=== PATIENT | female | born 1985 | race Caucasian/White ===

== ENCOUNTER 2019-05-16 12:00 | Outpatient (CLI) | payer OTHER, SELFPAY | END 2019-05-16 12:01 | disposition home or self-care (01) | LOC: SLEEP 05-18 09:25 | PROVIDERS: Family Provider Electrodiagnostic Medicine; PCP Electrodiagnostic Medicine; Visit Provider Internal Medicine | DX: G47.33 Obstructive sleep apnea (adult) (pediatric) (principal) | CPT/HCPCS: G0399 ==

== ENCOUNTER 2019-06-28 06:13 | Day surgery (SDC) | payer OTHER, SELFPAY ==
[2019-06-27 08:38] VITALS: BMI 40.5
--- NOTE | 2019-06-28 06:35 | ANES.PREANE2 ---
Pre-Anesthetic Assessment Pre-Anesthetic Assessment: Height/Weight: Height 1.6 m Weight 103.873 kg Preop Diagnosis: Screening for gastric sleeve Proposed Procedure: Operation Date: 06/28/19 07:40 Proposed Procedures p EGD 84846 K21.9(Not Applicable) - Rasheed Jiménez MD Familial anesthetic complications: None Was Beta Checo taken within 24 hours: N/A Last intake: Intake Last Liquid Date 06/27/19 Last Liquid Time 22:00 Last Solid Date 06/27/19 Last Solid Time 20:00 Social: Social History: No alcohol and No tobacco Exam: Pre-Anes Outpt Exam: alert, oriented x 3, clear to auscultation bilaterally and regular rate & rhythm Airway: Submandibular: WNL Cervical ROM: WNL MP: 2 Dentition: Full Pulmonary: Pulmonary: Sleep apnea (cpap) CV/HEM: CV/HEM: None reported : : None reported Hepatic: Hepatic: None reported GI: GI: None reported Metabolic: Metabolic: Morbid obesity Musc/skel: Musc/skel: None reported Neuropsych: Neuropsych: None reported Anesthetic Plan: ASA status: 2 Anesthesia: MAC Risk of > 500 ml blood loss (7ml/kg in children): No PFSH Anesthesia PFSH: Social History Smoking and tobacco status: never smoked Second hand smoke exposure: No Alcohol intake: never Adopted: No Caregiver/support person: Yes Lives independently: Yes Household members: spouse Housing: House Marital status: service: No Current occupational status: employed Current occupational exposures/hazards: No Pets and animals: No History of recent travel: Yes Leisure activites: exercise Sexually active: Yes Current gender identity: Female Hazel/Anglican: Worship Special hazel needs: No Agree to transfusion: No Financial difficulty paying for basics: Decline to Answer Data Anesthesia Cardiac Studies: No Data to Display
[2019-06-28 06:38] LABS: OR HCG Qualitative Urine Negative (Negative)
[2019-06-28 06:41] VITALS: BP 124/67; PULSE 86; RESP 18; TEMP 36.1; O2SAT 98
[2019-06-28] MEDS: sodium chloride 0.9% 1,000 ML 30 ML IV (06:52)
--- NOTE | 2019-06-28 06:54 | W.PM.OPSUD ---
Surgery/Procedure H&P Update DATE OF PROCEDURE: June 28, 2019 DATE H&P PERFORMED: 06/19/19 H&P UPDATE INFORMATION: I have reviewed H&P completed within last 30 days, I have examined patient prior to procedure and No changes to prior documentation PREOP DIAGNOSIS: Screening for gastric sleeve PRIMARY INDICATION FOR PROCEDURE: History of GERD associated with morbid obesity PLANNED PROCEDURE: Operation Date: 06/28/19 07:40 Proposed Procedures p EGD 02091 K21.9(Not Applicable) - Rasheed Jiménez MD
[2019-06-28 07:47] VITALS: BP 125/63; PULSE 88; RESP 16; TEMP 36.1; O2SAT 96
[2019-06-28 08:01] VITALS: BP 120/63; PULSE 80; RESP 16; TEMP 36.1; O2SAT 99
[2019-06-28 08:10] VITALS: BP 122/80; PULSE 76; RESP 18; O2SAT 96
== END 2019-06-28 08:20 | disposition home or self-care (01) ==
PROVIDERS: Family Provider Electrodiagnostic Medicine; PCP Electrodiagnostic Medicine; Visit Provider Surgery
PROC: 0DJ08ZZ Inspection of Upper Intestinal Tract, Via Natural or Artificial Opening Endoscopic (ICD-10-PCS; CPT 43235; principal; 2019-06-28 07:35)
DX: K21.9 Gastro-esophageal reflux disease without esophagitis (principal); K29.70 Gastritis, unspecified, without bleeding; E66.01 Morbid (severe) obesity due to excess calories; Z68.41 Body mass index [BMI] 40.0-44.9, adult; G47.30 Sleep apnea, unspecified
CPT/HCPCS: 43235; 12345; 84703; J2001; J2704; J7030

== ENCOUNTER → 2019-08-09 13:25 | Outpatient (BNVA) | payer OTHER, SELFPAY | PROVIDERS: Family Provider Electrodiagnostic Medicine; PCP Electrodiagnostic Medicine; Visit Provider Obstetrics & Gynecology | DX: Z11.3 Encounter for screening for infections with a predominantly sexual mode of transmission (principal) | CPT/HCPCS: 86592; 86803; 87340; 87491; 87591; 87661; 87806 ==

== ENCOUNTER → 2019-10-23 13:38 | Outpatient (BNVA) | payer OTHER, SELFPAY | PROVIDERS: Family Provider Electrodiagnostic Medicine; PCP Electrodiagnostic Medicine; Referring Provider Dermatology; Visit Provider Dermatology | DX: L70.0 Acne vulgaris (principal); L73.0 Acne keloid; D22.9 Melanocytic nevi, unspecified; S40.869A Insect bite (nonvenomous) of unspecified upper arm, initial encounter; W57.XXXA Bitten or stung by nonvenomous insect and other nonvenomous arthropods, initial encounter; X58.XXXA Exposure to other specified factors, initial encounter | CPT/HCPCS: 99203; 99204 ==

== ENCOUNTER → 2020-01-17 09:13 | Outpatient (BNVA) | payer OTHER, SELFPAY | PROVIDERS: Family Provider Electrodiagnostic Medicine; PCP Electrodiagnostic Medicine; Visit Provider Surgery | DX: Z20.828 Contact with and (suspected) exposure to other viral communicable diseases (principal) | CPT/HCPCS: 87635 ==

== ENCOUNTER 2020-01-26 13:12 | Outpatient (CLI) | payer OTHER, SELFPAY ==
[2020-01-26 14:14] LABS: Basophils % 0.4 %; Eosinophils # 0.1 10^3/uL (0.0-0.8); Eosinophils % 0.9 %; Hematocrit 44.7 % (37.0-47.0); Hemoglobin 14.9 g/dL (11.5-15.3); Lymphocytes # 1.8 10^3/uL (0.8-4.8); Lymphocytes % 23.3 %; Mean Corpuscular HGB Conc 33.3 g/dL (30.0-36.0); Mean Corpuscular Hemoglobin 27.6 pg (28.0-34.0); Mean Corpuscular Volume 82.9 fL (81-99); Mean Platelet Volume 9.1 fL (7.4-10.4); Monocytes # 0.5 10^3/uL (0.2-0.9); Monocytes % 6.7 %; Neutrophils % 68.6 %; Nucleated Red Blood Cells % 0 %; Platelet Count 310 10^3/cmm (130-400); Red Blood Count 5.39 10^6/uL (4.1-5.3); Red Cell Distribution Width 12.4 % (12.1-15.1); White Blood Count 7.7 10^3/uL (4.0-10.0)
[2020-01-26 14:55] LABS: Calcium 9.9 mg/dL (8.5-10.5); Parathyroid Hormone 31.9 pg/mL (15-65)
[2020-01-26 14:57] LABS: Alanine Aminotransferase 43 U/L (0-33); Albumin Level 4.6 g/dL (3.5-5.2); Alkaline Phosphatase 76 IU/L (35-105); Anion Gap 15.8 (5-19); Aspartate Amino Transferase 21 U/L (0-32); Blood Urea Nitrogen 14 mg/dL (6-20); Carbon Dioxide 25 mmol/L (22-29); Chloride 98 mmol/L (98-107); Cholesterol 163 mg/dL (0-200); Ferritin 122 ng/mL (15-150); Glomerular Filtration Rate 96.4 mL/min (90-130); Glucose 80 mg/dL (65-115); HDL Cholesterol 44 mg/dL (60-100); Iron 41 ug/dL (37-145); LDL Cholesterol Calculated 90 mg/dL (50-129); LDL HDL Ratio 2.05 RATIO (0.00-3.22); Magnesium 2.1 mg/dL (1.7-2.3); Osmolality Calculated 279 mOsm/kg (285-295); Percent Saturation 11.1 % (20-50); Phosphorus 3.8 mg/dL (2.5-4.5); Potassium 3.8 mmol/L (3.5-5.1); Sodium 135 mmol/L (136-145); Thyroid Stimulating Hormone 1.31 uIU/mL (0.27-4.20); Total Bilirubin 0.7 mg/dL (0.15-1.2); Total Iron Binding Capacity 367 mcg/dl; Total Protein 7.6 g/dL (6.6-8.7); Triglycerides 147 mg/dL (0-150); Unsaturated Iron Binding 326 ug/dL (112-347); Vitamin B12 491 pg/mL (232-1245)
[2020-01-26 15:04] LABS: Folate Level 14.5 ng/mL (4.8-37.3)
[2020-01-26 15:38] LABS: Estmated Average Glucose 85; Hemoglobin A1C 4.6 % (4.0-6.0)
== END 2020-01-26 13:13 | disposition home or self-care (01) ==
PROVIDERS: PCP Nurse Practitioner Family; Visit Provider Surgery
DX: E88.81 Metabolic syndrome and other insulin resistance (principal)
CPT/HCPCS: 36415; 80053; 80061; 82310; 82607; 82728; 82746; 83036; 83540; 83550; 83735; 83970; 84100; 84443; 85025; 87635

== ENCOUNTER → 2020-02-17 11:10 | Outpatient (BNVA) | payer OTHER, SELFPAY | PROVIDERS: PCP Nurse Practitioner Family; Visit Provider Surgery | DX: Z20.828 Contact with and (suspected) exposure to other viral communicable diseases (principal); Z01.812 Encounter for preprocedural laboratory examination | CPT/HCPCS: 87635 ==

== ENCOUNTER 2020-02-20 16:12 | Inpatient (IN) | payer OTHER, SELFPAY ==
[2020-02-19 09:07] VITALS: BMI 34.0
[2020-02-20] VITALS (28 sets, daily range): BP systolic 113–160; BP diastolic 65–105; PULSE 76–102; RESP 14–20; TEMP 36.2–37.1; O2SAT 92–100
--- NOTE | 2020-02-20 06:54 | W.PM.OPSUD ---
Surgery/Procedure H&P Update DATE OF PROCEDURE: February 20, 2020 DATE H&P PERFORMED: 01/11/20 H&P UPDATE INFORMATION: I have reviewed H&P completed within last 30 days, I have examined patient prior to procedure and No changes to prior documentation (Patient was educated more about the reinforcement materials and different types including but not limited to seamguard, Endopath) PREOP DIAGNOSIS: Obesity PRIMARY INDICATION FOR PROCEDURE: The same PLANNED PROCEDURE: Operation Date: 02/20/20 08:15 Proposed Procedures p Laparoscopic Gastric Sleeve 98363 E66.01(Not Applicable) - Rasheed Jiménez MD s EGD 70278 E66.01(Not Applicable) - Rasheed Jiménez MD
[2020-02-20] MEDS: heparin 5,000 unit/mL INJ 1 mL 5000 UNIT SUBCUT ×2 (06:56→22:26)
[2020-02-20] MEDS: scopolamine 1.5 Patch 1 PATCH TRANSDERMA ×2 (06:58→16:26)
[2020-02-20] MEDS: ondansetron 2 mg/ML SDV 2 mL 4 MG IVP ×2 (06:59→18:51)
--- NOTE | 2020-02-20 07:04 | ANES.PREANE2 ---
Pre-Anesthetic Assessment Pre-Anesthetic Assessment: Height/Weight: Height 1.6 m Weight 87.09 kg Temp Pulse Resp BP Pulse Ox 98.4 F 90 18 121/87 100 02/20/20 06:43 02/20/20 06:43 02/20/20 06:43 02/20/20 06:43 02/20/20 06:43 Preop Diagnosis: Obesity Proposed Procedure: Operation Date: 02/20/20 08:15 Proposed Procedures p Laparoscopic Gastric Sleeve 96390 E66.01(Not Applicable) - Rasheed Jiménez MD s EGD 78890 E66.01(Not Applicable) - Rasheed Jiménez MD Was Beta Checo taken within 24 hours: N/A Last intake: Intake Last Liquid Date 02/19/20 Last Liquid Time 20:00 Last Solid Date 02/16/20 Last Solid Time 22:00 Social: Social History: No alcohol and No tobacco Exam: Pre-Anes Outpt Exam: alert, oriented x 3, clear to auscultation bilaterally and regular rate & rhythm Airway: Submandibular: WNL Cervical ROM: WNL MP: 2 Dentition: Full Pulmonary: Pulmonary: None reported CV/HEM: CV/HEM: None reported : : None reported Hepatic: Hepatic: None reported GI: GI: GERD Metabolic: Metabolic: None reported Musc/skel: Musc/skel: None reported Neuropsych: Neuropsych: None reported Anesthetic Plan: ASA status: 3 Anesthesia: General Other: h/o PONV--TIVA Risk of > 500 ml blood loss (7ml/kg in children): No PFSH Anesthesia PFSH: Medical History Anxiety Diagnosed in about 2015 and she used to take alprazolam as needed for this. She states that she currently has a therapist whom she talks to and this helps. She follows with her primary care provider Dr. Farr No pertinent past medical history Denies diabetes, asthma, hypertension, seizures, DVT/PE PMD-Dr. Farr Surgical History History of esophagogastroduodenoscopy (EGD) 06/2019 History of tonsillectomy 06/2019 at the age of 33 [address] Brito as this was thought to contribute to sleep apnea History of tubal ligation post tubal ligation by Dr. Quiroz at [facility] [place]. 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 wisdom tooth extraction Family History Father Diabetes Family/Other Diabetes maternal aunt Grandmother Diabetes maternal Stroke paternal Grandfather Stroke paternal and maternal Denies family history of Cervical cancer Colon cancer Ovarian cancer DVT (deep venous thrombosis) Heart disease Hyperlipidemia Breast cancer Anesthesia complication Bleeding disorder Pulmonary embolism Hypertension Uterine cancer Thyroid condition Social History Smoking and tobacco status: never smoked Alcohol intake: never Adopted: No Caregiver/support person: Yes Lives independently: Yes Household members: spouse Housing: House service: No Current occupational status: employed Pets and animals: No History of recent travel: No Sexually active: No Special christiano needs: No Additional social history: - Tobacco Use: Denies current or past use Drug Use: Used marijuana a couple of times as a teenager; denies any other drug use Alcohol Use: Denies 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
[2020-02-20] MEDS: sodium chloride 0.9% 1,000 ML 999 ML IV (07:16)
[2020-02-20] MEDS: sodium chloride 0.9% 1,000 ML 30 ML IV ×2 (08:20→12:16)
--- NOTE | 2020-02-20 11:34 | P.OP_ITS ---
Operative Report Date of procedure: February 20, 2020 Pre-op Diagnosis: Obesity Post-op diagnosis: same Procedure Done: Laparoscopic vertical sleeve gastrectomy and intraoperative EGD Specimens removed/disposition: Subtotal gastrectomy status post gastric sleeve Surgeon: Rasheed Jiménez Electric Meter Tester: Surgical Isha Bustos and Hattie Circulating nurses Rosa and Martha Anesthesia: General (hydrotel operator Smart and ended) Estimated blood loss (mL): 25 IV fluids (mL): 1,400 Urine output (mL): 400 Complications: No immediate complication Condition: stable Disposition: floor Brief History: This is a pleasant 34 years old female patient with history of obesity and associated medical comorbidities. Undergone supervised medical weight loss and patient showed appropriate candidacy for laparoscopic vertical sleeve gastrectomy. Full H&P per chart Informed consent per chart Procedure: Patient was identified in holding area , appropriate pharmacologic DVT prophylaxis was given and preoperative IV fluid hydration, patient was then taken to the operating room where the patient was placed in supine position, intubated by anesthesia prophylactic antibiotics were given per protocol,Time- out was done verifying the patient's name/date of /planned procedure and destination after the procedure, all were in agreement.SCDs confirmed to be functioning, and beta grace protocol was confirmed. A Castaneda catheter was inserted by the circulating nurse revealing clear urine. A foot board was applied to secure the patient while the patient is placed in reversed Trendelenburg, all pressure points were padded, and the patient was appropriately secured to the table, anesthesia was asked to rotate the table back and forth to verify that the patient is appropriately secured, and that was the case. The abdomen was prepped and draped under the usual sterile technique. A 1 cm transverse incision was made with a 15 blade scalpel approximately 15 cm below the xiphoid process and 3 cm left of the midline.A 12 mm optical trocar port was placed under direct vision into the peritoneal cavity without intial evidence of injury to peritoneal structures upon entry. The peritoneal cavity was insufflated with carbon dioxide gas up to 15 mmHg pressure.A 45? angle laparoscopy was placed through the port into the peritoneal cavity there was no significant blood, fluid, or evidence of intra-abdominal injury under direct visualization,Longer trocars were then used;a 12 mm trocar port was placed in the right epigastric region and a fourth 5 mm trocar port was placed in the mid epigastric region more caudad than and medial to the previous port. A 5 mm trocar port was placed in the left lateral flank and additional 5 mm trocar was inserted midway between the left lateral flank trocar and the initial 12 mm trocar. I lifted the omentum up to make sure there were no injuries encountered from the initial trocar insertion, there was some oozing from the omentum that was secured by harmonic scalpel yet otherwise the underlying transverse colon and small bowel viscera were normal. A subxiphoid stab incision was made and dissection into the peritoneum with 5 mm obturator. A grasping laparoscopic clamp was inserted through here and clamped to the right akila of the diaphragm to elevate The liver for the entirety of the case. All trocars inserted were long arc trocars due to the thick layer of subcutaneous tissue that the patient has Patient was then placed in the reversed Trendelenburg Following this, the greater curvature of the stomach was freed from the omentum using the harmonic scalpel. This division included the short gastric vessels proximally. This dissection was carried from approximately 4 cm-6 cm proximal to the pylorus and extending all the way up to the angle of Hiss. During this process the posterior aspect of the stomach was mobilized from the underlying peritoneum and the posterior aspect of the stomach was well exposed. With the greater curvature of the stomach exposed from within 4-6 cm of the pylorus and extending to the angle of Hiss, which also included the posterior stomach, a 40 [place] standard template passed under direct vision down the esophagus, stomach, and into the first part of the duodenum by the anesthesia provider and under direct guidance and visualization by me,via the laparoscopy. Using the template 40 [place] aligned along the lesser curvature of the stomach and all the way to the first part of the Duodenum,the 40 [place] Bougie was used as a template the laparoscopic vertical gastric sleeve was performed starting from a point about 5 cm from the pylorus along the greater curvature.Using the OnAir3G Laparoscopic SHAHRZAD linear cutting stapler with OnAir3G Endopath enforcement, a series of aliya were used to transect the stomach in a vertical fashion along the left side of the template. Through the entire division of the stomach using the staplers,the template was always checked to be in good place and well aligned to the lesser curvature while dividing the stomach. This was carried all the way to the angle of Hiss.Green loads were used for the distal two thirds of the stomach and Gold loads were used for the more proximal part of the stomach. The staple line along the remaining tubularized stomach was tested for leaks and bleeding under direct vision as the 40 [place] template was exchanged (and there was no evidence of blood on the tip of the template) by a standard diagnostic EGD via the mouth by my me afte I scrubbed out, insufflation was achieved and the staple line submerged under saline ,meanwhile a clamp was applied distally onto the end of the tubularized stomach to allow insufflation test for leak. There was no evidence of leak .There was adequate hemostasis along the staple line.EGD was taken out at this point after deflation of the tubularized stomach. The transected partial stomach, which included the greater curvature, was removed from the peritoneum through the first 12 mm trocar site, and was sent for permanent pathology Prior to closure of the fascia. A final look laparoscopy identified no injuries, there was mild oozing at the fat pad at the GE junction and 5 m clips were applied as well as the distal part of the conduit. An interrupted #1 PDS suture on a granny needle suture passer was used to close the right epigastric and the other 12 mm trocar left of the midline fascial defects under direct visualization.The other trocars were removed under direct vision and no evidence of bleeding was identified. The pneumoperitoneum was decompressed.All skin incisions were irrigated with saline, then closed with aliya, followed by application of sterile dressings.The patient was extubated and taken to the recovery room with normal vital signs. All counts of instruments,sponges and needles were completed at the end of the procedure I was present for the whole entire procedure
[2020-02-20] MEDS: fentaNYL 50 mcg/mL INJ 2mL IVP (12:05)
[2020-02-20] MEDS: HYDROmorphone 1 mg/mL INJ 1 mL 0.5 MG IVP (12:33)
[2020-02-20] MEDS: hetastarch 30 GM/500 ML PREMIX IV (12:45)
--- NOTE | 2020-02-20 13:13 | ANE.PACU2 ---
Inpatient post-anesthesia follow up: Airway intact: Yes Vital signs: Temperature 97.1 F Pulse Rate 81 Respiratory Rate 16 Blood Pressure 145/98 Pulse Oximetry 98 Oxygen Delivery Me thod Room Air Oxygen Flow Rate 6 Fraction of Inspir ed Oxygen Hydration adequate: Yes Nausea and vomiting: Yes Pain level: 2 Additional Comments: Sedated, some nausea (Zofran, decadron, benadryl, phenergan, scope, TIVA...)
[2020-02-20] MEDS: lactated ringers 1,000 ML 150 ML IV ×2 (16:23→22:40)
[2020-02-20] MEDS: HYDROmorphone 1 mg/mL INJ 1 mL (16:25)
[2020-02-20] MEDS: promethazine 25 mg/mL SDV 1 mL (16:25)
[2020-02-20] MEDS: fentaNYL 50 mcg/mL INJ 2mL 100 MCG (16:25)
[2020-02-20] MEDS: metoclopramide 5 mg/mL SDV 2 mL IVP ×2 (16:28→22:40)
[2020-02-20] MEDS: morphine 4 mg/mL SDV 1 mL IVP ×3 (16:35→22:30)
[2020-02-20 21:21] LABS: Glucose Point of Care 107 mg/dL (70-110)
[2020-02-20] MEDS: promethazine 25 mg/mL SDV 1 mL 12.5 MG IM (22:35)
[2020-02-21] VITALS (11 sets, daily range): BP systolic 112–125; BP diastolic 64–80; PULSE 80–100; RESP 14–18; TEMP 36.7–37.3; O2SAT 98–100
--- NOTE | 2020-02-21 | FL_ITS ---
WS: [id number] UPPER GI TECHNICAL: Single contrast upper GI Gastrografin FLUOROSCOPY TIME: 1.0 minutes CLINICAL INFORMATION: GASTRIC SLEEVE COMPARISON: None. FINDINGS: Postoperative changes gastric sleeve procedure. Normal stomach and proximal duodenum. Normal stomach emptying. C-loop of the duodenum is normal. No evidence of gastric leak. IMPRESSION: Normal appearance postoperative gastric sleeve.
[2020-02-21] MEDS: ondansetron 2 mg/ML SDV 2 mL 4 MG IVP ×3 (02:28→16:31)
[2020-02-21] MEDS: morphine 4 mg/mL SDV 1 mL IVP ×4 (02:30→13:15)
[2020-02-21 02:37] LABS: Hematocrit 38.1 % (37.0-47.0); Hemoglobin 12.3 g/dL (11.5-15.3)
[2020-02-21 03:01] LABS: Blood Urea Nitrogen 5 mg/dL (6-20); Calcium 8.2 mg/dL (8.5-10.5); Carbon Dioxide 22 mmol/L (22-29); Chloride 104 mmol/L (98-107); Glomerular Filtration Rate 115.1 mL/min (90-130); Glucose 113 mg/dL (65-115); Osmolality Calculated 280 mOsm/kg (285-295); Sodium 136 mmol/L (136-145)
--- NOTE | 2020-02-21 04:43 | PC.NURSE ---
pATIENT AMBULATED 4 TIMES DURING THE NIGHT
[2020-02-21] MEDS: lactated ringers 1,000 ML 150 ML IV ×3 (04:58→16:36)
[2020-02-21] MEDS: metoclopramide 5 mg/mL SDV 2 mL IVP ×2 (04:59→13:15)
--- NOTE | 2020-02-21 05:30 | PM.PN ---
Subjective Subjective: Interval history: Patient overall feeling better and less nauseated. 1800 mL urine output. No vomiting and passing some gas. No acute events overnight Vitals/I&O/Wt Last Vital Signs Temp 98.0 F 02/21/20 04:19 Pulse 94 02/21/20 04:44 Resp 14 02/21/20 05:01 BP 124/64 02/21/20 04:19 Pulse Ox 99 02/21/20 04:19 02/20/20 02/20/20 02/21/20 14:59 22:59 06:59 Intake Total 3560 / 3560 1042.5 / 4602.5 945 / 5547.5 Output Total 1525 / 1525 900 / 2425 1900 / 4325 Balance 2034 / 2035 142.5 / 2177.5 -955 / 1222.5 Weight last 48 hrs Weight 192 lb Physical Exam Narrative: EXAM NARRATIVE: Patient is conscious alert oriented X3 BMI 34 Head and neck examination PERRLA no masses no cervical lymphadenopathy no jaundice Cardiac examination audible S1-S2 no murmurs no gallops no arrhythmias Chest is clear bilateral,abscence of Rhonchi or wheezes,no surgical emphysema Abdomen nontender except mildly at the incision sites, nondistended soft no organomegaly guarding or rigidity/no signs of peritonitis Extremities no cyanosis no clubbing no edema Urinary Catheter Management^: Castaneda: Cath Placed During This Visit: yes, but has since been removed by the nurse Reason for Continuing Indwelling Catheter: Perioperative Use in Selected Surgeries Urinary Catheter Date of Insertion: 02/20/20 Urinary Catheter Time of Insertion: 09:15 Date Urinary Catheter Removed: 02/21/20 Time Urinary Catheter Discontinued: 00:03 Data : 02/21/20 02:22 02/21/20 02:22 A&P Assessment and plan (1) Status post laparoscopic sleeve gastrectomy: 0530 am Status post laparoscopic sleeve gastrectomy 02/20/2020 We will continue n.p.o. and IV fluids Awaiting upper GI study once this is cleared we will start the patient on diet Encourage ambulation Incentive spirometer every hour I's and O's DC Castaneda catheter Assurance and education All questions have been answered and all concerns have been addressed to patient's satisfaction. On evening rounds Through the day the upper GI study was done and was appropriate status post laparoscopic sleeve gastrectomy Patient has been tolerating p.o. intake and will plan to discharge home today Status: Acute Attestations Medical Necessity Statement*: Inpatient hospitalization for surgical care Time Spent in Patient Care: (>than 50% of time spent in counselling and/or direct pt care on unit). Coding Level of Care Code Acute Retail Sales Associate Bilingual for Chg Fwd Diagnoses Status post laparoscopic sleeve gastrectomy Z98.84
--- NOTE | 2020-02-21 05:51 | PC.NURSE ---
Patient stated she is passing gas.
[2020-02-21] MEDS: heparin 5,000 unit/mL INJ 1 mL 5000 UNIT SUBCUT ×2 (06:03→16:08)
[2020-02-21 06:14] LABS: Glucose Point of Care 88 mg/dL (70-110)
[2020-02-21] MEDS: promethazine 25 mg/mL SDV 1 mL 12.5 MG IM (07:41)
--- NOTE | 2020-02-21 09:08 | PC.CHAP ---
Pastoral Care Encounter/Spiritual Assessment Type of Contact [] Declined poly area supervisor visit [] Patient/Family/Request visit [] Outpatient visit [] Follow-up visit [] Physician referral [] Code/Alert [X] Routine visit [] Staff referral [] Actively dying [] Patient sleeping [] Family support [] [] Out of room [] Palliative care [] [] Receiving care in room [] Pre-surgical visit [] Trauma [] Long length of stay [] ICU visit [] Other: Relational/Emotional Strength [] Patient feels connected with others/family/visitors/staff [] Distress [] Loneliness/isolation [] Abandonment Spirituality of Patient [] Person of Hazel [] Attends Synagogue of their Hazel [] Believes in Prayer [] Reads Bible or Nondenominational materials [] There are Spiritual issues to be addressed Worksite Wellness Practitioner Interventions [] Prayer [] Active listening [] Non-anxious presence [] Spiritual/emotional support [] Crisis/trauma care [] Spiritual counseling [] Bereavement support [] Provided bereavement packet [] Provided Bible/devotional materials [] Provided toy/stuffed animal, coloring book to patient or family member [] Provided Communion [] Anointing/[place] [] Salvation [] Completed spiritual assessment [] Other: Impact on Illness or Injury [] Angry [] Fearful [] Anxious [] Often cries [] Exhaustion [] Unable to work [] Unable to attend mormonism [] Unable to walk/stand [] Unable to read [] Unable to drive [] Unable to eat/drink [] Unable to sleep [] Unable to be with family [] Patient intubated [] Other: Summary Time spent with patient
[2020-02-21] MEDS: diatrizoate meglumine 120 mL Sol PO (09:45)
[2020-02-21 11:59] LABS: Glucose Point of Care 68 mg/dL (70-110)
[2020-02-21] MEDS: alum-mag-hydroxide-sime 30 mL UDC 15 ML PO (13:18)
[2020-02-21 16:31] LABS: Glucose Point of Care 71 mg/dL (70-110)
--- NOTE | 2020-02-21 16:56 | P.DS_ITS ---
Discharge Providers Date of Admission: 02/20/20 16:12 Date of Discharge: February 21, 2020 Attending Provider at Admission: Rasheed Jiménez MD Attending Provider at Discharge: Rasheed Jiménez MD Primary Care Provider: Veena Sorenson APN Diagnoses at Discharge Discharge Diagnosis (1) Status post laparoscopic sleeve gastrectomy: Status: Resolved Permanent problem details: Condition resolved and patient is appropriately discharged home Reason for Visit Reason for Visit: laparoscopic sleeve gastrectomy and egd Hospital Course Hospital Course Patient overall is doing well status post laparoscopic sleeve gastrectomy, upper GI study was done and was appropriate and patient was started on p.o. intake and she has been tolerating diet. Pain is under control and she is passing gas. Good urine output. And nausea is under appropriate control. Vital signs maintained to be stable. We will plan to discharge patient home today follow-up at the bariatric surgery office in 1 week Physical Exam Narrative: EXAM NARRATIVE: Patient is conscious alert oriented X3 BMI 34 Head and neck examination PERRLA no masses no cervical lymphadenopathy no jaundice Abdomen nontender except mildly at the incision sites, nondistended soft no organomegaly guarding or rigidity/no signs of peritonitis, dressing in place without complication Dry dressing in place Extremities no cyanosis no clubbing no edema Urinary Catheter Management^: Castaneda: Cath Placed During This Visit: yes, but has since been removed by the nurse Reason for Continuing Indwelling Catheter: Perioperative Use in Selected Surgeries Urinary Catheter Date of Insertion: 02/20/20 Urinary Catheter Time of Insertion: 09:15 Date Urinary Catheter Removed: 02/21/20 Time Urinary Catheter Discontinued: 00:03 Discharge Data Data Completed and Pending: Completed Studies During Hospitalization Category Date Time Status [place] 40496 Routine Exams 02/21/20 Completed Pending at discharge Category Date Time Status ES surgery / GI i mages Routine Exams 02/20/20 08:19 Ordered Pathology: Surgic al [PTH] Routine Pth 02/20/20 11:55 Received Labs from last 24 hours 02/21/20 02/21/20 02/21/20 16:22 11:30 06:02 Hgb Hct Sodium Potassium Chloride Carbon Dioxide Anion Gap BUN Creatinine GFR Calculation Glucose POC Glucose 71 68 L 88 Calculated Osmolal ity Calcium 02/21/20 02/21/20 02/20/20 02:22 02:22 18:50 Hgb 12.3 Hct 38.1 Sodium 136 Potassium 4.0 Chloride 104 Carbon Dioxide 22 Anion Gap 14.0 BUN 5 L Creatinine 0.6 GFR Calculation 115.1 Glucose 113 POC Glucose 107 Calculated Osmolal ity 280 L Calcium 8.2 L Vitals: Last Vital Signs Temp 98.7 F 02/21/20 15:58 Pulse 80 02/21/20 15:58 Resp 18 02/21/20 15:58 BP 125/77 02/21/20 15:58 Pulse Ox 100 02/21/20 15:58 Discharge Plan Discharge Patient Disposition: Home Condition: Stable Prescriptions: [place] 5-325 mg tablet 1 tab PO Q6H PRN (Reason: pain) Qty: 28 RF: 0 scopolamine base 1 mg over 3 days patch 3 day 1 patch transdermal Q3D PRN (Reason: nausea and vomiting) Qty: 4 RF: 1 Zofran 4 mg tablet 4 mg PO Q6H PRN (Reason: nausea and vomiting) Qty: 30 RF: 2 promethazine 12.5 mg tablet 12.5 mg PO Q6H PRN (Reason: nausea and vomiting) Qty: 30 RF: 1 Continued tretinoin 0.1 % cream 1 applic TOPICAL DAILY Qty: 45 RF: 3 esomeprazole magnesium 20 mg capsule,delayed release(DR/EC) 20 mg PO DAILY Qty: 30 RF: 2 Discharge Orders: Discharge Order (Routine); Ordered 02/21/20 Ordered By: Rasheed Jiménez Referrals: Rasheed Jiménez MD [Physician] - 4-7 days (Please call the [facility] tomorrow morning to make a follow up appointment to be seen in one week.) Discharge Diet: As Directed Discharge Activity: Limit activity as instructed Patient Instructions: Scopolamine (Absorbed through the skin), Hydrocodone/Acetaminophen (By mouth), Promethazine (By mouth), Ondansetron (By mouth), Laparoscopic Sleeve Gastrectomy (DC) Activity Restrictions/Additional Instructions: 1. Patient can shower after 48 hours from surgery 2. Remove Band-Aids tomorrow and shower 3. Up and walking as tolerated 4. Do lift more than 5 pounds first 2 weeks after surgery and not more than 25 pounds 6 to 8 weeks after surgery. 5. Do not operate heavy machinery or drive while using pain medications. 6.Contact the office or return to the ER for worsening nausea vomiting fevers or chills, or noticing any redness around incision sites or discharge. 7. Avoid constipation Discharge Attestations Time Spent in Discharge Care*: greater than 30 min Specific Discharge Activities: educating patient and educating and/or supporting family/caregiver Status at Discharge: Cognitive status at discharge: cognitively intact , Behavioral status at discharge: cooperative , Functional status at discharge: independent ambulation Overall status at discharge: patient is progressing back to baseline Quality Metrics Clinical Quality Measures During this hospital stay, did patient experience: None Coding Level of Care Code Acute Pinion And Wheel Truer for Chg Fwd Diagnoses Status post laparoscopic sleeve gastrectomy Z98.84
== END 2020-02-21 17:55 | disposition home or self-care (01) | DRG 621 ==
LOC: MEDSURG 02-21 06:12
PROVIDERS: Admitting Provider Surgery; PCP Nurse Practitioner Family; Visit Provider Surgery
PROC: 0DB64Z3 Excision of Stomach, Percutaneous Endoscopic Approach, Vertical (ICD-10-PCS; CPT 43775; principal; 2020-02-20 08:00)
PROC: 0DJ08ZZ Inspection of Upper Intestinal Tract, Via Natural or Artificial Opening Endoscopic (ICD-10-PCS; CPT 43235; 2020-02-20 08:00)
DX: E66.9 Obesity, unspecified (principal); Z68.34 Body mass index [BMI] 34.0-34.9, adult; F41.9 Anxiety disorder, unspecified; N83.201 Unspecified ovarian cyst, right side
CPT/HCPCS: 12345; 36415; 36416; 43235; 74240; 80048; 82962; 85014; 85018; 88305; 96365; 96372; 96374; C9290; J0131; J1100; J1170; J1200; J1644; J2270; J2405; J2550; J2704; J2765; J3010; J3490; J7030; Q9963

== ENCOUNTER 2020-05-16 10:45 | Inpatient (IN) | payer OTHER, SELFPAY ==
[2020-05-16] VITALS (59 sets, daily range): BP systolic 83–138; BP diastolic 49–89; PULSE 78–126; RESP 13–24; TEMP 36.9; O2SAT 91–100; BMI 24.7
--- NOTE | 2020-05-16 10:49 | ED_ITS ---
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 Gap (5-19) BUN (6-20) mg/dL Creatinine (0.5-0.9) mg/dL GFR Calculation (90-130) mL/min Glucose (65-115) mg/dL Calculated Osmolal ity (285-295) mOsm/k g Lactic Acid (0.5-2.2) mmol/L Calcium (8.5-10.5) mg/dL Magnesium (1.7-2.3) mg/dL Total Bilirubin (0.15-1.2) mg/dL AST (0-32) U/L ALT (0-33) U/L Alkaline Phosphata se (35-105) IU/L Creatine Kinase 54 (26-192) U/L Troponin T Gen 5 n g/L (0-10) ng/L Total Protein (6.6-8.7) g/dL Albumin (3.5-5.2) g/dL Globulin (1.3-4.6) g/dL HCG, Qual (Negative) Urine Color Yellow (Yellow) Urine Appearance Hazy A (CLEAR) Urine pH 5 (5-7) Ur Specific Gravit y 1.025 (1.005-1.030) Urine Protein Neg (Negative) Urine Glucose (UA) Norm (Normal) Urine Ketones 3+ H (Negative) Urine Blood Neg (Negative) Urine Nitrate Negative (Negative) Urine Bilirubin 1+ H (Negative) Urine Urobilinogen 1 H (Negative) mg/dL Ur Leukocyte Ofelia ase Negative (Negative) Urine RBC 0-4 H (0-2) /hpf Urine WBC None (0-5) /hpf Ur Squamous Epith Cells 0-4 H (0-5) /hpf Amorphous Sediment Not Reportable Urine Bacteria 2+ H (NONE) /hpf Salicylates (3-10) mg/dL Urine Opiates Scre en Negative (Negative) ng/mL Acetaminophen (10-30) ug/mL Ur Barbiturates Sc reen Negative (Negative) ng/mL Ur Phencyclidine S crn Negative (Negative) ng/mL Ur Amphetamines Sc reen Positive H (Negative) ng/mL U Benzodiazepines Scrn Negative (Negative) ng/mL Urine Cocaine Scre en Negative (Negative) ng/mL U Marijuana (THC) Screen Positive H (Negative) ng/mL Ethyl Alcohol (0-10) mg/dL Discharge Plan Discharge Patient Disposition: Admitted As Inpatient Admit Provider: Rc Deleon Clinical Impression: Suicidal ideation, Methamphetamine abuse, Acute hypokalemia Condition: Stable Coding Level of Care Code ED Wheel And Pinion Inspector for Felixg Fwd Exam Comprehensive
--- NOTE | 2020-05-16 10:59 | ECG_ITS ---
[facility] Test Date: 2020-05-16 Pat Name: Naida Chowdhury Department: Room: Gender: Female Ladle Operator: : 1985 Requested By: Carol Ann Barrientos Order Number: [id number] Lynda MD: Armani Li M.D. Measurements Intervals [place] Rate: 114 P: 76 [place]: 139 QRS: 90 QRSD: 87 T: 60 QT: 353 QTc: 488 Interpretive Statements SINUS TACHYCARDIA LOW QRS VOLTAGE IN PRECORDIAL LEADS [QRS DEFLECTION < 1.0 mV IN CHEST LEADS] ST DEVIATION AND MODERATE T-WAVE ABNORMALITY, CONSIDER ANTEROLATERAL ISCHEMIA [-0.1+ mV T WAVE IN V3-V6] ST DEVIATION AND MODERATE T-WAVE ABNORMALITY, CONSIDER INFERIOR ISCHEMIA [-0.1+ mV T WAVE IN II/aVF] No previous ECG available for comparison Electronically Signed On 05-16-2020 20:43:39 CDT by Armani Li M.D. [id number]
--- NOTE | 2020-05-16 10:59 | XR_ITS ---
WS: [id number] Exam: XR chest 1V portable [id number] Date/Time of Exam: 05/16/2020 10:59 AM Reason For Exam: AMS Findings: The lungs are clear and fully expanded. Costophrenic angles are sharp. No infiltrates. Bronchovascula r relief appears normal. Cardiac silhouette is unremarkable. Bony elements are intact. XR/XR chest 1V portable [id number] IMPRESSION: Unremarkable chest radiograph.
--- NOTE | 2020-05-16 10:59 | CT_ITS ---
WS: [id number] CT HEAD NONCONTRAST HISTORY: AMS TECHNIQUE: Contiguous axial imaging performed through the brain in 2.5 mm imaging. Bone and soft tiss ue windows. Sagittal and coronal reformats reviewed. All CT scans at [facility] use at ast one of these dose optimization techniques: automated exposure control; mA and/or kV adjustment pe r patient size (includes targeted exams where dose is matched to clinical indication); or iterative r econstruction. DLP: 879.95 mGy.cm COMPARISON: None available. No acute intracranial hemorrhage, midline shift or mass effect. No atrophy or prior infarcts or herniation. Ventricles: Normal size with no hydrocephalus. Cerebellar tonsils and foramen magnum and are not included in this examination. No obvious herniation . Paranasal sinuses: As visualized are clear. Mastoid air cells: Well pneumatized. Calvarium and scalp: Skull is intact with no soft tissue edema or swelling. CT/CT head wo con* [id number] IMPRESSION: Negative head CT.
[2020-05-16 11:27] LABS: Basophils % 0.4 %; Eosinophils % 0.2 %; Hematocrit 42.1 % (37.0-47.0); Hemoglobin 14.2 g/dL (11.5-15.3); Lymphocytes # 0.9 10^3/uL (0.8-4.8); Lymphocytes % 11.1 %; Mean Corpuscular HGB Conc 33.7 g/dL (30.0-36.0); Mean Corpuscular Hemoglobin 28.7 pg (28.0-34.0); Mean Corpuscular Volume 85.1 fL (81-99); Mean Platelet Volume 10.3 fL (7.4-10.4); Monocytes # 0.7 10^3/uL (0.2-0.9); Monocytes % 8.5 %; Neutrophils # 6.74 10^3/uL (1.8-7.7); Neutrophils % 79.6 %; Nucleated Red Blood Cells % 0 %; Platelet Count 284 10^3/cmm (130-400); Red Blood Count 4.95 10^6/uL (4.1-5.3); Red Cell Distribution Width 13.2 % (12.1-15.1); White Blood Count 8.5 10^3/uL (4.0-10.0)
[2020-05-16 11:52] LABS: HCG, Serum Qual Negative (Negative)
[2020-05-16 12:00] LABS: Alanine Aminotransferase 32 U/L (0-33); Albumin Level 4.5 g/dL (3.5-5.2); Alkaline Phosphatase 67 IU/L (35-105); Anion Gap 22.4 (5-19); Aspartate Amino Transferase 16 U/L (0-32); Blood Urea Nitrogen 11 mg/dL (6-20); Calcium 9.5 mg/dL (8.5-10.5); Carbon Dioxide 22 mmol/L (22-29); Chloride 97 mmol/L (98-107); Globulin 3.1 g/dL (1.3-4.6); Glomerular Filtration Rate 115.1 mL/min (90-130); Glucose 107 mg/dL (65-115); Osmolality Calculated 288 mOsm/kg (285-295); Sodium 139 mmol/L (136-145); Total Bilirubin 0.4 mg/dL (0.15-1.2); Total Protein 7.6 g/dL (6.6-8.7)
[2020-05-16 12:01] LABS: Lactic Sepsis W/Reflex 1.7 mmol/L (0.5-2.2)
[2020-05-16 12:15] LABS: Acetaminophen < 5.0 ug/mL (10-30); Alcohol Level < 10 mg/dL (0-10); Potassium 2.4 mmol/L (3.5-5.1); Salicylate < 0.3 mg/dL (3-10)
[2020-05-16] MEDS: sodium chloride 0.9% 1,000 ML 999 ML IV (12:52)
[2020-05-16] MEDS: potassium chloride ER 20 mEq Tablet 40 MEQ PO (12:53)
[2020-05-16] MEDS: potassium chloride premix 100 ML 25 MEQ IV (12:53)
[2020-05-16 13:11] LABS: Troponin T (5th) Once 6 ng/L (0-10)
[2020-05-16 13:24] LABS: Glucose Urine UA Norm (Normal); Protein Urine Neg (Negative); Specific Gravity, Urine 1.025 (1.005-1.030); Urine Appearance Hazy (CLEAR); Urine Color Yellow (Yellow); pH Urine 5 (5-7)
[2020-05-16 13:25] LABS: Add Urine Microscopic? YES; Bilirubin Urine 1+ (Negative); Blood Urine Neg (Negative); Ketones Urine 3+ (Negative); Leukocyte Esterase Urine Negative (Negative); Nitrate Urine Negative (Negative); Urobilinogen Urine 1 mg/dL (Negative)
[2020-05-16 13:27] LABS: Amphetamines Screen Urine Positive (Negative); Barbiturates Screen Urine Negative (Negative); Benzodiazepines Screen Urine Negative (Negative); Cocaine Screen Urine Negative (Negative); Opiate Screen Urine Negative (Negative); PCP Screen Urine Negative (Negative); THC Screen Urine Positive (Negative)
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
--- NOTE | 2020-05-16 13:43 | PC.NURSE ---
Patient reports she had left her house this morning after getting her children on the bus the morning to meet with Maximiliano Cordova to do his drug running in her vehicle. Then begins crying stating, I dont know if these visions in my head are real are not. i just need serious help.
[2020-05-16 13:48] LABS: Add Urine Culture? No; Bacteria Urine 2+ /hpf; RBC Urine 0-4 /hpf (0-2); Squamous Epithelial Cell Urine 0-4 /hpf (0-5)
[2020-05-16 13:51] LABS: Creatine Phosphokinase 54 U/L (26-192)
--- NOTE | 2020-05-16 15:54 | PC.NURSE ---
[place] kit performed and collected by Dusty Beauchamp BUILDING MAINTENANCE MECHANIC [place] and Neelam Figueroa RN at 1540 and sent with [facility] Officer Jamil Staton at 1550
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
--- NOTE | 2020-05-16 19:14 | ECG_ITS ---
[facility] Test Date: 2020-05-16 Pat Name: Naida Chowdhury Department: Room: [facility] Gender: Female Grounds/Maintenance Specialist: : 1985 Requested By: Rc Deleon Order Number: [id number] Lynda MD: Pretty Bliss M.D. Measurements Intervals [place] Rate: 74 P: 41 MA: 151 QRS: 46 QRSD: 89 T: 24 QT: 401 QTc: 445 Interpretive Statements SINUS RHYTHM LOW QRS VOLTAGE IN PRECORDIAL LEADS [QRS DEFLECTION < 1.0 mV IN CHEST LEADS] INTERPRETATION BASED ON A DEFAULT AGE OF 40 YEARS Compared to ECG 05/16/2020 11:44:37 Sinus tachycardia no longer present T-wave abnormality no longer present Possible ischemia no longer present Electronically Signed On 05-17-2020 18:22:02 CDT by Pretty Bliss M.D. [id number]
--- NOTE | 2020-05-16 19:26 | PC.NURSE ---
[address] Deleon patient's phone privileges. Patient is not to use the phone at this time. Informed patient of doctor's decision. Patient states she will not cooperate with anything until she is allowed to use the phone.
[2020-05-16] MEDS: enoxaparin 40 mg/0.4 mL Syringe SUBCUT (20:21)
[2020-05-16] MEDS: sodium chlor 0.9% + KCl 20 mEq 20 MEQ/1,000 ML BAG 100 MEQ IV (20:21)
[2020-05-16 20:32] LABS: Troponin(5th) Baseline 6 ng/L (0-10)
[2020-05-16 20:34] LABS: Blood Urea Nitrogen 7 mg/dL (6-20); Calcium 8.4 mg/dL (8.5-10.5); Carbon Dioxide 23 mmol/L (22-29); Chloride 104 mmol/L (98-107); Glomerular Filtration Rate 142.1 mL/min (90-130); Glucose 77 mg/dL (65-115); Magnesium 1.9 mg/dL (1.7-2.3); Osmolality Calculated 287 mOsm/kg (285-295); Sodium 140 mmol/L (136-145)
[2020-05-16 20:40] LABS: NT Pro B Type Natriuretic Pept 121 pg/mL (0-125); Thyroid Stimulating Hormone 0.37 uIU/mL (0.27-4.20)
[2020-05-16 20:51] LABS: HIV 1 & 2 Antibody Non-Reactive (Non-Reactiv); HIV 1 & 2 Antigen Non-Reactive (Non-Reactiv)
[2020-05-16 22:07] LABS: Hepatitis A Antibody IgM Non-Reactive (Nonreactive); Hepatitis B Core IgM Non-Reactive (Nonreactive); Hepatitis B Surface Antigen Non-Reactive (Nonreactive); Hepatitis C Virus Antibody Non-Reactive (Nonreactive)
[2020-05-16 22:23] LABS: Troponin 5 2HR Delta 0 ABS# (0-10)
--- NOTE | 2020-05-16 23:14 | ECG_ITS ---
[facility] Test Date: 2020-05-16 Pat Name: Naida Chowdhury Department: Room: [facility]02 Gender: Female Chicken Vaccinator: : 1985 Requested By: Rc Deleon Order Number: [id number] Lynda MD: Pretty Bliss M.D. Measurements Intervals [place] Rate: 74 P: 34 IN: 143 QRS: 49 QRSD: 89 T: 33 QT: 399 QTc: 445 Interpretive Statements SINUS RHYTHM LOW QRS VOLTAGE IN PRECORDIAL LEADS [QRS DEFLECTION < 1.0 mV IN CHEST LEADS] Compared to ECG 05/16/2020 21:17:27 No significant changes Electronically Signed On 05-17-2020 18:21:17 CDT by Pretty Bliss M.D. [id number]
[2020-05-16] MEDS: ALPRAZolam 0.5 mg Tablet PO (23:20)
[2020-05-17] VITALS (59 sets, daily range): BP systolic 101–116; BP diastolic 44–82; PULSE 59–95; RESP 17–20; TEMP 36.6–37.2; O2SAT 94–100
[2020-05-17 02:16] LABS: Basophils % 0.5 %; Eosinophils # 0.1 10^3/uL (0.0-0.8); Eosinophils % 0.8 %; Hemoglobin 11.9 g/dL (11.5-15.3); Lymphocytes # 1.7 10^3/uL (0.8-4.8); Lymphocytes % 28.4 %; Mean Corpuscular HGB Conc 33.1 g/dL (30.0-36.0); Mean Corpuscular Hemoglobin 28.7 pg (28.0-34.0); Mean Corpuscular Volume 86.7 fL (81-99); Mean Platelet Volume 10.3 fL (7.4-10.4); Monocytes # 0.6 10^3/uL (0.2-0.9); Monocytes % 10.4 %; Neutrophils # 3.57 10^3/uL (1.8-7.7); Neutrophils % 59.6 %; Nucleated Red Blood Cells % 0 %; Platelet Count 215 10^3/cmm (130-400); Red Blood Count 4.15 10^6/uL (4.1-5.3); Red Cell Distribution Width 13.4 % (12.1-15.1)
[2020-05-17 02:33] LABS: Alanine Aminotransferase 21 U/L (0-33); Albumin Level 3.4 g/dL (3.5-5.2); Alkaline Phosphatase 48 IU/L (35-105); Anion Gap 15.4 (5-19); Aspartate Amino Transferase 15 U/L (0-32); Blood Urea Nitrogen 7 mg/dL (6-20); Calcium 8.1 mg/dL (8.5-10.5); Carbon Dioxide 23 mmol/L (22-29); Chloride 105 mmol/L (98-107); Globulin 2.3 g/dL (1.3-4.6); Glomerular Filtration Rate 142.1 mL/min (90-130); Glucose 88 mg/dL (65-115); Magnesium 1.9 mg/dL (1.7-2.3); Osmolality Calculated 287 mOsm/kg (285-295); Phosphorus 3.1 mg/dL (2.5-4.5); Potassium 3.4 mmol/L (3.5-5.1); Sodium 140 mmol/L (136-145); Total Bilirubin 0.4 mg/dL (0.15-1.2); Total Protein 5.7 g/dL (6.6-8.7)
[2020-05-17 02:51] LABS: Troponin 5 6HR Delta 0 ng/L (0-12)
--- NOTE | 2020-05-17 05:10 | PC.NURSE ---
ASSUMING CARE 1900 Patient is resting in bed with 1:1 sitter at bedside. Patient is tearful and is requesting to call her . Per dye house supervisor, patient has right to phone calls. Patient spoke with and was tearful during conversation. Patient appears minimally agitated that she is in the hospital. Patient is alert and oriented x 4 and states that she is feeling as if she wants to use again and needs help.
--- NOTE | 2020-05-17 05:49 | PC.NURSE ---
1:1 SITTER Patient accusing 1:1 sitter of bad attitude and requests that she not come back into her room. supervisor commissary production called and RN sat with patient until 1:1 sitters switched out. Kelly to come sit with patient.
--- NOTE | 2020-05-17 05:50 | PC.NURSE ---
XANAX Patient states that she occasionally takes xanax at home when she feels anxious. Dr. Ball notified of this and gave order for one time 0.5 mg order for xanax. Patient has been asleep and resting since xanax given last night.
--- NOTE | 2020-05-17 05:52 | PC.NURSE ---
SHIFT SUMMARY Patient has been resting well since xanax given. See previous 1:1 sitter note. Patient has tolerated Kelly throughout the night well. Patient expects to see her or mom today during visiting hours. Normal saline with 20 mEq of potassium running throughout the night at 100 mL/hour. 1 void in BSC throughout the night.
[2020-05-17] MEDS: multivitamin therapeutic Tablet 1 TAB PO (08:45)
[2020-05-17] MEDS: potassium chloride ER 20 mEq Tablet 40 MEQ PO (08:45)
[2020-05-17] MEDS: folic acid 1 mg Tablet PO (08:45)
[2020-05-17] MEDS: cyanocobalamin 1,000 mcg Tablet 500 MCG PO (08:45)
[2020-05-17] MEDS: thiamine 100 mg Tablet 50 MG PO (08:46)
[2020-05-17] MEDS: ALPRAZolam 0.25 mg Tablet PO (10:11)
--- NOTE | 2020-05-17 13:15 | PC.NURSE ---
report given and iv site removed whole intact and transfered to npu
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
[2020-05-17] MEDS: hyDROXYzine 25 mg Capsule 50 MG PO (17:45)
--- NOTE | 2020-05-17 17:45 | PC.NURSE ---
PRN VISTARIL Patient requested medication for anxiety. Just got off the phone. Given 50 mg Vistaril PO.
--- NOTE | 2020-05-17 19:49 | PM.NPTHER ---
NPU Therapy Progress Note Therapy Progress Note Date: 05/17/20 Time In: 18:45 Time Out: 19:00 Symptoms Reported: depression Mood: sleepy, depressed, flat affect Progress Note: CATALOG SPECIALIST approached Naida resting on her bed with the lights on. Naida is agreeable to talk. She vents about drug use she says first started after meeting an old friend who was released from [facility]. She says this was not the person who introduced her to meth but she started meth around this same time. She then references being prescribed prescription medication and mostly having some left over after the prescription was out and thought that because of this, she would not struggle with addiction to meth. She describes depression/anxiety issues before drug use but when pressed, did not want to elaborate. She eludes to trauma in her childhood. Naida describes seeing a counselor at [facility] in [place] but that this counselor didn't do nothing for me and just listened while i talked . Naida does admit that she would benefit from inpatient rehab treatment at has paperwork on a facility she is considering. Intervention: CATALOG SPECIALIST listened and attempted to establish rapport. Naida is quick to complain about NPU staff being rude and not speaking with the doctor yet. CATALOG SPECIALIST redirected conversation to her treatment and choices. Naida does not exhibit much insight or seem to understand the gravity of her drug addiction, although she is open to treatment. Reported Goals Before Discharge: speak with the doctor, set up with outpatient rehab tx
[2020-05-17] MEDS: trazodone 50 mg Tablet PO (20:26)
--- NOTE | 2020-05-17 20:26 | PC.NURSE ---
PRN TRAZODONE PATIENT REQUESTING MEDICATION FOR SLEEP; TRAZODONE GIVEN AT THIS TIME. WILL MONITOR FOR EFFECTIVENESS.
--- NOTE | 2020-05-17 21:25 | PC.NURSE ---
PRN FOLLOW UP PATIENT LYING IN BED WITH EYES CLOSED. NO REQUESTS AT THIS TIME.
[2020-05-18 06:00] VITALS: BP 92/50; PULSE 67; RESP 16; TEMP 36.7; O2SAT 100
[2020-05-18] MEDS: cyanocobalamin 1,000 mcg Tablet 500 MCG PO (08:18)
[2020-05-18] MEDS: thiamine 100 mg Tablet 50 MG PO (08:19)
[2020-05-18] MEDS: multivitamin therapeutic Tablet 1 TAB PO (08:19)
[2020-05-18] MEDS: ALPRAZolam 0.25 mg Tablet PO (08:19)
[2020-05-18] MEDS: folic acid 1 mg Tablet PO (08:19)
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
[2020-05-18 10:41] LABS: Basophils % 0.4 %; Eosinophils # 0.1 10^3/uL (0.0-0.8); Eosinophils % 0.8 %; Hematocrit 43.3 % (37.0-47.0); Lymphocytes # 1.7 10^3/uL (0.8-4.8); Lymphocytes % 20.8 %; Mean Corpuscular HGB Conc 32.3 g/dL (30.0-36.0); Mean Corpuscular Hemoglobin 28.5 pg (28.0-34.0); Mean Platelet Volume 10.3 fL (7.4-10.4); Monocytes # 0.6 10^3/uL (0.2-0.9); Monocytes % 6.8 %; Neutrophils # 5.95 10^3/uL (1.8-7.7); Nucleated Red Blood Cells % 0 %; Platelet Count 302 10^3/cmm (130-400); Red Blood Count 4.92 10^6/uL (4.1-5.3); Red Cell Distribution Width 13.5 % (12.1-15.1); White Blood Count 8.4 10^3/uL (4.0-10.0)
[2020-05-18 10:57] LABS: Alanine Aminotransferase 26 U/L (0-33); Albumin Level 4.1 g/dL (3.5-5.2); Alkaline Phosphatase 59 IU/L (35-105); Anion Gap 12.7 (5-19); Aspartate Amino Transferase 16 U/L (0-32); Blood Urea Nitrogen 9 mg/dL (6-20); Calcium 9.1 mg/dL (8.5-10.5); Carbon Dioxide 29 mmol/L (22-29); Chloride 104 mmol/L (98-107); Creatinine Clr Calc Pharmacy 102.5736; Globulin 2.9 g/dL (1.3-4.6); Glomerular Filtration Rate 96.4 mL/min (90-130); Glucose 101 mg/dL (65-115); Magnesium 1.9 mg/dL (1.7-2.3); Osmolality Calculated 293 mOsm/kg (285-295); Potassium 3.7 mmol/L (3.5-5.1); Sodium 142 mmol/L (136-145); Total Bilirubin 0.4 mg/dL (0.15-1.2)
[2020-05-18] MEDS: acetaminophen 325 mg Tablet 650 MG PO (12:14)
[2020-05-18 14:00] VITALS: BP 109/68; PULSE 74; RESP 18; TEMP 36.8; O2SAT 96
[2020-05-18] MEDS: hyDROXYzine 25 mg Capsule 50 MG PO (20:04)
[2020-05-18 20:12] VITALS: BP 96/60; PULSE 83; RESP 17; TEMP 37.1; O2SAT 92
--- NOTE | 2020-05-18 20:27 | PC.NURSE ---
pt came to nurses desk requesting med for anxiety. Vistaril 50mg given.
[2020-05-18] MEDS: trazodone 50 mg Tablet PO (20:56)
--- NOTE | 2020-05-18 20:56 | PC.NURSE ---
Pt came to nurses desk requesting that pill to help you sleep . Trazodone 50mg given.
--- NOTE | 2020-05-18 23:07 | PC.NURSE ---
Pt resting quietly with both eyes closed at this time.
[2020-05-19 06:00] VITALS: BP 85/52; PULSE 66; RESP 17; TEMP 37.1; O2SAT 96
[2020-05-19] MEDS: thiamine 100 mg Tablet 50 MG PO (08:08)
[2020-05-19] MEDS: folic acid 1 mg Tablet PO (08:09)
[2020-05-19] MEDS: multivitamin therapeutic Tablet 1 TAB PO (08:09)
[2020-05-19] MEDS: cyanocobalamin 1,000 mcg Tablet 500 MCG PO (08:09)
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
[2020-05-19 08:54] VITALS: BP 85/52; PULSE 66; RESP 17; TEMP 37.1; O2SAT 96
[2020-05-19 09:22] LABS: Basophils # 0.1 10^3/uL (0.0-0.1); Basophils % 0.7 %; Eosinophils # 0.1 10^3/uL (0.0-0.8); Eosinophils % 1.1 %; Hematocrit 43.3 % (37.0-47.0); Hemoglobin 13.9 g/dL (11.5-15.3); Lymphocytes # 2.2 10^3/uL (0.8-4.8); Lymphocytes % 30.8 %; Mean Corpuscular HGB Conc 32.1 g/dL (30.0-36.0); Mean Corpuscular Volume 87.3 fL (81-99); Mean Platelet Volume 10.7 fL (7.4-10.4); Monocytes # 0.5 10^3/uL (0.2-0.9); Monocytes % 6.2 %; Neutrophils # 4.41 10^3/uL (1.8-7.7); Neutrophils % 60.9 %; Nucleated Red Blood Cells % 0 %; Platelet Count 283 10^3/cmm (130-400); Red Blood Count 4.96 10^6/uL (4.1-5.3); Red Cell Distribution Width 13.4 % (12.1-15.1); White Blood Count 7.2 10^3/uL (4.0-10.0)
[2020-05-19 09:33] LABS: Alanine Aminotransferase 25 U/L (0-33); Albumin Level 4.1 g/dL (3.5-5.2); Alkaline Phosphatase 57 IU/L (35-105); Anion Gap 14.5 (5-19); Aspartate Amino Transferase 22 U/L (0-32); Blood Urea Nitrogen 12 mg/dL (6-20); Calcium 9.5 mg/dL (8.5-10.5); Carbon Dioxide 30 mmol/L (22-29); Chloride 102 mmol/L (98-107); Creatinine Clr Calc Pharmacy 102.5736; Globulin 2.8 g/dL (1.3-4.6); Glomerular Filtration Rate 96.4 mL/min (90-130); Glucose 106 mg/dL (65-115); Osmolality Calculated 296 mOsm/kg (285-295); Phosphorus 3.3 mg/dL (2.5-4.5); Potassium 3.5 mmol/L (3.5-5.1); Sodium 143 mmol/L (136-145); Total Bilirubin 0.3 mg/dL (0.15-1.2); Total Protein 6.9 g/dL (6.6-8.7)
[2020-05-22 06:13] LABS: Amphetamine negative; Barbiturates negative; Benzodiazepines negative; Cocaine Metabolites negative; Delta 9 THC negative; Delta 9 THC Carboxy Acid 31 ng/mL; Marijuana(Tetrahydrocannabino) POSITIVE; Opiates negative; PCP (Phencyclidine) negative
== END 2020-05-19 10:15 | disposition home or self-care (01) | DRG 897 ==
LOC: ER 14:34 → ICU 16:27 → NP 05-17 13:13
PROVIDERS: Admitting Provider Family Medicine; Emergency Provider Physician Assistant; PCP Nurse Practitioner Family; Visit Provider Family Medicine
DX: F15.229 Other stimulant dependence with intoxication, unspecified (principal); R45.851 Suicidal ideations; F12.10 Cannabis abuse, uncomplicated; E87.6 Hypokalemia; R94.31 Abnormal electrocardiogram [ECG] [EKG]; R00.0 Tachycardia, unspecified; F41.9 Anxiety disorder, unspecified; F32.9 Major depressive disorder, single episode, unspecified; K21.9 Gastro-esophageal reflux disease without esophagitis; Z62.810 Personal history of physical and sexual abuse in childhood; Z72.89 Other problems related to lifestyle; Z91.5 Personal history of self-harm; Z90.3 Acquired absence of stomach [part of]; Z81.3 Family history of other psychoactive substance abuse and dependence
CPT/HCPCS: 36415; 70450; 71045; 80048; 80053; 80074; 80306; 80307; 80346; 81001; 82550; 83605; 83735; 83880; 84100; 84443; 84484; 84703; 85025; 87491; 87591; 87661; 87806; 93005; 96365; 96366; 96372; 99285; J1650; J3480; J7030

== ENCOUNTER 2020-09-01 12:26 | Emergency (ER) | payer OTHER, SELFPAY ==
[2020-09-01 12:53] VITALS: BP 137/66; PULSE 120; RESP 18; TEMP 37.2; O2SAT 99
[2020-09-01 12:57] VITALS: BMI 23.9
--- NOTE | 2020-09-01 15:00 | PC.NURSE ---
patient has refused care the entire admission. her is at bedside now and is somewhat confrontational himself. he requests to take her home AMA. form signed and patient released with her .
--- NOTE | 2020-09-01 15:22 | ED_ITS ---
HPI - Psych General: Chief Complaint: Psychiatric Symptoms Stated Complaint: AMS Time Seen by Provider: 09/01/20 12:38 Source: patient and police Mode of arrival: ambulatory Limitations: altered mental status History of Present Illness: MD complaint: altered mental status Duration: intermittent History of same: Yes Relieving factors: none Exacerbating factors: none Details of plan: Patient will not answer my questions she states the world is bad and secrets are deep. Pt will not answer any ROS questions. I did ask patient if she has had thoughts of hurting herself or other and she states no. Review of Systems General: Reports: ROS unobtainable due to mental status ENMT: Denies: uvular edema PFSH ED PFSH: Medical History Anxiety Diagnosed in about 2015 and she used to take alprazolam as needed for this. She states that she currently has a therapist whom she talks to and this helps. She follows with her primary care provider Dr. Farr No pertinent past medical history Denies diabetes, asthma, hypertension, seizures, DVT/PE PMD-Dr. Farr Surgical History History of esophagogastroduodenoscopy (EGD) 06/2019 History of tonsillectomy 06/[address] age of [address] Brito as this was thought to contribute to sleep apnea History of tubal ligation post tubal ligation by Dr. Quiroz at [facility] [place]. 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 wisdom tooth extraction Family History Father Diabetes Family/Other Diabetes maternal aunt Grandmother Diabetes maternal Stroke paternal Grandfather Stroke paternal and maternal Denies family history of Cervical cancer Colon cancer Ovarian cancer DVT (deep venous thrombosis) Heart disease Hyperlipidemia Breast cancer Anesthesia complication Bleeding disorder Pulmonary embolism Hypertension Uterine cancer Thyroid condition Social History Smoking and tobacco status: never smoked Alcohol intake: never Adopted: No Caregiver/support person: Yes Lives independently: Yes Household members: spouse Housing: House service: No Current occupational status: employed Pets and animals: No History of recent travel: No Sexually active: No Special christiano needs: No Additional social history: - Tobacco Use: Denies current or past use Drug Use: Used marijuana a couple of times as a teenager; denies any other drug use Alcohol Use: Denies 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 Female Reproductive History: Date of last menstrual period: 05/09/20 Physical Exam Const: COMMON NORMALS: no acute distress, patient oriented x3, healthy appearing, alert and well nourished GENERAL APPEARANCE: cooperative, comfo rtable, well kempt and well developed; not ill appearing ORIENTATION/CONSCIOUSNESS: Yes awake, Yes oriented to person, Yes oriented to place and Yes oriented to time HENMT: COMMON NORMALS: normocephalic, atraumatic, hearing grossly normal bilaterally, external ears normal, EAC's normal, TM's normal bilaterally, Normal external nose present, Normal nasal mucous membranes and turbinates present and moist oral mucous membranes HEAD & SCALP: normal to inspection, normocephalic and atraumatic FACE & SINUS: normal facial exam, sinuses nontender and face symmetric NOSE: Normal external nose present, Normal nares present, Normal nasal mucous membranes and turbinates present and No nasal discharge present EXTERNAL EAR: Yes external ears normal and Yes mastoids normal EXTERNAL AUDITORY CANAL: EAC's normal TYMPANIC MEMBRANE: TM's normal bilaterally MOUTH: Normal oral and palatal mucosa present, lip normal, tongue normal and Normal salivary glands and ducts present THROAT: posterior oropharynx normal, tonsils normal and uvula midline; no uvular edema Eye: COMMON NORMALS: Equal, round and reactive pupils present, EOMs intact bilaterally, conjunctivae normal and no scleral icterus GENERAL EYE: appearance normal, both eyes and all related structures EYELID: eyelids normal CONJUNCTIVA: Yes conjunctivae normal SCLERA: sclerae normal CORNEA: Yes corneas normal PUPIL: Yes Equal, round and reactive pupils present Neck/C-Spine: COMMON NORMALS: full ROM, no lymphadenopathy, supple, no meningeal signs, no JVD and Thyroid normal GENERAL: Yes normal visual inspection and Yes trachea midline THYROID: Thyroid normal CERVICAL SPINE: Yes cervical ROM normal Lymph: LYMPHATIC: no lymphadenopathy noted and no lymphedema noted Chest: COMMONS NORMALS: normal inspection of the chest and normal palpation of entire chest wall Resp: COMMON NORMALS: normal respiratory effort, No retractions, No use of accessory muscles and clear to auscultation bilaterally EFFORT & INSPECTION: Yes able to speak in complete sentences and Yes symmetric chest movement AUSCULTATION: clear to auscultation bilaterally Cardio: COMMON NORMALS: no JVD, regular rate and regular rhythm RATE: regular rate RHYTHM: regular rhythm GI: COMMON NORMALS: Normal to inspection, nondistended, normoactive bowel sounds present, Soft to palpation, non-tender, No hepatosplenomegaly present, no masses and no bruits INSPECTION: Yes normal to inspection AUSCULTATION: Yes normoactive bowel sounds PALPATION: Yes Soft to palpation and Yes No hepatosplenomegaly present PERCUSSION: normal to percussion RECTAL EXAM: deferred : COMMON NORMALS: Yes no CVA tenderness, Yes normal external appearance, Yes normal appearance of the vagina, Yes normal appearance of the cervix, Yes normal bimanual exam, Yes No adnexal tenderness and Yes no masses BLADDER/KIDNEY EXAM: Yes no CVA tenderness BIMANUAL EXAM - VAGINA & UTERUS: Yes normal bimanual exam Back/Pelvis: COMMON NORMALS: no CVA tenderness, thoracic and lumbar spine nor mal to inspection, no thoracic nor lumbar tenderness and thoraco-lumbar ROM normal THORACIC SPINE/UPPER BACK: Yes normal to inspection LUMBAR SPINE/LOWER BACK: Yes normal to inspection Extremity: COMMON NORMALS: normal to inspection, full ROM and capillary refill normal GENERAL: Yes normal exam except as noted Neuro: COMMON NORMALS: patient oriented x3, CN's II-XII intact bilaterally, moves all extremities, no focal motor deficits, no sensory deficits noted, deep tendon reflexes 2+ bilaterally and gait normal SENSORIUM/ORIENTATION: Yes alert, Yes oriented to person, Yes oriented to place and Yes oriented to time MENINGEAL SIGNS: Yes no meningeal signs CRANIAL NERVES: Yes CN normal except as noted SPEECH: speech normal GAIT: Yes Normal gait present SENSORY EXAM: Yes extremities MOTOR EXAM: 5/5 motor strength present throughout Psych: COMMON NORMALS: cooperative, speech normal, denies hallucinations, denies homicidal ideation and denies suicidal ideation; negative for mental status grossly normal, negative for Normal thought process present, negative for normal affect and negative for activity/motor behavior normal APPEARANCE: Yes grossly normal and Yes well kempt ATTITUDE: Yes calm ACTIVITY/MOTOR BEHAVIOR: Yes appropriate eye contact SPEECH: Yes normal speech THOUGHT PROCESS: abnormal and Flight of ideas present [facility] GHT CONTENT: Yes Normal thought content present ATTENTION/CONCENTRATION: Yes attention grossly intact MEMORY/COGNITION: Yes memory grossly intact INSIGHT: Good insight present (Psych) JUDGEMENT: Good judgement present (Psych) Skin: COMMON NORMALS: no rashes or lesions noted, no wounds, turgor normal, no jaundice, no petechiae and no mottling GENERAL SKIN EXAM: no rashes or lesions noted and turgor normal Course Vital Signs: Vital signs: Vital Signs Temperature 98.9 F 09/01/20 12:53 Pulse Rate 120 H 09/01/20 12:53 Respiratory Rate 18 09/01/20 12:53 Blood Pressure 137/66 09/01/20 12:53 Pulse Oximetry 99 09/01/20 12:53 MDM - Psych MDM Narrative: Medical decision making narrative: Patients showed up per patients request. Pt states she wants to go home and should have never been brought in here. She states she just wanted to talk to police. Pt was again asked if she felt safe going home and she states yes, she does not want to be here. Pt refuses blood work or to give us Urine. Pt states we can not hold her against her will as she has done nothing wrong. Patient left against medical advice. Once patient's arrived she seemed to have an appropriate thought process. At this time I do not feel patient is a threat to herself or others. I do not feel I can keep patient against her will. Pt walked out Discharge Plan Discharge Patient Disposition: Left Against Medical Advice Prescriptions: No Action alprazolam 0.5 mg tablet 0.25 - 0.5 mg PO DAILY PRN (Reason: Anxiety) RF: 0 Vitamin B-12 1,000 mcg Tablet 500 mcg PO DAILY 30 Days Qty: 15 RF: 1 hydroxyzine pamoate 25 mg Capsule 50 mg PO Q6H PRN (Reason: Anxiety) 30 Days Qty: 120 RF: 1 Vitamin B-1 (mononitrate) 100 mg Tablet 50 mg PO DAILY 30 Days Qty: 30 RF: 1 Referrals: Sorenson,FRANCIS Curiel [Primary Care Provider] - Coding Level of Care Code ED Procurement Consultant for Royce De La Vega
== END 2020-09-01 15:03 | disposition left against medical advice (07) ==
PROVIDERS: Emergency Provider Registered Nurse; PCP Nurse Practitioner Family
DX: R41.82 Altered mental status, unspecified (principal); Z53.21 Procedure and treatment not carried out due to patient leaving prior to being seen by health care provider
CPT/HCPCS: 96372; 99283; J2060

== ENCOUNTER 2020-12-30 04:57 | Emergency (ER) | payer OTHER, SELFPAY ==
[2020-12-30 05:04] VITALS: BP 117/48; PULSE 94; RESP 16; TEMP 36.9; O2SAT 100; BMI 21.7
--- NOTE | 2020-12-30 05:20 | W.ED.FEMALGU ---
HPI - Female Genitourinary General: Chief complaint: Urogenital-Female Stated complaint: burining in private area an blisters Time Seen by Provider: 12/30/20 05:11 History of Present Illness: HPI Narrative: 35-year-old female complaining of 3 days of burning with blistering to her vagina. She is experiencing some pelvic pain. She is also having vaginal bleeding and passing clots. She has not had a period in 2 months, says she checked a test that was negative. No other complaints at discharge. MD elicited complaint: vaginal bleeding, pelvic pain and genital rash Pertinent past history: other Onset (ago): day(s) (3) Location of symptoms: external genitalia, suprapubic and vaginal Female Urogenital Radiation: Non-Radiating Quality of pain: burning Consistency: constant Vaginal discharge: none Vaginal bleeding: moderate Urinary symptoms: Dysuria Exacerbating factors: urination and movement Relieving factors: none Associated symptoms: Reports vaginal bleeding; Deny abdominal pain, fevers/chills, nausea or vaginal discharge Treatment prior to arrival: none Sexual activity: Yes Patient : No Possible : at home test negative Date of Last Menstrual Period: 05/09/20 Review of Systems Const: Denies: fever(s) or chills Resp: Denies: non-productive cough GI: Denies: abdominal pain, nausea or vomiting : Reports: dysuria and vaginal bleeding; Denies: vaginal discharge [facility] ED PFSH: Medical History (Updated 12/30/20 @ 06:06 by Anthony Wray DO) Anxiety Diagnosed in about 2015 and she used to take alprazolam as needed for this. She states that she currently has a therapist whom she talks to and this helps. She follows with her primary care provider Dr. Farr No pertinent past medical history Denies diabetes, asthma, hypertension, seizures, DVT/PE PMD-Dr. Farr Surgical History History of esophagogastroduodenoscopy (EGD) 06/2019 History of tonsillectomy 06/2019 at the age of [address] Brito as this was thought to contribute to sleep apnea History of tubal ligation post tubal ligation by Dr. Quiroz at [facility] [place]. 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 wisdom tooth extraction Family History Father Diabetes Family/Other Diabetes maternal aunt Grandmother Diabetes maternal Stroke paternal Grandfather Stroke paternal and maternal Denies family history of Cervical cancer Colon cancer Ovarian cancer DVT (deep venous thrombosis) Heart disease Hyperlipidemia Breast cancer Anesthesia complication Bleeding disorder Pulmonary embolism Hypertension Uterine cancer Thyroid condition Social History Smoking and tobacco status: never smoked Alcohol intake: never Adopted: No Caregiver/support person: Yes Lives independently: Yes Household members: spouse Housing: House service: No Current occupational status: employed Pets and animals: No History of recent travel: No Sexually active: No Special christiano needs: No Additional social history: - Tobacco Use: Denies current or past use Drug Use: Used marijuana a couple of times as a teenager; denies any other drug use Alcohol Use: Denies 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 Female Reproductive History: Date of last menstrual period: 05/09/20 Physical Exam Const: COMMON NORMALS: no acute distress, patient oriented x3 and alert Resp: COMMON NORMALS: normal respiratory effort : EXTERNAL FEMALE EXAM: Yes externally tender and Yes lesion (vesicular lesion) SPECULUM EXAM - VAGINA: Yes vaginal bleeding SPECULUM EXAM - CERVIX: Yes Cervical os closed, Yes Cervical bleeding (scant), No mucoid cervix, No watery cervix and No Abnormal cervical discharge present OB/EXTERNAL & SPECULUM: vaginal bleeding Neuro: COMMON NORMALS: patient oriented x3 SENSORIUM/ORIENTATION: Yes alert Course Vital Signs: Vital signs: Vital Signs Temperature 98.4 F 12/30/20 05:04 Pulse Rate 94 12/30/20 05:04 Respiratory Rate 16 12/30/20 05:04 Blood Pressure 117/48 12/30/20 05:04 Pulse Oximetry 100 12/30/20 05:04 MDM - Female MDM Narrative: Medical decision making narrative: Small vesicular type lesions to the left labia mainly. These are swabbed for herpes culture. Wet prep, GC chlamydia swab, vaginal culture also obtained. She will be covered for GC and chlamydia as well as genital herpes. Will await wet prep to see if coverage for trichomonas is needed. Discharge Plan Discharge Patient Disposition: Home Clinical Impression: Vaginitis Qualifiers: Chronicity: acute Qualified Code(s): N76.0 - Acute vaginitis Condition: Stable Prescriptions: New valacyclovir 1 gram tablet 1,000 mg PO BID 10 Days Qty: 20 RF: 0 No Action alprazolam 0.5 mg tablet 0.25 - 0.5 mg PO DAILY PRN (Reason: Anxiety) RF: 0 Vitamin B-12 1,000 mcg Tablet 500 mcg PO DAILY 30 Days Qty: 15 RF: 1 hydroxyzine pamoate 25 mg Capsule 50 mg PO Q6H PRN (Reason: Anxiety) 30 Days Qty: 120 RF: 1 Vitamin B-1 (mononitrate) 100 mg Tablet 50 mg PO DAILY 30 Days Qty: 30 RF: 1 Discharge Orders: Discharge ED (Routine); Ordered 12/30/20 Ordered By: Anthony Wray Referrals: Veena Sorenson APN [Referring] - 4-7 days Discharge Diet: Usual diet Discharge Activity: Resume usual activity Activity Restrictions/Additional Instructions: You will be contacted if any of your other lab tests turn positive. If they do, partners may need treatment. This can be done at the health department, urgent care, PCP office etc. Coding Level of Care Code ED Floral Specialist for Royce Fwd Exam Expanded Problem Focused
[2020-12-30] MEDS: valACYclovir 1,000 mg Tablet 1000 MG PO (06:09)
[2020-12-30] MEDS: azithromycin 250 mg Tablet 1000 MG PO (06:09)
[2020-12-30 06:15] LABS: HCG Qualitative Urine. Negative (Negative)
[2020-12-30 06:20] VITALS: RESP 18
[2020-12-30 06:23] LABS: Blood Urine 3+ (Negative); Glucose Urine UA Norm (Normal); Ketones Urine 1+ (Negative); Protein Urine 1+ (Negative); Urine Color Yellow (Yellow); pH Urine 8 (5-7)
[2020-12-30 06:24] LABS: Add Urine Microscopic? YES; Bilirubin Urine Neg (Negative); Leukocyte Esterase Urine Negative (Negative); Nitrate Urine Negative (Negative); Sulfosalicylic Acid Urine Positive (Negative); Urobilinogen Urine 1 mg/dL (Negative)
[2020-12-30 06:26] LABS: Add Urine Culture? No; Amorphous Sediment Urine 3+ /hpf; Bacteria Urine 1+ /hpf; Mucus Urine 3+ /hpf; Squamous Epithelial Cell Urine 15-25 /hpf (0-5); WBC Urine 55-80 /hpf (0-5)
== END 2020-12-30 06:21 | disposition home or self-care (01) ==
PROVIDERS: Emergency Provider Emergency Medicine
DX: N76.0 Acute vaginitis (principal)
CPT/HCPCS: 81001; 81025; 87070; 87077; 87186; 87205; 87210; 87252; 87491; 87591; 96372; 99283; J0696; Q0144

== ENCOUNTER 2021-02-17 11:40 | Inpatient (IN) | payer OTHER, SELFPAY ==
[2021-02-17] VITALS (18 sets, daily range): BP systolic 85–130; BP diastolic 57–78; PULSE 94–114; RESP 7–18; TEMP 36.9; O2SAT 88–100; BMI 21.2
--- NOTE | 2021-02-17 11:47 | XR_ITS ---
WS: [id number] Portable AP semiupright chest, 02/17/2021 Clinical Data: ams Comparison: Portable chest, 05/16/2020. Findings: Right upper lobe and right lower lobe pulmonary opacities are present. Left lung is clear. No nodules, masses or effusions are seen. The heart size is normal. Monitor leads are on the chest wa ll. There are clips in the left upper quadrant.. XR/XR chest 1V portable [id number] Impression: 1. Patchy right lung opacities which may represent acute pneumonia. 2. Left lung is clear.
--- NOTE | 2021-02-17 11:47 | CT_ITS ---
WS: [id number] CT HEAD TECHNIQUE: Noncontrast CT of the head obtained from the skullbase to the vertex. CLINICAL INFORMATION: ams COMPARISON: May 16, 2020 DLP: 1011.[address] scans at [facility] use at least one of these dose optimization techniques: automated e xposure control; mA and/or kV adjustment per patient size (includes targeted exams where dose is matc hed to clinical indication); or iterative reconstruction. FINDINGS: No evidence of intracranial hemorrhage or mass effect. Ventricular system and basal cisterns are valdovinos nt. No extra-axial fluid collections. No evidence of mass or mass effect. Normal devi-white differen tiation. Paranasal sinuses and mastoid air cells are well aerated. .Normal visualized soft tissues. CT/CT head wo con* [id number] IMPRESSION: 1. No evidence of intracranial hemorrhage or mass effect. 2. No acute intracranial findings.
--- NOTE | 2021-02-17 11:48 | ECG_ITS ---
[facility] Test Date: 2021-02-17 Pat Name: Naida Chowdhury Department: Room: Gender: Female Jig Builder: : 1985 Requested By: Eb Saez Order Number: [id number] Lynda MD: Pretty Bliss M.D. Measurements Intervals Whittaker Rate: 97 P: 48 NV: 121 QRS: 69 QRSD: 80 T: 45 QT: 361 QTc: 459 Interpretive Statements SINUS RHYTHM MINIMAL ST DEPRESSION [0.025+ mV ST DEPRESSION] Compared to ECG 05/16/2020 23:15:44 ST (T wave) deviation now present Electronically Signed On 02-17-2021 15:23:21 IMPORT/EXPORT FREIGHT FORWARDER by Pretty Bliss M.D. [id number]
[2021-02-17] MEDS: naloxone 0.4 mg/ml SDV IVP (11:59)
[2021-02-17] MEDS: sodium chloride 0.9% 1,000 ML 999 ML IV ×2 (12:00→13:12)
--- NOTE | 2021-02-17 12:36 | W.ED.GENADLT ---
HPI - General Adult General: Chief complaint: Overdose Stated complaint: OVERDOSE Time Seen by Provider: 02/17/21 11:43 History of Present Illness: HPI narrative: CC: AMS HPI: [35]yo patient w/ unknown PMH BIBA for altered mental status. EMS, patient's mother called EMS after finding her daughter to be confused this AM. Patient mother is concerned the patient may have taken Xanax yesterday while at home for [place] a 4pm yesterday. Patient went fishing after taking two tablets of unknown pills and then went to bed early. This morning at 11am, patient was found to be somnolent in bed, blue around the lips and EMS was called. In the ED, the patient is responsive to sternal rub, moving all extremities sluggishly. Pinpoint pupil. Fingerstick per rescue of 120. Per rescue, patient also has a hx of polysbustance use. Onset: 1 day ago Duration: ongoing, unclear duration Location: car Severity: severe Review of Systems Narrative: REVIEW OF SYSTEMS unable to obtain due to current cognitive status PFS ED PFSH: Medical History (Updated 02/18/21 @ 12:17 by Dennis Rosario MD) Anxiety Diagnosed in about 2015 and she used to take alprazolam as needed for this. She states that she currently has a therapist whom she talks to and this helps. She follows with her primary care provider Dr. Farr Depression GERD (gastroesophageal reflux disease) Methamphetamine abuse No pertinent past medical history Denies diabetes, asthma, hypertension, seizures, DVT/PE PMD-Dr. Farr Surgical History (Updated 02/17/21 @ 16:55 by Dennis Rosario MD) History of esophagogastroduodenoscopy (EGD) 06/2019 History of tonsillectomy 06/2019 at the age of [address] Brito as this was thought to contribute to sleep apnea History of tubal ligation [place] [facility] 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 S/P wisdom tooth extraction Family History Father Diabetes Family/Other Diabetes maternal aunt Grandmother Diabetes maternal Stroke paternal Grandfather Stroke paternal and maternal Denies family history of Cervical cancer Colon cancer Ovarian cancer DVT (deep venous thrombosis) Heart disease Hyperlipidemia Breast cancer Anesthesia complication Bleeding disorder Pulmonary embolism Hypertension Uterine cancer Thyroid condition Social History Smoking and tobacco status: never smoked Alcohol intake: never Adopted: No Caregiver/support person: Yes Lives independently: Yes Household members: spouse Housing: House service: No Current occupational status: employed Pets and animals: No History of recent travel: No Sexually active: No Special christiano needs: No Additional social history: - Tobacco Use: Denies current or past use Drug Use: Used marijuana a couple of times as a teenager; denies any other drug use Alcohol Use: Denies 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 Female Reproductive History: Date of last menstrual period: 05/09/20 Physical Exam Narrative: EXAM NARRATIVE: Head: Atraumatic Eyes: PERRL, conjunctiva without injection, +pinpoint pupils ENT: Mucous membrane moist NECK: Supple without lymphadenopathy LUNGS: LCTAB CV: RRR ABDOMEN: Soft, nontender EXTREMITY: Normal ROM SKIN: Indurated plaques on the R lateral leg and groin, no signs of crepitus/petchaea/bulla, no visible excoriations of the plaques NEURO: Somnolent but arousable, moving all extremities, GCS of 12 PSYCH: Somnolent unable to fully assess at this time Course Vital Signs: Vital signs: Vital Signs Temperature 97.9 F 02/22/21 21:08 Pulse Rate 96 02/22/21 21:08 Respiratory Rate 16 02/22/21 21:08 Blood Pressure 134/80 02/22/21 21:08 Pulse Oximetry 100 02/22/21 21:08 MDM - General Adult MDM Narrative: Medical decision making narrative: [35]yo patient w/ hx of polyusbatance use BIBA for AMS, unclear last seen normal, presumed 1 day ago. Airway maintained. No signs of trauma including bruises, hematoma, lacerations, or basilar skull fracture. NO increased work of breathing or tachypnea on presentation, no suspicion for toxic alcohol vs ASA overdose vs DKA. DDx broad including intracranial injuries, metabolic phenomenon, substance intoxication/withdrawal, and sepsis. Toxidrome Findings: Negative. No rigidity or clonus of LE ankle/knee reflexes, no diaphoresis, pupils mid-ranged equal and reactive to light, no signs of track rea/body patches, normal bowel sounds, and bladder non-palpable/ non-distended. EKG: EKG: Normal Sinus Rhythm. No overt ischemic findings and no prolongation of QTc or QRS intervals. Mildly peaked T waves, no QRS widening or FL prolongation) Workup: CBC, CMP, acetaminophen level, salicylate level, VBG, CK, UA, ECG, UA/UDS, CT brain, XR Chest Intervention: narcan 0.4mg, 2L of NS Found to have a potassium of 7.3, creatinine of 2.2, CPK of over 29K. S/p 2L of NS and 2L of LR. Dr. Nicholson from telenephrology is following Repeat K of 5.5 currently. Aspiration PNA seen on XR chest. S/p ceftriaxone and azithromycin. On CT abd/pelvis, patient was found to have a retained contraceptive device. Will attempt to remove the object. I attempted to remove it under the supervision of Charles ZURITA but was unsuccessful. Case was discussed with Dr. Todd who agrees helping removal of foreign object. It was also discussed with Dr. Gresham given family is concerned that this may be intentional overdose patient has an underlying history of depression and bipolar disorder. Dr. Arenas will reassess patient once patient is more awake. Per request of family, patient is currently under 96-hour hold. Disposition: ICU Lab Data: Labs: Lab Results 02/17/21 02/17/21 02/17/21 12:54 12:54 12:54 WBC 19.1 10^3/uL H 10 ^3/uL (4.0-10.0) RBC 4.93 10^6/uL 10^6 /uL (4.1-5.3) Hgb 14.1 g/dL g/dL (11.5-15.3) Hct 44.8 % % (37.0-47.0) MCV 90.9 fl fl (81-99) MCH 28.6 pg pg (28.0-34.0) MCHC 31.5 g/dL g/dL (30.0-36.0) RDW 14.2 % % (12.1-15.1) Plt Count 330 10^3/cmm 10^3 /cmm (130-400) MPV 9.2 fL fL (7.4-10.4) Neut % (Auto) 89.2 % % Lymph % (Auto) 3.4 % % [place] % (Auto) 6.9 % % Eos % (Auto) 0.0 % % Baso % (Auto) 0.1 % % Neut # (Auto) 16.99 10^3/uL H 1 0^3/uL (1.8-7.7) Lymph # (Auto) 0.7 10^3/uL L 10^ 3/uL (0.8-4.8) [place] # (Auto) 1.3 10^3/uL H 10^ 3/uL (0.2-0.9) Eos # (Auto) 0.0 10^3/uL 10^3/ uL (0.0-0.8) Baso # (Auto) 0.0 10^3/uL 10^3/ uL (0.0-0.1) Nucleated RBC % (a uto) 0 % % Nucleated RBCs # 0.0 /100WBC /100W BC D-Dimer Specimen Type Sample Site ABG pH ABG pCO2 ABG pO2 ABG HCO3 ABG O2 Saturation ABG Base Excess Fermin Test A-a O2 Gradient Hematocrit Hgb O2 Saturation Carboxyhemoglobin Methemoglobin Total Hemoglobin Ionized Calcium O2 Delivery Device O2 Liters/Min FiO2 Advisory Application Developer ID Sodium 139 mmol/L mmol/L (136-145) Potassium 7.3 mmol/L H* mmo l/L (3.5-5.1) Chloride 102 mmol/L mmol/L (98-107) Carbon Dioxide 19 mmol/L L mmol/ L (22-29) Anion Gap 25.3 H (5-19) BUN 30 mg/dL H mg/dL (6-20) Creatinine 2.3 mg/dL H mg/dL (0.5-0.9) GFR Calculation 24.3 mL/min L mL/ min (90-130) Glucose 88 mg/dL mg/dL (65-115) Serum Osmolality Calculated Osmolal ity 294 mOsm/kg mOsm/ kg (285-295) Lactic Acid Calcium 7.2 mg/dL L mg/dL (8.5-10.5) Iron TIBC % Saturation Unsat Iron Binding Total Bilirubin 0.4 mg/dL mg/dL (0.15-1.2) AST 439 U/L H U/L (0-32) ALT 260 U/L H U/L (0-33) Alkaline Phosphata se 63 IU/L IU/L (35-105) Creatine Kinase 91366 U/L H* U/L (26-192) Troponin T Baselin e 163 ng/L H* ng/L (0-10) Troponin T 120 Min [place] Troponin T Total Protein 6.4 g/dL L g/dL (6.6-8.7) Albumin 3.7 g/dL g/dL (3.5-5.2) Globulin 2.7 g/dL g/dL (1.3-4.6) Lipase 99 U/L H U/L (13-60) Procalcitonin TSH HCG, Qual Urine Color Urine Appearance Urine pH Ur Specific Gravit y Urine Protein Urine Glucose (UA) Urine Ketones Urine Blood Urine Nitrate Urine Bilirubin Urine Urobilinogen Ur Leukocyte Ofelia ase Urine RBC Urine WBC Ur Squamous Epith Cells Amorphous Sediment Urine Bacteria Ur Random Sodium Ur Random Potassiu m Ur Random Chloride Urine Creatinine Salicylates < 0.3 mg/dL L mg/ dL (3-10) Urine Opiates Scre en Acetaminophen < 5.0 ug/mL L ug/ mL (10-30) Ur Barbiturates Sc reen Ur Phencyclidine S crn Ur Amphetamines Sc reen U Benzodiazepines Scrn Urine Cocaine Scre en U Marijuana (THC) Screen Ethyl Alcohol < 10 mg/dL mg/dL (0-10) Bact Vaginosis (PC R) 02/17/21 02/17/21 02/17/21 12:54 13:14 13:14 WBC RBC Hgb Hct MCV MCH MCHC RDW Plt Count MPV Neut % (Auto) Lymph % (Auto) [place] % (Auto) Eos % (Auto) Baso % (Auto) Neut # (Auto) Lymph # (Auto) [place] # (Auto) Eos # (Auto) Baso # (Auto) Nucleated RBC % (a uto) Nucleated RBCs # D-Dimer Specimen Type Sample Site ABG pH ABG pCO2 ABG pO2 ABG HCO3 ABG O2 Saturation ABG Base Excess Ferm[place] Test A-a O2 Gradient Hematocrit Hgb O2 Saturation Carboxyhemoglobin Methemoglobin Total Hemoglobin Ionized Calcium O2 Delivery Device O2 Liters/Min FiO2 Advisory Application Developer ID Sodium Potassium Chloride Carbon Dioxide Anion Gap BUN Creatinine GFR Calculation Glucose Serum Osmolality 302 mOsm/kg mOsm/ kg (278-305) Calculated Osmolal ity Lactic Acid 3.5 mmol/L H mmol /L (0.5-2.2) Calcium Iron TIBC % Saturation Unsat Iron Binding Total Bilirubin AST ALT Alkaline Phosphata se Creatine Kinase Troponin T Baselin e Troponin T 120 Min [place] Troponin T Total Protein Albumin Globulin Lipase Procalcitonin TSH HCG, Qual Negative (Negative) Urine Color Urine Appearance Urine pH Ur Specific Gravit y Urine Protein Urine Glucose (UA) Urine Ketones Urine Blood Urine Nitrate Urine Bilirubin Urine Urobilinogen Ur Leukocyte Ofelia ase Urine RBC Urine WBC Ur Squamous Epith Cells Amorphous Sediment Urine Bacteria Ur Random Sodium Ur Random Potassiu m Ur Random Chloride Urine Creatinine Salicylates Urine Opiates Scre en Acetaminophen Ur Barbiturates Sc reen Ur Phencyclidine S crn Ur Amphetamines Sc reen U Benzodiazepines Scrn Urine Cocaine Scre en U Marijuana (THC) Screen Ethyl Alcohol Bact Vaginosis (PC R) 02/17/21 02/17/21 02/17/21 13:49 13:49 13:49 WBC RBC Hgb Hct MCV MCH MCHC RDW Plt Count MPV Neut % (Auto) Lymph % (Auto) [place] % (Auto) Eos % (Auto) Baso % (Auto) Neut # (Auto) Lymph # (Auto) [place] # (Auto) Eos # (Auto) Baso # (Auto) Nucleated RBC % (a uto) Nucleated RBCs # D-Dimer Specimen Type Sample Site ABG pH ABG pCO2 ABG pO2 ABG HCO3 ABG O2 Saturation ABG Base Excess Ferm[place] Test A-a O2 Gradient Hematocrit Hgb O2 Saturation Carboxyhemoglobin Methemoglobin Total Hemoglobin Ionized Calcium O2 Delivery Device O2 Liters/Min FiO2 Advisory Application Developer ID Sodium Potassium Chloride Carbon Dioxide Anion Gap BUN Creatinine GFR Calculation Glucose Serum Osmolality Calculated Osmolal ity Lactic Acid Calcium Iron TIBC % Saturation Unsat Iron Binding Total Bilirubin AST ALT Alkaline Phosphata se Creatine Kinase Troponin T Baselin e Troponin T 120 Min [place] Troponin T Total Protein Albumin Globulin Lipase Procalcitonin TSH HCG, Qual Urine Color Brown (Yellow) Urine Appearance Cloudy (CLEAR) Urine pH 5 (5-7) Ur Specific Gravit y 1.030 (1.005-1.030) Urine Protein 1+ H (Negative) Urine Glucose (UA) 2+ H (Normal) Urine Ketones 1+ H (Negative) Urine Blood 3+ H (Negative) Urine Nitrate Negative (Negative) Urine Bilirubin 1+ H (Negative) Urine Urobilinogen 1 mg/dL H mg/dL (Negative) Ur Leukocyte Ofelia ase 2+ H (Negative) Urine RBC 0-4 /hpf H /hpf (0-2) Urine WBC 25-40 /hpf H /hpf (0-5) Ur Squamous Epith Cells 5-10 /hpf H /hpf (0-5) Amorphous Sediment Not Reportable Urine Bacteria 2+ /hpf H /hpf (NONE) Ur Random Sodium 35 mmol/L mmol/L Cancelled Ur Random Potassiu m 67 mmol/L mmol/L Ur Random Chloride 29 mmol/L mmol/L Urine Creatinine 163 mg/dL mg/dL (28-217) Salicylates Urine Opiates Scre en Negative ng/mL ng /mL (Negative) Acetaminophen Ur Barbiturates Sc reen Negative ng/mL ng /mL (Negative) Ur Phencyclidine S crn Negative ng/mL ng /mL (Negative) Ur Amphetamines Sc reen Positive ng/mL H ng/mL (Negative) U Benzodiazepines Scrn Positive ng/mL H ng/mL (Negative) Urine Cocaine Scre en Negative ng/mL ng /mL (Negative) U Marijuana (THC) Screen Positive ng/mL H ng/mL (Negative) Ethyl Alcohol Bact Vaginosis (PC R) 02/17/21 02/17/21 02/17/21 14:38 14:38 14:38 WBC RBC Hgb Hct MCV MCH MCHC RDW Plt Count MPV Neut % (Auto) Lymph % (Auto) [place] % (Auto) Eos % (Auto) Baso % (Auto) Neut # (Auto) Lymph # (Auto) [place] # (Auto) Eos # (Auto) Baso # (Auto) Nucleated RBC % (a uto) Nucleated RBCs # D-Dimer Specimen Type Sample Site ABG pH ABG pCO2 ABG pO2 ABG HCO3 ABG O2 Saturation ABG Base Excess Fermin Test A-a O2 Gradient Hematocrit Hgb O2 Saturation Carboxyhemoglobin Methemoglobin Total Hemoglobin Ionized Calcium O2 Delivery Device O2 Liters/Min FiO2 Advisory Application Developer ID Sodium 139 mmol/L mmol/L (136-145) Potassium 5.5 mmol/L H mmol /L (3.5-5.1) Chloride 105 mmol/L mmol/L (98-107) Carbon Dioxide 17 mmol/L L mmol/ L (22-29) Anion Gap 22.5 H (5-19) BUN 30 mg/dL H mg/dL (6-20) Creatinine 2.2 mg/dL H mg/dL (0.5-0.9) GFR Calculation 25.6 mL/min L mL/ min (90-130) Glucose 254 mg/dL H mg/dL (65-115) Serum Osmolality Calculated Osmolal ity 303 mOsm/kg H mOs m/kg (285-295) Lactic Acid Calcium 6.3 mg/dL L mg/dL (8.5-10.5) Iron 11 ug/dL L ug/dL (37-145) TIBC 251 mcg/dl mcg/dl % Saturation 4.3 % L % (20-50) Unsat Iron Binding 240 ug/dL ug/dL (112-347) Total Bilirubin AST ALT Alkaline Phosphata se Creatine Kinase Troponin T Baselin e Troponin T 120 Min [place] 173.4 ng/L H ng/L (0-10) Delta Troponin T 10.4 ABS# H* ABS# (0-10) Total Protein Albumin Globulin Lipase Procalcitonin 1.33 ng/mL H ng/m L (0-0.5) TSH HCG, Qual Urine Color Urine Appearance Urine pH Ur Specific Gravit y Urine Protein Urine Glucose (UA) Urine Ketones Urine Blood Urine Nitrate Urine Bilirubin Urine Urobilinogen Ur Leukocyte Ofelia ase Urine RBC Urine WBC Ur Squamous Epith Cells Amorphous Sediment Urine Bacteria Ur Random Sodium Ur Random Potassiu m Ur Random Chloride Urine Creatinine Salicylates Urine Opiates Scre en Acetaminophen Ur Barbiturates Sc reen Ur Phencyclidine S crn Ur Amphetamines Sc reen U Benzodiazepines Scrn Urine Cocaine Scre en U Marijuana (THC) Screen Ethyl Alcohol Bact Vaginosis (PC R) 02/17/21 02/17/21 02/17/21 14:38 14:57 16:36 WBC RBC Hgb Hct MCV MCH MCHC RDW Plt Count MPV Neut % (Auto) Lymph % (Auto) [place] % (Auto) Eos % (Auto) Baso % (Auto) Neut # (Auto) Lymph # (Auto) [place] # (Auto) Eos # (Auto) Baso # (Auto) Nucleated RBC % (a uto) Nucleated RBCs # D-Dimer 2.04 ug/mIFEU H u g/mIFEU (0-0.59) Specimen Type Arterial Sample Site Radial, left ABG pH 7.23 L (7.35-7.45) ABG pCO2 41.7 mmHg mmHg (35-45) ABG pO2 98.7 mmHg mmHg (80.0-100.0) ABG HCO3 17.5 mmol/L L mmo l/L (22-26) ABG O2 Saturation 96.4 ABG Base Excess -9.7 mmol/L L mmo l/L (-2.0-2.0) Fermin Test Pos A-a O2 Gradient 9.8 mmHg mmHg (5-10) Hematocrit 42.3 % % (37-47) Hgb O2 Saturation 94.9 % L % (95-100) Carboxyhemoglobin 0.4 %THgb %THgb (0.4-20.1) Methemoglobin 1.2 % % (0.4-1.5) Total Hemoglobin 13.8 g/dL g/dL (12-16) Ionized Calcium 1.1 mmol/L mmol/L (1.1-1.4) O2 Delivery Device Nc O2 Liters/Min 3.0 % % FiO2 32.0 % % Advisory Application Developer ID Ed Sodium 139.0 mmol/L mmol /L (131-143) Potassium 5.1 mmol/L H mmol /L (3.5-5.0) Chloride Carbon Dioxide Anion Gap BUN Creatinine GFR Calculation Glucose 212.0 mg/dL H mg/ dL (70-115) Serum Osmolality Calculated Osmolal ity Lactic Acid Calcium Iron TIBC % Saturation Unsat Iron Binding Total Bilirubin AST ALT Alkaline Phosphata se Creatine Kinase Troponin T Baselin e Troponin T 120 Min [place] Troponin T Total Protein Albumin Globulin Lipase Procalcitonin TSH 0.61 uIU/mL uIU/m L (0.27-4.20) HCG, Qual Urine Color Urine Appearance Urine pH Ur Specific Gravit y Urine Protein Urine Glucose (UA) Urine Ketones Urine Blood Urine Nitrate Urine Bilirubin Urine Urobilinogen Ur Leukocyte Ofelia ase Urine RBC Urine WBC Ur Squamous Epith Cells Amorphous Sediment Urine Bacteria Ur Random Sodium Ur Random Potassiu m Ur Random Chloride Urine Creatinine Salicylates Urine Opiates Scre en Acetaminophen Ur Barbiturates Sc reen Ur Phencyclidine S crn Ur Amphetamines Sc reen U Benzodiazepines Scrn Urine Cocaine Scre en U Marijuana (THC) Screen Ethyl Alcohol Bact Vaginosis (PC R) 02/17/21 16:36 WBC RBC Hgb Hct MCV MCH MCHC RDW Plt Count MPV Neut % (Auto) Lymph % (Auto) [place] % (Auto) Eos % (Auto) Baso % (Auto) Neut # (Auto) Lymph # (Auto) [place] # (Auto) Eos # (Auto) Baso # (Auto) Nucleated RBC % (a uto) Nucleated RBCs # D-Dimer Specimen Type Sample Site ABG pH ABG pCO2 ABG pO2 ABG HCO3 ABG O2 Saturation ABG Base Excess Fermin Test A-a O2 Gradient Hematocrit Hgb O2 Saturation Carboxyhemoglobin Methemoglobin Total Hemoglobin Ionized Calcium O2 Delivery Device O2 Liters/Min FiO2 Advisory Application Developer ID Sodium Potassium Chloride Carbon Dioxide Anion Gap BUN Creatinine GFR Calculation Glucose Serum Osmolality Calculated Osmolal ity Lactic Acid Calcium Iron TIBC % Saturation Unsat Iron Binding Total Bilirubin AST ALT Alkaline Phosphata se Creatine Kinase Troponin T Baselin e Troponin T 120 Min [place] Troponin T Total Protein Albumin Globulin Lipase Procalcitonin TSH HCG, Qual Urine Color Urine Appearance Urine pH Ur Specific Gravit y Urine Protein Urine Glucose (UA) Urine Ketones Urine Blood Urine Nitrate Urine Bilirubin Urine Urobilinogen Ur Leukocyte Ofelia ase Urine RBC Urine WBC Ur Squamous Epith Cells Amorphous Sediment Urine Bacteria Ur Random Sodium Ur Random Potassiu m Ur Random Chloride Urine Creatinine Salicylates Urine Opiates Scre en Acetaminophen Ur Barbiturates Sc reen Ur Phencyclidine S crn Ur Amphetamines Sc reen U Benzodiazepines Scrn Urine Cocaine Scre en U Marijuana (THC) Screen Ethyl Alcohol Bact Vaginosis (PC R) Positive A (NEGATIVE) Imaging Data^: Other Imaging: Radiologist's impression: [address] [address] Scan ReportSigned Patient: Lisa Chowdhury #: [id number]: 1985Acct#:[id number]/Sex: 35 / FADM Date: 02/17/21Loc: ERRoom/Bed:Attending Dr: Ordering Provider/Ordering MD: Eb Saez MD Date of Service: 02/17/21 Procedure(s): CT head wo con* [id number] Accession Number(s): [id number] Report Number: [id number] WS: [id number] CT HEAD TECHNIQUE: Noncontrast CT of the head obtained from the skullbase to the vertex. CLINICAL INFORMATION: ams COMPARISON: May 16, 2020 DLP: 1011.[address] scans at [facility] use at least one of these dose optimization techniques: automated exposure control; mA and/or kV adjustment per patient size (includes targeted exams where dose is matched to clinical indication); or iterative reconstruction. FINDINGS: No evidence of intracranial hemorrhage or mass effect. Ventricular system and basal cisterns are patent. No extra-axial fluid collections. No evidence of mass or mass effect. Normal devi-white differentiation. Paranasal sinuses and mastoid air cells are well aerated. .Normal visualized soft tissues. CT/CT head wo con* [id number] IMPRESSION: 1. No evidence of intracranial hemorrhage or mass effect. 2. No acute intracranial findings. Dictated By:Zana Ware MDSigned By:Zana Ware MDSigned Date/Time:02/17/21 1233DD/ 1229 [address] [place], [place] [address]SObn ReportSigned Patient: Lisa Chowdhury #: [id number]: 1985Acct#:[id number]/Sex: 35 / FADM Date: 02/17/21Loc: ERRoom/Bed:Attending Dr: Ordering Provider/Ordering MD: Eb Saez MD Date of Service: 02/17/21 Procedure(s): XR chest 1V portable [id number] Accession Number(s): [id number] Report Number: [id number] WS: [id number] Portable AP semiupright chest, 02/17/2021 Clinical Data: ams Comparison: Portable chest, 05/16/2020. Findings: Right upper lobe and right lower lobe pulmonary opacities are present. Left lung is clear. No nodules, masses or effusions are seen. The heart size is normal. Monitor leads are on the chest wall. There are clips in the left upper quadrant.. XR/XR chest 1V portable [id number] Impression: 1. Patchy right lung opacities which may represent acute pneumonia. 2. Left lung is clear. Dictated By:Veronica Rosales MDSigned By:Veronica Rosales MDSigned Date/Time:02/17/21 1241DD/ [address] [facility] [place], [place] [address]VL Scan ReportSigned Patient: Lisa Chowdhury #: [id number]: 1985Acct#:[id number]/Sex: 35 / FADM Date: 02/17/21Loc: ICURoom/Bed: [id number] Dr: Julio Maldonado MD Ordering Provider/Ordering MD: Eb Saez MD Date of Service: 02/17/21 Procedure(s): CT abdomen pelvis wo con [id number] Accession Number(s): [id number] Report Number: [id number] WS: [email or web address] CT ABDOMEN PELVIS TECHNIQUE: Noncontrast CT of the abdomen and pelvis with coronal and sagittal reformatted images. CLINICAL INFORMATION: Possible meth overdose. Rash on legs. Limited history due to patient condition. COMPARISON: None. DLP: 990.[address] [facility] use at least one of these dose optimization techniques: automated exposure control; mA and/or kV adjustment per patient size (includes targeted exams where dose is matched to clinical indication); or iterative reconstruction. FINDINGS: Patchy micronodular airspace infiltrates within the right middle lobe and right lower lobe. Recommend correlation for aspiration pneumonia. Left lung base is well aerated. Noncontrast liver is normal. Postoperative changes at the GE junction. Noncontrast spleen is normal. Adrenal glands are normal. Normal noncontrast pancreas. Normal noncontrast gallbladder. Urine distended bladder. Normal caliber abdominal aorta. Adrenal glands are normal. No hydronephrosis in either kidney. Small amount of free fluid in the pelvis. Fluid within the endometrial canal. Presumed contraceptive device within the vagina extending to the lower cervix. Recommend clinical correlation. Urine distended bladder. CT/CT abdomen pelvis wo con [id number] IMPRESSION: 1. Nodular patchy infiltrates in the right middle lobe and right lower lobe most likely aspiration pneumonia. 2. Prior postoperative changes GE junction. 3. No hydronephrosis in either kidney. 4. Small amount of free fluid in the cul-de-sac. 5. Presumed vaginal contraceptive device within the vagina extending to the lower cervix. Recommend clinical correlation. 6. Urine distended bladder. Notified Eb Saez MD at 02/17/2021 3:43 PM. Dictated By:Zana Ware MDSigned By:Zana Ware MDSigned Date/Time:02/17/21 1544DD/ 1529 Discharge Plan Discharge Patient Disposition: Home Clinical Impression: Pneumonia, Acute hyperkalemia Altered mental status Qualifiers: Altered mental status type: somnolence Qualified Code(s): R40.0 - Somnolence Rhabdomyolysis Qualifiers: Rhabdomyolysis type: traumatic Encounter type: initial encounter Qualified Code(s): T79.6XXA - Traumatic ischemia of muscle, initial encounter Condition: Stable Discharge Diet: Advance as tolerated Discharge Activity: Resume usual activity Coding Level of Care Code ED Hair Machine Operator for Royce De La Vega
[2021-02-17 13:02] LABS: Basophils % 0.1 %; Hematocrit 44.8 % (37.0-47.0); Hemoglobin 14.1 g/dL (11.5-15.3); Lymphocytes # 0.7 10^3/uL (0.8-4.8); Lymphocytes % 3.4 %; Mean Corpuscular HGB Conc 31.5 g/dL (30.0-36.0); Mean Corpuscular Hemoglobin 28.6 pg (28.0-34.0); Mean Corpuscular Volume 90.9 fl (81-99); Mean Platelet Volume 9.2 fL (7.4-10.4); Monocytes # 1.3 10^3/uL (0.2-0.9); Monocytes % 6.9 %; Neutrophils # 16.99 10^3/uL (1.8-7.7); Neutrophils % 89.2 %; Nucleated Red Blood Cells % 0 %; Platelet Count 330 10^3/cmm (130-400); Red Blood Count 4.93 10^6/uL (4.1-5.3); Red Cell Distribution Width 14.2 % (12.1-15.1); White Blood Count 19.1 10^3/uL (4.0-10.0)
[2021-02-17 13:21] LABS: Alanine Aminotransferase 260 U/L (0-33); Albumin Level 3.7 g/dL (3.5-5.2); Alkaline Phosphatase 63 IU/L (35-105); Anion Gap 25.3 (5-19); Aspartate Amino Transferase 439 U/L (0-32); Blood Urea Nitrogen 30 mg/dL (6-20); Calcium 7.2 mg/dL (8.5-10.5); Carbon Dioxide 19 mmol/L (22-29); Chloride 102 mmol/L (98-107); Globulin 2.7 g/dL (1.3-4.6); Glomerular Filtration Rate 24.3 mL/min (90-130); Glucose 88 mg/dL (65-115); Lipase 99 U/L (13-60); Osmolality Calculated 294 mOsm/kg (285-295); Sodium 139 mmol/L (136-145); Total Bilirubin 0.4 mg/dL (0.15-1.2); Total Protein 6.4 g/dL (6.6-8.7)
[2021-02-17 13:40] LABS: Acetaminophen < 5.0 ug/mL (10-30); Alcohol Level < 10 mg/dL (0-10); Potassium 7.3 mmol/L (3.5-5.1); Salicylate < 0.3 mg/dL (3-10); Troponin(5th) Baseline 163 ng/L (0-10)
--- NOTE | 2021-02-17 13:48 | ECG_ITS ---
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 Measurements Intervals [place] Rate: 103 P: 45 HI: 124 QRS: 59 QRSD: 85 T: 39 QT: 366 QTc: 479 Interpretive Statements SINUS TACHYCARDIA MODERATE ST DEPRESSION [0.05+ mV ST DEPRESSION] Compared to ECG 02/17/2021 12:50:09 Sinus rhythm no longer present ST (T wave) deviation still present Electronically Signed On 02-17-2021 16:50:46 CLIENT PROGRAM MANAGER by Pretty Bliss M.D. [email or web address]
[2021-02-17 14:03] LABS: HCG, Serum Qual Negative (Negative)
--- NOTE | 2021-02-17 14:21 | CT_ITS ---
WS: [id number] CT ABDOMEN PELVIS TECHNIQUE: Noncontrast CT of the abdomen and pelvis with coronal and sagittal reformatted images. CLINICAL INFORMATION: Possible meth overdose. Rash on legs. Limited history due to patient condition . COMPARISON: None. DLP: 990.[address] scans at [facility] use at least one of these dose optimization techniques: automated e xposure control; mA and/or kV adjustment per patient size (includes targeted exams where dose is matc hed to clinical indication); or iterative reconstruction. FINDINGS: Patchy micronodular airspace infiltrates within the right middle lobe and right lower lobe. Recommend correlation for aspiration pneumonia. Left lung base is well aerated. Noncontrast liver is normal. P ostoperative changes at the GE junction. Noncontrast spleen is normal. Adrenal glands are normal. Nor mal noncontrast pancreas. Normal noncontrast gallbladder. Urine distended bladder. Normal caliber abd ominal aorta. Adrenal glands are normal. No hydronephrosis in either kidney. Small amount of free fluid in the pelvis. Fluid within the endometrial canal. Presumed contraceptive device within the vagina extending to the lower cervix. Recommend clinical correlation. Urine distend ed bladder. CT/CT abdomen pelvis wo con [id number] IMPRESSION: 1. Nodular patchy infiltrates in the right middle lobe and right lower lobe mo st likely aspiration pneumonia. 2. Prior postoperative changes GE junction. 3. No hydronephrosis in either kidney. 4. Small amount of free fluid in the cul-de-sac. 5. Presumed vaginal contraceptive device within the vagina extending to the lo wer cervix. Recommend clinical correlation. 6. Urine distended bladder. Notified Eb Saez MD at 02/17/2021 3:43 PM.
[2021-02-17] MEDS: dextrose 50% syringe 50 mL IVP ×3 (14:25→20:49)
[2021-02-17] MEDS: FUROsemide 10 mg/mL SDV 4mL 40 MG IVP (14:26)
[2021-02-17] MEDS: cefTRIAXone 1,000 MG in sodium chloride 0.9% (plus) 50 ML 100 MG IV (14:29)
--- NOTE | 2021-02-17 14:36 | PM.CONSULT ---
Providers/Reason For Consult Consulting Physician/Specialty*: Nephrology Reason for Consult*: Eval for renal failure and rhabdo History of Present Illness History of Present Illness Thank for consultation, today had the pleasure of reviewing this 35-year-old female for evaluation of acute kidney injury and critical hyperkalemia. Unfortunately she is known to take drugs, has had an addiction to methamphetamine now for some time. Yesterday afternoon she took a pill which was apparently Xanax, however, is unclear if she took other agents. She went to her truck at 5:30 in the evening, she laid there until 10:30 this morning when it was discovered that she was barely arousable and so she was brought into the hospital for evaluation. On arrival, initial lab work demonstrated a potassium of 7.3, creatinine of 2.3, bicarb of 19, anion gap 25.3. No known history of acute or chronic kidney disease, had not has had an elevated serum creatinine in the past. So far she has received boluses of IV hydration, temporizing medical therapy. Repeat potassium is currently pending. No issues with hypervolemia. Hemodynamics remained stable, blood pressure 110/75 with a pulse of 103. CPK levels obviously elevated at 29,000. Review of Systems General: Reports: ROS unobtainable due to medical condition and ROS unobtainable due to mental status Meds/Allergies Home Medications and Allergies Home Medications Medication Instructions Recorded Confirmed Last Taken Type Unable to Assess 02/17/21 02/17/21 Unknown History Allergies Allergy/AdvReac Type Severity Reaction Status Date / Time No Known Allergies Allergy Verified 02/17/21 11:41 PFSH Acute PFSH: Medical History (Updated 02/17/21 @ 14:02 by Eb Saez MD) Anxiety Diagnosed in about 2015 and she used to take alprazolam as needed for this. She states that she currently has a therapist whom she talks to and this helps. She follows with her primary care provider Dr. Farr No pertinent past medical history Denies diabetes, asthma, hypertension, seizures, DVT/PE PMD-Dr. Farr Surgical History History of esophagogastroduodenoscopy (EGD) 06/2019 History of tonsillectomy 06/2019 at the age of [address] Brito as this was thought to contribute to sleep apnea History of tubal ligation post tubal ligation by Dr. Quiroz at [facility] [place]. 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 wisdom tooth extraction Family History Father Diabetes Family/Other Diabetes maternal aunt Grandmother Diabetes maternal Stroke paternal Grandfather Stroke paternal and maternal Denies family history of Cervical cancer Colon cancer Ovarian cancer DVT (deep venous thrombosis) Heart disease Hyperlipidemia Breast cancer Anesthesia complication Bleeding disorder Pulmonary embolism Hypertension Uterine cancer Thyroid condition Social History Smoking and tobacco status: never smoked Alcohol intake: never Adopted: No Caregiver/support person: Yes Lives independently: Yes Household members: spouse Housing: House service: No Current occupational status: employed Pets and animals: No History of recent travel: No Sexually active: No Special christiano needs: No Additional social history: - Tobacco Use: Denies current or past use Drug Use: Used marijuana a couple of times as a teenager; denies any other drug use Alcohol Use: Denies 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 Female Reproductive History: Date of last menstrual period: 05/09/20 Vitals/I&O/Wt Last Vital Signs Temp 98.4 F 02/17/21 11:41 Pulse 103 H 02/17/21 13:33 Resp 18 02/17/21 11:41 BP 110/75 02/17/21 13:33 Pulse Ox 97 02/17/21 13:33 02/16/21 02/17/21 02/17/21 22:59 06:59 14:59 Intake Total 1000 / 1000 Balance 1000 / 1000 Weight last 48 hrs Weight 54.431 kg Physical Exam Narrative: EXAM NARRATIVE: Constitutional: Non communicative HEENT: Wet mucosa, no jvp, non icteric Lungs: Bilaterally clear without discernible wheeze, rales in all lung zones CVS: S1 S2, no murmurs Abdo: Soft, BS ok Ext 4: Minimal edema, peripheral perfusion with no cyanosis A&P Additional A&P Information 1. Acute renal failure and rhabdomyolysis She was in her truck, likely in a sedated status and likely in a similar position for roughly 17 hours. CPK 29,000, potassium critically elevated at 7.3, receiving medical therapy. Hemodialysis line to be placed in the event that her potassium should continue to increase Continue aggressive IV hydration Repeat potassium level at 4 PM We will complete the work-up with imaging of the kidneys (CT scan has been booked) Urinalysis, fractional excretion of sodium 2. Chemistry Critical hyperkalemia status post temporizing therapy High anion gap, relatively small decrease in serum bicarb likely secondary to combination of anion gap metabolic acidosis as well as intravascular volume depletion. Will check osmolar gap, although from witness clinical history, no evidence of taking volatile agents. As mentioned we will repeat potassium level 4 PM 3. Long-term drug use Mother came to get her into rehab after she is medically treated and stabilized. Rafael Persaud MD Nephrology [phone] Patient seen and examined via telemedicine, with the assistance of the bedside RN > 25 min spent in evaluation and mgmt of patient Coding Level of Care Code Acute Air Cargo Ground Crew Supervisor for Royce De La Vega
[2021-02-17] MEDS: terbutaline 1 mg/mL INJ 0.25 MG SUBCUT (14:48)
[2021-02-17] MEDS: insulin regular-human 100 units/1 mL 10 UNIT IVP (15:03)
[2021-02-17 15:07] LABS: ABG PCO2 41.7 mmHg (35-45); ABG PH Result 7.23 (7.35-7.45); Alveolar-Arterial Oxygen Gradi 9.8 mmHg (5-10); Arterial Blood Gas Hematocrit 42.3 % (37-47); Base Excess ABG -9.7 mmol/L (-2.0-2.0); Blood Gas Allen Test Pos; Blood Gas Operator Identificat ED; Blood Gas Sample Site Radial, left; Blood Gas Sample Type Arterial; Carboxyhemoglobin 0.4 %THgb (0.4-20.1); HCO3 ABG 17.5 mmol/L (22-26); HGB O2 Sat 94.9 % (95-100); Ionized Calcium Level - ABG 1.1 mmol/L (1.1-1.4); Methemoglobin 1.2 % (0.4-1.5); Oxygen Device NC; Oxygen Saturation ABG 96.4; PO2 ABG 98.7 mmHg (80.0-100.0); Potassium Level - ABG 5.1 mmol/L (3.5-5.0); Total Hemoglobin 13.8 g/dL (12-16)
[2021-02-17 15:20] LABS: Anion Gap 22.5 (5-19); Blood Urea Nitrogen 30 mg/dL (6-20); Calcium 6.3 mg/dL (8.5-10.5); Carbon Dioxide 17 mmol/L (22-29); Chloride 105 mmol/L (98-107); Glomerular Filtration Rate 25.6 mL/min (90-130); Glucose 254 mg/dL (65-115); Osmolality Calculated 303 mOsm/kg (285-295); Potassium 5.5 mmol/L (3.5-5.1); Sodium 139 mmol/L (136-145)
[2021-02-17 15:46] LABS: Troponin 5 2HR 173.4 ng/L (0-10); Troponin 5 2HR Delta 10.4 ABS# (0-10)
[2021-02-17 15:58] LABS: Iron 11 ug/dL (37-145); Percent Saturation 4.3 % (20-50); Total Iron Binding Capacity 251 mcg/dl; Unsaturated Iron Binding 240 ug/dL (112-347)
[2021-02-17 16:05] LABS: Procalcitonin 1.33 ng/mL (0-0.5)
[2021-02-17 16:17] LABS: Glucose Urine UA 2+ (Normal); Protein Urine 1+ (Negative); Urine Appearance Cloudy (CLEAR); Urine Color Brown (Yellow); pH Urine 5 (5-7)
[2021-02-17 16:18] LABS: Add Urine Culture? Yes; Add Urine Microscopic? YES; Amphetamines Screen Urine Positive (Negative); Bacteria Urine 2+ /hpf; Barbiturates Screen Urine Negative (Negative); Benzodiazepines Screen Urine Positive (Negative); Bilirubin Urine 1+ (Negative); Blood Urine 3+ (Negative); Cocaine Screen Urine Negative (Negative); Ketones Urine 1+ (Negative); Leukocyte Esterase Urine 2+ (Negative); Nitrate Urine Negative (Negative); Opiate Screen Urine Negative (Negative); PCP Screen Urine Negative (Negative); RBC Urine 0-4 /hpf (0-2); THC Screen Urine Positive (Negative); Urobilinogen Urine 1 mg/dL (Negative); WBC Urine 25-40 /hpf (0-5)
[2021-02-17 16:24] LABS: Creatinine Urine, Random 163 mg/dL (28-217)
[2021-02-17 16:31] LABS: Potassium, Radom Urine 67 mmol/L; Urine Random Sodium 35 mmol/L
[2021-02-17 16:32] LABS: Urine Random Chloride 29 mmol/L
--- NOTE | 2021-02-17 16:48 | P.CONIM_ITS ---
Providers/Reason For Consult Consulting Physician/Specialty*: ELECTROPLATING LABORER Reason for Consult*: vaginal foreign body Attending Physician: Julio Maldonado MD History of Present Illness History of Present Illness Naida Chowdhury is a 35 year old female who was being admitted for an overdose of unknown medication. she had a CT scan performed and it showed a foreign body in the vagina. The ER physician was unable to visualize anything in the vagina due to patient being uncooperative. He asked for me to consult to get a good look and take a culture. Review of Systems General: Reports: 10 or more systems reviewed and unremarkable except in HPI and below Meds/Allergies Home Medications and Allergies Home Medications Medication Instructions Recorded Confirmed Last Taken Type Unable to Assess 02/17/21 02/17/21 Unknown History Allergies Allergy/AdvReac Type Severity Reaction Status Date / Time No Known Allergies Allergy Verified 02/17/21 11:41 PFSH Acute PFSH: Medical History (Updated 02/17/21 @ 17:10 by Patrica Coyne MD) Anxiety Diagnosed in about 2015 and she used to take alprazolam as needed for this. She states that she currently has a therapist whom she talks to and this help s. She follows with her primary care provider Dr. Farr Depression GERD (gastroesophageal reflux disease) Methamphetamine abuse No pertinent past medical history Denies diabetes, asthma, hypertension, seizures, DVT/PE PMD-Dr. Farr Surgical History (Updated 02/17/21 @ 16:55 by Dennis Rosario MD) History of esophagogastroduodenoscopy (EGD) 06/2019 History of tonsillectomy 06/2019 at the age of [address] Brito as this was thought to contribute to sleep apnea History of tubal ligation post tubal [place]. Quiroz [place] [facility] [place] 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 S/P wisdom tooth extraction Family History Father Diabetes Family/Other Diabetes maternal aunt Grandmother Diabetes maternal Stroke paternal Grandfather Stroke paternal and maternal Denies family history of Cervical cancer Colon cancer Ovarian cancer DVT (deep venous thrombosis) Heart disease Hyperlipidemia Breast cancer Anesthesia complication Bleeding disorder Pulmonary embolism Hypertension Uterine cancer Thyroid condition Social History Smoking and tobacco status: never smoked Alcohol intake: never Adopted: No Caregiver/support person: Yes Lives independently: Yes Household members: spouse Housing: House service: No Current occupational status: employed Pets and animals: No History of recent travel: No Sexually active: No Special christiano needs: No Additional social history: - Tobacco Use: Denies current or past use Drug Use: Used marijuana a couple of times as a teenager; denies any other drug use Alcohol Use: Denies 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 She has a kauffman catheter placed that has jane blood in it. She is on many monitors. Const: COMMON NORMALS: average body habitus EXAM LIMITATIONS: altered mental status GENERAL APPEARANCE: appears older than stated age ORIENTATION/CONSCIOUSNESS: Yes confused and Yes patient obtunded; not awake, not oriented to person, not oriented to place and not oriented to time GI: COMMON NORMALS: Soft to palpation and non-tender PALPATION: Yes Soft to palpation : COMMON NORMALS: Yes normal external appearance, Yes normal appearance of the vagina and Yes normal appearance of the cervix SPECULUM EXAM - VAGINA: Yes vaginal bleeding (culture taken) Amount: small/minimal and Yes other (kauffman bulb in vagina. kauffman replaced under sterile technique.) OB/EXTERNAL & SPECULUM: vaginal bleeding (culture taken) Neuro: SENSORIUM/ORIENTATION: No oriented to person, No oriented to place and No oriented to time Data Micro: Micro: Microbiology 02/17/21 13:49 Legionella Urinary Antigen - Final Unknown Source 02/17/21 14:38 Blood Culture - Pr eliminary Blood SPECIMEN [facility] RAJNI 02/17/21 14:38 Blood Culture - Pr eliminary Blood SPECIMEN [facility] A&P Assessment and plan (1) Vaginal foreign body: kauffman bulb placed in vagina prior to CT scan. New kauffman catheter placed in bladder. Urine output is concentrated, but no blood vaginal exam shows no other masses. vaginal culture taken per request of ER physician Status: Acute Coding Level of Care Code Acute Healthcare Receptionist for Felixg Fwd Diagnoses Vaginal foreign body T19.2XXA
--- NOTE | 2021-02-17 16:54 | P.HP_ITS ---
Providers/Chief Complaint Admitting Physician: Julio Maldonado MD Chief Complaint: OVERDOSE History of Present Illness History taken through microembolization with ER physician and with mother at bedside. Naida Chowdhury is a 35 year old female with past medical history of depression, anxiety, gastric sleeve, GERD, methamphetamine abuse who was last admitted to the hospital in April 2020 was brought into the ER via EMS after mother found her confused. As per the mother patient started to hurt that she was given some 2 tablets by her friends and was told it was Xanax though when patient met with her mother she stated quite possible it was something different. Mother called EMS because patient was behaving. As per the EMS patient was found somnolent in bed with possible blue around the lips. In the ER patient has been saturating more than 95% on room air with heart rate in 114 normal blood pressure. Initial blood work in the ER showed a ferritin of 19,000, hemoglobin of 14, ABG showing a pH of 7.23, PCO2 of 41, PO2 of 98, chemistry showing sodium of 139, potassium of 7.3, creatinine of 2.3, BUN of 30, AST/ALT of 439/260, creatinine kinase of 29,000, lipase of 99. Patient was given 2 L of normal saline and 40 requisition was placed. I have requested for a CT abdomen pelvis which was read as a possibility of infected contraception intrauterine. TATTOO DESIGNER was consulted who after thorough examination found Castaneda bulb was placed in vagina prior to CT scan and new Castaneda catheter was placed. On exam examination no masses were found. Repeat BMP showed potassium of 5.5 with creatinine of 2.2. On examination patient was confused, sleeping but wakes up on verbal cue, not oriented to place for years but oriented to self with mother at bedside. Review of Systems General: Reports: ROS unobtainable due to mental status Medications/Allergies Home Medications Medication Instructions Recorded Confirmed Last Taken Type Unable to Assess 02/17/21 02/17/21 Unknown History Allergies Allergy/AdvReac Type Severity Reaction Status Date / Time No Known Allergies Allergy Verified 02/17/21 11:41 PFSH Acute PFSH: Medical History (Updated 02/17/21 @ 22:44 by Dennis Rosario MD) Anxiety Diagnosed in about 2015 and she used to take alprazolam as needed for this. She states that she currently has a therapist whom she talks to and this helps. She follows with her primary care provider Dr. Farr Depression GERD (gastroesophageal reflux disease) Methamphetamine abuse No pertinent past medical history Denies diabetes, asthma, hypertension, seizures, DVT/PE PMD-Dr. Farr Surgical History (Updated 02/17/21 @ 16:55 by Dennis Rosario MD) History of esophagogastroduodenoscopy (EGD) 06/2019 History of tonsillectomy 06/[address] at the age of [address] Brito as this was thought to contribute to sleep apnea [place] of [place]al [place] [facility] 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 S/P wisdom tooth extraction Family History Father Diabetes Family/Other Diabetes maternal aunt Grandmother Diabetes maternal Stroke paternal Grandfather Stroke paternal and maternal Denies family history of Cervical cancer Colon cancer Ovarian cancer DVT (deep venous thrombosis) Heart disease Hyperlipidemia Breast cancer Anesthesia complication Bleeding disorder Pulmonary embolism Hypertension Uterine cancer Thyroid condition Social History Smoking and tobacco status: never smoked Alcohol intake: never Adopted: No Caregiver/support person: Yes Lives independently: Yes Household members: spouse Housing: House service: No Current occupational status: employed Pets and animals: No History of recent travel: No Sexually active: No Special christiano needs: No Additional social history: - Tobacco Use: Denies current or past use Drug Use: Used marijuana a couple of times as a teenager; denies any other drug use Alcohol Use: Denies 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 Female Reproductive History: Date of last menstrual period: 05/09/20 Vitals/I&O/Wt Last Vital Signs Temp 98.4 F 02/17/21 11:41 Pulse 114 H 02/17/21 15:38 Resp 18 02/17/21 11:41 BP 117/77 02/17/21 15:38 Pulse Ox 97 02/17/21 15:38 02/17/21 02/17/21 02/17/21 06:59 14:59 22:59 Intake Total 1000 / 1000 50 / 1050 Balance 1000 / 1000 50 / 1050 Weight last 48 hrs Weight 54.431 kg Physical Exam Const: COMMON NORMALS: no acute distress and average body habitus; negative for patient oriented x3 and negative for alert EXAM LIMITATIONS: altered mental status GENERAL APPEARANCE: ill appearing ORIENTATION/CONSCIOUSNESS: Yes confused and Yes lethargic Eye: COMMON NORMALS: Equal, round and reactive pupils present and EOMs intact bilaterally PUPIL: Yes Pupil accommodation reflex normal and Yes Pinpoint pupils Chest: COMMONS NORMALS: normal inspection of the chest Resp: COMMON NORMALS: normal respiratory effort AUSCULTATION: crackles (Lower and middle zone) Laterality: right Cardio: COMMON NORMALS: no JVD, regular rate and regular rhythm RATE: tachycardic GI: COMMON NORMALS: Normal to inspection, nondistended, normoactive bowel sounds present and Soft to palpation Data : 02/17/21 12:54 02/17/21 20:54 Micro: Microbiology 02/17/21 13:49 Legionella Urinary Antigen - Final Unknown Source 02/17/21 14:38 Blood Culture - Preliminary Blood SPECIMEN COLLECTED 02/17/21 14:38 Blood Culture - Preliminary Blood SPECIMEN COLLECTED A&P Assessment and plan (1) Altered mental status: Status: Acute (2) Overdose: Status: Acute (3) Methamphetamine abuse: Status: Acute (4) Sepsis: Status: Acute (5) Pneumonia: Status: Acute (6) Rhabdomyolysis: Status: Acute (7) JINNY (acute kidney injury): Status: Acute (8) Transaminitis: Status: Acute (9) Acute hyperkalemia: Status: Acute (10) Vaginal foreign body: Status: Acute (11) Metabolic acidosis: Status: Acute (12) Anxiety: Status: Acute (13) Depression: Status: Acute Additional A&P Information Altered mental status: Most likely secondary to overdose of unknown subjective. Has a history of meth abuse. Can be secondary to metabolic encephalopathy due to acute kidney injury and hyperkalemia versus secondary to sepsis. Check urine drug screen, alcohol level, tylenol and salicylate level, beta-hCG to rule out , blood culture, UA, urine culture, MRSA swab, Covid PCR. Psychiatry has been consulted from the ER. Sitter at bedside. 96-hour hold as requested by family at bedside. Patient paperwork filled in by ER. Normal saline 125 cc/h. Sepsis: Criteria met through tachycardia, altered mental status, leukocytosis. Check MRSA PCR, blood culture, UA, urine culture. COVID-19 PCR. Start on Zosyn for possibility of aspiration pneumonia versus pneumonitis. Intra uterine foreign body: Secondary to misplaced Castaneda catheter. Will do transvaginal ultrasound to confirm. Patient given vancomycin in the ER. For now hold off. Rhabdomyolysis: Most likely because of substance abuse. IV fluid as above. Recheck CPK tomorrow morning. Acute kidney injury/acute hyperkalemia: CT abdomen pelvis to rule out obstructive uropathy/nephropathy. Check urine lites, urine creatinine, urine osmolality. Medical reconciliation done for nephrotoxic drugs. For hyperkalemia patient given calcium gluconate, insulin 10/D50. Repeat insulin 10 units and D50. Recheck ABG and BMP at 8 PM. Transaminitis: Can be 2/2 possible drug overdose from unknown drug vs infective vs possible congestive given H/o drug abuse in past. Check HIV, hepatitis panel, liver USG. CHeck INR, LDH, GGT Check ECHO to r/o cardiomyopathy and IE If getting worse can try NAC. Med rec done. Psychiatry has been consulted. 96-hour hold. NPO. Heparin for DVT prophylaxis. Famotidine for PUD prophylaxis. Sitter at bedside. Admit to ICU. Attestations Medical Necessity Statement*: Admission for more than 2 midnights for management of altered mental status, drug overdose, acute kidney injury, severe rhabdomyolysis, acute hyperkalemia, 96-hour hold, sepsis secondary to pneumonia Critical Care Time: The high probability of a clinically significant, sudden or life threatening deterioration of the patient's [renal, neurological, gynecological] system(s) required my full and direct attention, intervention and personal management. The critical care time is as shown. This time is in addition to time spent performing any reported procedures but includes the following: [x] Data and vital sign review and interpretation [x] Patient assessment, examination and intervention [x] Documentation [x] Medication orders and management Critical Care Time (min): 90 Coding Level of Care Code Acute Shop Clerk for [facility] Fwd Exam Detailed Diagnoses Altered mental status R41.82 Overdose T50.901A Methamphetamine abuse F15.10 Sepsis A41.9 Pneumonia J18.9 Rhabdomyolysis M62.82 JINNY (acute kidney injury) N17.9 Transaminitis R74.01 Acute hyperkalemia E87.5 Vaginal foreign body T19.2XXA Metabolic acidosis E87.2 Anxiety F41.9 Depression F32.9
[2021-02-17] MEDS: piperacillin-tazobactam 3.375 GM in sodium chloride 0.9% (plus) 50 ML IV ×2 (17:09→23:23)
[2021-02-17] MEDS: azithromycin 500 MG in sodium chloride 0.9% 250 ML 250 MG IV (17:13)
[2021-02-17 17:18] LABS: Lactic Sepsis W/Reflex 3.5 mmol/L (0.5-2.2)
[2021-02-17 17:20] LABS: D Dimer 2.04 ug/mIFEU (0-0.59)
--- NOTE | 2021-02-17 17:48 | ECG_ITS ---
[facility] Test Date: 2021-02-17 Pat Name: Naida Chowdhury Department: Room: ICU10 Gender: Female Seater Assembler: : 1985 Requested By: Eb Saez Order Number: [id number] Lynda MD: Pretty Bliss M.D. Measurements Intervals [place] Rate: 108 P: 41 WV: 104 QRS: 46 QRSD: 82 T: 32 QT: 339 QTc: 455 Interpretive Statements SINUS TACHYCARDIA WITH SHORT WV INTERVAL MODERATE ST DEPRESSION [0.05+ mV ST DEPRESSION] Compared to ECG 02/17/2021 14:38:59 Short WV interval now present ST (T wave) deviation still present Electronically Signed On 02-17-2021 22:33:12 MOBILE MARKETING SPECIALIST by Pretty Bliss M.D. [id number]
[2021-02-17 18:08] LABS: Thyroid Stimulating Hormone 0.61 uIU/mL (0.27-4.20)
[2021-02-17 18:40] LABS: Reflex Lactate Order REFLEX LACTIC ORDERD
--- NOTE | 2021-02-17 19:00 | PC.NURSE ---
Patient arrived to unit at around 1830 via bed on 2L NC. Castaneda is patent and draining brown urine with heavy sediment and rash is noted to lower extremities. Patients right ear is swollen and tender to touch. She is A&O to self only and when asked other questions she turns her head away from staff.
[2021-02-17] MEDS: sodium chloride 0.9% 1,000 ML 125 ML IV (19:44)
[2021-02-17] MEDS: insulin regular-human 10 UNIT in SYRINGE 1 EACH IVP (19:44)
[2021-02-17] MEDS: ipratropium-albuterol 3 mL Neb INHALATION (20:17)
[2021-02-17 20:20] LABS: Lactic Acid level (Lactate) 2.6 mmol/L (0.5-2.2)
[2021-02-17 20:21] LABS: Troponin 5 6HR 236.5 ng/L (0-10); Troponin 5 6HR Delta 73.5 ng/L (0-12)
[2021-02-17] MEDS: vancomycin 1,000 MG in sodium chloride 0.9% 250 ML 250 MG IV ×2 (20:48→22:01)
[2021-02-17] MEDS: heparin 5,000 unit/mL INJ 1 mL 5000 UNIT SUBCUT (20:49)
[2021-02-17] MEDS: famotidine 20 mg/2 mL INJ IVP (20:49)
[2021-02-17 21:08] LABS: Adenovirus Not Detected (NOT DETECT); Chlamydia Pneumoniae Not Detected (NOT DETECT); Coronavirus 229E,HKU1,NL63,OC4 Not Detected (NOT DETECT); Human Metapneumovirus Not Detected (NOT DETECT); Human Rhinovirus/Enterovirus Not Detected (NOT DETECT); Influenza A Not Detected (NOT DETECT); Influenza A H1 Not Detected (NOT DETECT); Influenza A H1-2009 Not Detected (NOT DETECT); Influenza A H3 Not Detected (NOT DETECT); Influenza B Not Detected (NOT DETECT); Mycoplasma Pneumoniae Not Detected (NOT DETECT); Parainfluenza Virus Type 1 Not Detected (NOT DETECT); Parainfluenza Virus Type 2 Not Detected (NOT DETECT); Parainfluenza Virus Type 3 Not Detected (NOT DETECT); Parainfluenza Virus Type 4 Not Detected (NOT DETECT); Respiratory Syncytial Virus A Not Detected (NOT DETECT); Respiratory Syncytial Virus B Not Detected (NOT DETECT); SARS-COV-2 Not Detected (NOT DETECT)
[2021-02-17 21:49] LABS: Alanine Aminotransferase 296 U/L (0-33); Albumin Level 3.2 g/dL (3.5-5.2); Alkaline Phosphatase 81 IU/L (35-105); Anion Gap 18.6 (5-19); Aspartate Amino Transferase 627 U/L (0-32); Blood Urea Nitrogen 36 mg/dL (6-20); Calcium 8.1 mg/dL (8.5-10.5); Carbon Dioxide 20 mmol/L (22-29); Chloride 107 mmol/L (98-107); Globulin 2.6 g/dL (1.3-4.6); Glomerular Filtration Rate 23.1 mL/min (90-130); Glucose 57 mg/dL (65-115); Osmolality Calculated 298 mOsm/kg (285-295); Potassium 4.6 mmol/L (3.5-5.1); Sodium 141 mmol/L (136-145); Total Bilirubin 0.3 mg/dL (0.15-1.2); Total Protein 5.8 g/dL (6.6-8.7)
[2021-02-17 21:54] LABS: Influenza A Not Detected (NOT DETECT); Influenza A H1 Not Detected (NOT DETECT); Influenza A H1-2009 Not Detected (NOT DETECT); Influenza A H3 Not Detected (NOT DETECT); Influenza B Not Detected (NOT DETECT); Results from Genmark
[2021-02-17 21:54] LABS: Creatinine Clr Calc Pharmacy 28.5557
[2021-02-17 21:55] LABS: Rapid Plasma Reagin Syphilis Nonreactive (Nonreactive)
[2021-02-17 21:59] LABS: HIV 1 & 2 Antibody Non-Reactive (Non-Reactiv); HIV 1 & 2 Antigen Non-Reactive (Non-Reactiv)
[2021-02-17 22:02] LABS: Hepatitis A Antibody IgM Non-Reactive (Nonreactive); Hepatitis B Core AB, Total Non-Reactive (Nonreactive); Hepatitis B Surface AB 3.5 (11.5-1000); Hepatitis B Surface Antigen Non-Reactive (Nonreactive); Hepatitis C Virus Antibody Non-Reactive (Nonreactive)
[2021-02-17] MEDS: dextrose 5%-sod chloride 0.9% 1,000 ML 100 ML IV (23:22)
[2021-02-17] MEDS: iron sucrose 200 MG in sodium chloride 0.9% (100 ml) 100 ML 220 MG IV (23:22)
[2021-02-17] MEDS: FUROsemide 10 mg/mL SDV 10mL 60 MG IVP (23:22)
[2021-02-17 23:26] LABS: Ammonia 25 umol/L (11-51)
[2021-02-17 23:26] LABS: Gamma Glutamyl Transferase 58 U/L (5-36); Lactate Dehydrogenase 938 U/L (135-214)
[2021-02-17 23:35] LABS: Glucose Point of Care 101 mg/dL (70-110)
[2021-02-18] VITALS (51 sets, daily range): BP systolic 107–141; BP diastolic 55–82; PULSE 88–119; RESP 9–23; TEMP 36.8–37.1; O2SAT 68–100
[2021-02-18 00:57] LABS: INR 1.12 (0.8-1.2)
[2021-02-18 00:59] LABS: Fibrinogen 492 mg/dL (174-498)
[2021-02-18 01:09] LABS: D Dimer 2.15 ug/mIFEU (0-0.59)
[2021-02-18 01:57] LABS: Glucose Point of Care 115 mg/dL (70-110)
[2021-02-18] MEDS: heparin 5,000 unit/mL INJ 1 mL 5000 UNIT SUBCUT ×3 (02:53→18:30)
[2021-02-18] MEDS: ipratropium-albuterol 3 mL Neb INHALATION ×4 (03:00→20:00)
[2021-02-18 04:45] LABS: Basophils % 0.1 %; Hematocrit 43.2 % (37.0-47.0); Hemoglobin 13.6 g/dL (11.5-15.3); Lymphocytes % 4.4 %; Mean Corpuscular HGB Conc 31.5 g/dL (30.0-36.0); Mean Corpuscular Hemoglobin 27.9 pg (28.0-34.0); Mean Corpuscular Volume 88.7 fl (81-99); Mean Platelet Volume 10.1 fL (7.4-10.4); Monocytes # 1.3 10^3/uL (0.2-0.9); Neutrophils # 19.52 10^3/uL (1.8-7.7); Nucleated Red Blood Cells % 0 %; Platelet Count 278 10^3/cmm (130-400); Red Blood Count 4.87 10^6/uL (4.1-5.3); Red Cell Distribution Width 14.4 % (12.1-15.1); White Blood Count 21.9 10^3/uL (4.0-10.0)
[2021-02-18 05:08] LABS: Alanine Aminotransferase 311 U/L (0-33); Albumin Level 2.7 g/dL (3.5-5.2); Alkaline Phosphatase 87 IU/L (35-105); Anion Gap 21.4 (5-19); Aspartate Amino Transferase 650 U/L (0-32); Blood Urea Nitrogen 40 mg/dL (6-20); Carbon Dioxide 18 mmol/L (22-29); Chloride 106 mmol/L (98-107); Globulin 2.8 g/dL (1.3-4.6); Glomerular Filtration Rate 18.6 mL/min (90-130); Glucose 133 mg/dL (65-115); Osmolality Calculated 304 mOsm/kg (285-295); Potassium 4.4 mmol/L (3.5-5.1); Sodium 141 mmol/L (136-145); Total Bilirubin 0.4 mg/dL (0.15-1.2); Total Protein 5.5 g/dL (6.6-8.7)
[2021-02-18 05:09] LABS: Estmated Average Glucose 111; Hemoglobin A1C 5.5 % (4.0-6.0)
[2021-02-18 05:15] LABS: Chol HDL Ratio 2.38 mg/dL (0.0-4.40); Cholesterol 124 mg/dL (0-200); HDL Cholesterol 52 mg/dL (60-100); LDL Cholesterol Calculated 55 mg/dL (50-129); Triglycerides 87 mg/dL (0-150); VLDL Cholestrol Calculation 17 mg/dL (0-30)
[2021-02-18 06:18] LABS: Glucose Point of Care 149 mg/dL (70-110)
--- NOTE | 2021-02-18 06:21 | PC.NURSE ---
Updated patient's mother on patient condition. Mother would like the psychiatrist to contact her for plan of care. Mother's name is Mary phone number is [phone]. RN will pass message along to day shift.
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
[2021-02-18 08:15] LABS: Creatine Phosphokinase 32466 U/L (26-192)
[2021-02-18] MEDS: famotidine 20 mg/2 mL INJ IVP ×2 (08:51→22:16)
[2021-02-18] MEDS: sodium bicarbonate 8.4% 1 mEq/mL 50mL Syr 50 MEQ IVP (08:51)
[2021-02-18] MEDS: piperacillin-tazobactam 3.375 GM in sodium chloride 0.9% (plus) 50 ML IV ×2 (08:51→17:30)
[2021-02-18 09:24] LABS: Vancomycin Random 16.1 ug/mL (20.0-40.0)
[2021-02-18] MEDS: FUROsemide 10 mg/mL SDV 10mL 80 MG IVP (09:41)
--- NOTE | 2021-02-18 10:41 | PM.PN ---
Subjective Subjective: Interval history: Awake, conversant, complaining of pain in the buttocks. Good urine output. No overt uremic Sx. No edema and no other hypervol Sx. Hemodynamics remain stable Vitals/I&O/Wt Last Vital Signs Temp 98.4 F 02/17/21 11:41 Pulse 96 02/18/21 08:30 Resp 13 02/18/21 08:30 BP 128/70 02/18/21 08:30 Pulse Ox 96 02/18/21 08:30 02/17/21 02/18/21 02/18/21 22:59 06:59 14:59 Intake Total 1170 / 2170 970.1 / 3140.1 Output Total 400 / 400 350 / 750 325 / 325 Balance 770 / 1770 620.1 / 2390.1 -325 / -325 Weight last 48 hrs Weight 61.859 kg Weight 58.315 kg Weight 54.431 kg Physical Exam Narrative: EXAM NARRATIVE: Constitutional: Non communicative HEENT: Wet mucosa, no jvp, non icteric Lungs: Bilaterally clear without discernible wheeze, rales in all lung zones CVS: S1 S2, no murmurs Abdo: Soft, BS ok Ext 4: Minimal edema, peripheral perfusion with no cyanosis Data : 02/18/21 03:20 02/18/21 03:20 Micro: Microbiology 02/17/21 13:49 Bacterial Antigens - Final Urine Kidney 02/17/21 13:49 Legionella Urinary Antigen - Final Unknown Source 02/17/21 14:38 Blood Culture - Preliminary Blood SPECIMEN COLLECTED 02/17/21 14:38 Blood Culture - Preliminary Blood SPECIMEN COLLECTED A&P Additional A&P Information 1. Acute renal failure and rhabdomyolysis She was in her truck, likely in a sedated status and likely in a similar position for roughly 17 hours. CPK 29,000 increasing to 32,[address] Continue aggressive IV hydration Move off the buttocks! - this is likely the source of the muscle breakdown 2. Chemistry Mild acidosis otherwise well balanced. Cont ivf therapy Serum osmo pending, but suspicion for volatile ingestion is low 3. Long-term drug use Mother came to get her into rehab after she is medically treated and stabilized. Rafael Persaud MD Nephrology [phone] Patient seen and examined via telemedicine, with the assistance of the bedside RN > 25 min spent in evaluation and mgmt of patient Attestations Medical Necessity Statement*: eval for JINNY Coding Level of Care Code Acute Logistics Analyst for [facility]
[2021-02-18] MEDS: dextrose 5%-sod chloride 0.9% 1,000 ML 200 ML IV (11:10)
[2021-02-18 11:23] LABS: Glucose Point of Care 137 mg/dL (70-110)
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
--- NOTE | 2021-02-18 12:08 | PC.NURSE ---
This AM patient is upset about NPO status and is stating that if it doesn't get changed that she wants to be transferred to [place]. called and gave verbal order to change NPO order to a full liquid diet. Patient is still upset and wants to be moved to [place] to be closer to other family members.
[2021-02-18 12:13] LABS: Osmolality Serum 302 mOsm/kg (278-305)
--- NOTE | 2021-02-18 12:15 | PC.NURSE ---
Patient has been educated on the importance of turning self and changing positions. Patient has been seen in room turning self in bed. This nurse has assisted patient in placing pillows in pressure areas.
[2021-02-18 14:19] LABS: Alanine Aminotransferase 263 U/L (0-33); Albumin Level 2.6 g/dL (3.5-5.2); Alkaline Phosphatase 67 IU/L (35-105); Anion Gap 20.7 (5-19); Aspartate Amino Transferase 498 U/L (0-32); Blood Urea Nitrogen 42 mg/dL (6-20); Calcium 7.6 mg/dL (8.5-10.5); Carbon Dioxide 20 mmol/L (22-29); Chloride 103 mmol/L (98-107); Globulin 2.6 g/dL (1.3-4.6); Glomerular Filtration Rate 17.9 mL/min (90-130); Glucose 153 mg/dL (65-115); Osmolality Calculated 304 mOsm/kg (285-295); Potassium 3.7 mmol/L (3.5-5.1); Sodium 140 mmol/L (136-145); Total Bilirubin 0.3 mg/dL (0.15-1.2); Total Protein 5.2 g/dL (6.6-8.7)
--- NOTE | 2021-02-18 14:26 | PC.NURSE ---
Patient has been asking to talk to a loom changer. She stated his name was Truongkris Tripathi but did not know his phone number. This nurse attempted to look up his phone number but was unable to find it. Serge Tripathi was called and he stated he had not received the paperwork on the 96 hour hold.
[2021-02-18] MEDS: azithromycin 500 MG in sodium chloride 0.9% 250 ML 250 MG IV (14:51)
--- NOTE | 2021-02-18 15:31 | USCV_ITS ---
Naida Chowdhury Age: 35 Gender: F : 1985 Exam Date: 02/18/2021 06:32 Ordering Phys: Dennis Rosario MD Technologist: Mariia Singh [place] [facility] [place]: RHABDO, POSS IE BP: 124 / 69 HR: 95 Rhythm: Sinus Technical Quality: Technically difficult study MEASUREMENTS (Male / Female) Normal Values 2D ECHO LV Diastolic Diameter PLAX 3.9 cm 4.2 - 5.9 / 3.9 - 5.3 cm LV Systolic Diameter PLAX 2.8 cm IVS Diastolic Thickness 1.0 cm 0.6 - 1.0 / 0.6 - 0.9 cm IVS Systolic Thickness 1.3 cm LVPW Diastolic Thickness 1.1 cm 0.6 - 1.0 / 0.6 - 0.9 cm LVPW Systolic Thickness 1.5 cm LVOT Diameter 2.0 cm LV Ejection Fraction 2D Teich 54.4 % LV Ejection Fraction MOD 2C 49.8 % LV Ejection Fraction 2C AL 53.3 % LA Diameter 1.6 cm LA Width 2.1 cm LA Height 1.8 cm RA Width 1.8 cm RA Height 2.4 cm Aorta at Sinotubular Diameter 2.3 cm M-MODE Aortic Annulus Diameter 2.0 cm LA Ao Ratio MM 0.7 MV E Point Septal Separation 0.3 cm DOPPLER AV Peak Velocity 98.0 cm/s LVOT Peak Velocity 57.0 cm/s AV Area Cont Eq vti 1.9 cm squared AV Area Cont Eq pk 1.8 cm squared MV Peak Velocity 80.0 cm/s MV Area PHT 6.5 cm squared Mitral E to A Ratio 1.1 MV E' Velocity 37.0 cm/s Mitral E to MV E' Ratio 5.9 Mitral E to LV E' Lateral Ratio 5.7 Mitral E to LV E' Septal Ratio 6.1 TV Peak E Velocity 55.0 cm/s Right Atrial Pressure 3.0 mmHg FINDINGS Left Ventricle Mild diffuse hypokinesia of the left ventricle with ejection fraction of 50%. Technically difficult study because of poor ultrasonic window. Apical views could not be obtained Right Ventricle Possibly of normal size and ejection fraction Right Atrium Right atrium not well visualized. Left Atrium Possibly of normal size Mitral Valve No gross abnormalities noted Aortic Valve No gross abnormalities noted Tricuspid Valve No gross abnormalities noted Pulmonic Valve Pulmonic valve not well visualized. Pericardium Aorta Normal aortic annulus size. CONCLUSIONS Mild diffuse hypokinesia of the left ventricle with ejection fraction of 50%. Possibly normal left atrial size Possibly normal RV size ejection fraction The aortic and mitral valve morphology appears to be within normal limits. Technically difficult study because of the poor ultrasonic window. Dr Armani Li MD FAC (Electronically Signed) Final Date: 18 February 2021 18:48 S
--- NOTE | 2021-02-18 16:50 | US_ITS ---
WS: [id number] ULTRASOUND PELVIS TECHNIQUE: Transabdominal only. CLINICAL INFORMATION: possible intrauterine product LMP: : No. COMPARISON: CT February 17, 2021 FINDINGS: No evidence of intrauterine device or blood products. Normal uterus and endometrium. Ovarie s are normal in appearance. Normal adnexa. Uterus Orientation: Anteverted. Size: 7.0 cm x 5.5 cm x 4.6 cm Masses: None. Cervix: Normal Endometrium: Normal. Endometrium thickness: 0.8 cm. Adnexa: Normal. Right ovary size: 2.6 cm x 2.4 cm x 1.2 cm. Right ovary volume: 3.9 ccm3 Left ovary size: 2.8 cm x 1.9 cm x 1.3 cm. Left ovary volume: 3.5 ccm3 Free fluid: None. Other findings: Castaneda catheter in the bladder. US/US pelvic complete* [id number] IMPRESSION: 1. No evidence of intrauterine device or blood products. 2. Normal uterus and endometrium. 3. Ovaries are normal in appearance. Normal adnexa. 4. No free fluid in the cul-de-sac. 5. Castaneda catheter in the bladder.
--- NOTE | 2021-02-18 17:14 | PC.NURSE ---
IV medications late due to limited access.
[2021-02-18] MEDS: sodium chloride 0.9% 500 ML IV (17:30)
--- NOTE | 2021-02-18 17:58 | PC.NURSE ---
Patient has been turned Q2H throughout shift. She has been seen turning herself at times despite telling staff that she cannot move or feel her legs.
[2021-02-18] MEDS: LORazepam 2 mg/mL INJ 1 mL 0.5 MG IVP (18:38)
[2021-02-18] MEDS: iron sucrose 200 MG in sodium chloride 0.9% (100 ml) 100 ML 220 MG IV (22:16)
--- NOTE | 2021-02-18 22:18 | US_ITS ---
WS: [id number] ULTRASOUND ABDOMEN LIMITED CLINICAL INFORMATION: transaminitis COMPARISON: None. FINDINGS: Liver Size: Normal. Craniocaudal length: 15.4 cm. Echogenicity: Normal. Surface nodularity: None. Mass (size and location): None. Bile ducts Intrahepatic ducts: Normal. Common bile duct diameter: 0.4 cm. Gallbladder Cholelithiasis Gallstones: Present Gallbladder sludge: None. Gallbladder wall thickening: None. Pericholecystic fluid: None. Sonographic Ventura sign: Absent. Pancreas Not seen due to bowel gas. Right kidney: Normal. Hydronephrosis: None. Size: 10.4 cm x 5.0 cm x 5.0 cm. Abdominal aorta and IVC Visualized portions are normal. Ascites: None. US/US liver [id number] IMPRESSION: 1. Normal liver. 2. Cholelithiasis. Normal common bile duct. 3. No hydronephrosis in right kidney. 4. Pancreas not visualized due to bowel gas.
[2021-02-18] MEDS: sodium chloride 0.9% 1,000 ML 200 ML IV (22:21)
[2021-02-19] VITALS (50 sets, daily range): BP systolic 98–153; BP diastolic 61–96; PULSE 80–116; RESP 13–22; TEMP 36.7–36.8; O2SAT 94–100
[2021-02-19] MEDS: heparin 5,000 unit/mL INJ 1 mL 5000 UNIT SUBCUT ×3 (01:38→18:12)
[2021-02-19] MEDS: piperacillin-tazobactam 3.375 GM in sodium chloride 0.9% (plus) 50 ML IV ×4 (01:38→23:48)
[2021-02-19 04:14] LABS: Glucose Point of Care 77 mg/dL (70-110)
[2021-02-19 04:14] LABS: Glucose Point of Care 86 mg/dL (70-110)
[2021-02-19 04:41] LABS: Basophils % 0.2 %; Eosinophils % 0.1 %; Hemoglobin 12.1 g/dL (11.5-15.3); Lymphocytes # 1.2 10^3/uL (0.8-4.8); Lymphocytes % 9.6 %; Mean Corpuscular HGB Conc 32.7 g/dL (30.0-36.0); Mean Corpuscular Hemoglobin 28.3 pg (28.0-34.0); Mean Corpuscular Volume 86.4 fl (81-99); Mean Platelet Volume 9.8 fL (7.4-10.4); Neutrophils # 10.35 10^3/uL (1.8-7.7); Neutrophils % 81.8 %; Nucleated Red Blood Cells % 0 %; Platelet Count 205 10^3/cmm (130-400); Red Blood Count 4.28 10^6/uL (4.1-5.3); Red Cell Distribution Width 14.8 % (12.1-15.1); White Blood Count 12.6 10^3/uL (4.0-10.0)
[2021-02-19 05:09] LABS: Alanine Aminotransferase 245 U/L (0-33); Albumin Level 2.2 g/dL (3.5-5.2); Alkaline Phosphatase 177 IU/L (35-105); Anion Gap 19.5 (5-19); Aspartate Amino Transferase 473 U/L (0-32); Blood Urea Nitrogen 43 mg/dL (6-20); Calcium 7.7 mg/dL (8.5-10.5); Carbon Dioxide 18 mmol/L (22-29); Chloride 106 mmol/L (98-107); Globulin 2.9 g/dL (1.3-4.6); Glucose 98 mg/dL (65-115); Osmolality Calculated 301 mOsm/kg (285-295); Potassium 3.5 mmol/L (3.5-5.1); Sodium 140 mmol/L (136-145); Total Bilirubin 0.4 mg/dL (0.15-1.2); Total Protein 5.1 g/dL (6.6-8.7)
[2021-02-19 05:35] LABS: Creatine Phosphokinase 13710 U/L (26-192)
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
--- NOTE | 2021-02-19 07:23 | PC.NURSE ---
No adverse events occurred during shift. Patient calm, stable, and resting.
[2021-02-19] MEDS: sodium chloride 0.9% 1,000 ML 200 ML IV ×3 (07:46→19:58)
[2021-02-19] MEDS: famotidine 20 mg/2 mL INJ IVP ×2 (07:47→19:58)
[2021-02-19] MEDS: ipratropium-albuterol 3 mL Neb INHALATION (08:10)
--- NOTE | 2021-02-19 08:16 | PC.NURSE ---
Patient complaining of weakness, states I can't move my legs and I need physical therapy . Patient moving legs in the bed while nurse is watching patient 1:1. Patient not cooperative with exam.
--- NOTE | 2021-02-19 09:26 | P.PN_ITS ---
Subjective Subjective: Interval history: No acute events overnight. Patient has remained hemodynamically stable and afebrile. Received 1 dose of Ativan yesterday evening. Today morning on examination patient lying comfortably in bed. Sleeping, wakes up to verbal cue. Denies any nausea, vomiting, headache. Urine output 1100 cc since 6 AM today morning. Vitals/I&O/Wt Last Vital Signs Temp 98.3 F 02/18/21 20:30 Pulse 97 02/19/21 08:09 Resp 14 02/19/21 08:09 BP 135/82 02/19/21 08:00 Pulse Ox 100 02/19/21 08:09 02/18/21 02/19/21 02/19/21 22:59 06:59 14:59 Intake Total 410 / 1460 1000 / 2460 1909 Output Total 800 / 1975 1150 / 3125 Balance -390 / -515 -150 / -665 1909 Weight last 48 hrs Weight 65.913 kg Weight 61.859 kg Weight 58.315 kg Weight 54.431 kg Physical Exam Const: COMMON NORMALS: no acute distress, average body habitus, patient orie nted x3 and alert EXAM LIMITATIONS: altered mental status GENERAL APPEARANCE: lethargic and ill appearing ORIENTATION/CONSCIOUSNESS: Yes lethargic Eye: COMMON NORMALS: Equal, round and reactive pupils present and EOMs intact bilaterally PUPIL: Yes Equal, round and reactive pupils present, Yes Pupil accommodation reflex normal and Yes Pinpoint pupils Neck/C-Spine: COMMON NORMALS: no JVD Chest: COMMONS NORMALS: normal inspection of the chest Resp: COMMON NORMALS: normal respiratory effort AUSCULTATION: crackles (Lower and middle zone) Laterality: right Cardio: COMMON NORMALS: no JVD, regular rate and regular rhythm RATE: regular rate and tachycardic RHYTHM: regular rhythm GI: COMMON NORMALS: Normal to inspection, nondistended, normoactive bowel sounds present and Soft to palpation PALPATION: Yes Soft to palpation Neuro: COMMON NORMALS: patient oriented x3 SENSORIUM/ORIENTATION: Yes alert and Yes lethargic Data : 02/19/21 03:21 02/19/21 03:21 Micro: Microbiology 02/17/21 13:49 Urine Culture - Preliminary Urine,Clean Catch Gram Negative Rods 02/17/21 18:20 MRSA Culture - Final Nose 02/17/21 14:38 Blood Culture - Preliminary Blood NEGATIVE TO DATE 02/17/21 14:38 Blood Culture - Preliminary Blood NEGATIVE TO DATE 02/17/21 16:36 Gram Stain - Final Vaginal Genital Culture - Preliminary A&P Assessment and plan (1) Altered mental status: Status: Acute Qualifiers: Altered mental status type: somnolence Qualified Code(s): R40.0 - Somnolence (2) Overdose: Status: Acute Qualifiers: Encounter type: initial encounter Injury intent: undetermined intent Qualified Code(s): T50.904A - Poisoning by unspecified drugs, medicaments and biological substances, undetermined, initial encounter (3) Methamphetamine abuse: Status: Acute (4) Sepsis: Status: Acute (5) Pneumonia: Status: Acute (6) Rhabdomyolysis: Status: Acute Qualifiers: Encounter type: initial encounter Rhabdomyolysis type: traumatic Qualified Code(s): T79.6XXA - Traumatic ischemia of muscle, initial encounter (7) JINNY (acute kidney injury): Status: Acute (8) Oliguria: Status: Acute (9) Transaminitis: Status: Acute (10) Vaginal foreign body: Status: Acute (11) Metabolic acidosis: Resolved. Status: Acute (12) Acute hyperkalemia: Resolved. Status: Acute (13) Depression: Status: Acute Qualifiers: Active/Remission status: currently active Depression Type: major depressive disorder Major depression episode severity: severe Major depression recurrence: recurrent Psychotic features: without psychotic features Qualified Code(s): F33.2 - Major depressive disorder, recurrent severe without psychotic features (14) Anxiety: Status: Acute Additional A&P Information Altered mental status: Most likely secondary to overdose of unknown subjective. Has a history of meth abuse. Can be secondary to metabolic encephalopathy due to acute kidney injury and hyperkalemia versus secondary to sepsis. Urine drug screen positive for amphetamines, benzodiazepines, marijuana, negative for alcohol, acetaminophen, salicylate. Beta-hCG negative. COVID-19 PCR negative. Appreciate psychiatric recommendations Sitter at bedside. 96-hour hold as requested by family at bedside. Patient paperwork filled in by ER. Continue with normal saline at 200 cc/h. Sepsis: Criteria met through tachycardia, altered mental status, leukocytosis. Most likely secondary to aspiration pneumonitis Cultures so far negative, urine culture growing 40-50,000 gram-negative rods. Patient remains on room air. MRSA negative. Continue Zosyn to finish a 5-day course. Patient on oral agent depending on sensitivities from urine culture stop vancomycin, azithromycin. Rhabdomyolysis: Severe. Resolving. Down to 13,000 from 30,000 yesterday. Most likely because of substance abuse. IV fluid as above. Out of bed to chair. Recheck CPK tomorrow morning. Reposition. Acute kidney injury/acute hyperkalemia: CT abdomen pelvis to ruled out obstructive uropathy/nephropathy. Fena-0.4%?prerenal. Fluid as above. Medical reconciliation done for nephrotoxic drugs. Robust urine output. Strict input output charting. We will plan to keep patient equal intake and output for the next 24 hours. Appreciate nephrology recommendations. Continue to monitor BMP daily. Transaminitis: Can be 2/2 severe rhabdomyolysis versus possible drug overdose from unknown drug vs infective vs possible congestive given H/o drug abuse in past. HIV, hepatitis panel negative. DIC panel, INR within normal limits. LDH, GGT elevated appreciated. Liver ultrasound within normal limits. Post 100 mg/kg body weight 1 dose of NAC yesterday evening. Med rec done. Echocardiogram done shows an EF 50%, diffuse hypokinesia of left ventricle, poor study to evaluate for valvular abnormalities. Intra uterine foreign body: Secondary to misplaced Castaneda catheter. Appreciate transvaginal ultrasound. Appreciate nephrology and psychiatry evaluation. 96-hour hold. Full liquid diet. Swallow evaluation. Heparin for DVT prophylaxis. Famotidine for PUD prophylaxis. Sitter at bedside. Attestations Medical Necessity Statement*: Further hospitalization for management of altered mental status, JINNY, severe rhabdomyolysis, transaminitis in setting of drug overdose, depression, 96-hour hold Time Spent in Patient Care: Greater than 35 minutes (>than 50% of time spent in counselling and/or direct pt care on unit) . Coding Level of Care Code Acute Review Scheduling Coordinator for [facility] Fwd Exam Detailed Diagnoses Altered mental status R40.0 Altered mental status type: somnolence Overdose T50.904A Encounter type: initial encounter Injury intent: undetermined intent Methamphetamine abuse F15.10 Sepsis A41.9 Pneumonia J18.9 Rhabdomyolysis T79.6XXA Encounter type: initial encounter Rhabdomyolysis type: traumatic JINNY (acute kidney injury) N17.9 Oliguria R34 Transaminitis R74.01 Vaginal foreign body T19.2XXA Metabolic acidosis E87.2 Acute hyperkalemia E87.5 Depression F33.2 Active/Remission status: currently active Depression Type: major depressive disorder Major depression episode severity: severe Major depression recurrence: recurrent Psychotic features: without psychotic features Anxiety F41.9
--- NOTE | 2021-02-19 11:12 | PC.SLP ---
Two attempts were made to evaluate patient however she refused. Nursing reported she has been able to drink water and take her pills without difficulty. Patient reports she eats in stages due to her cervical band surgery.
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
[2021-02-19 12:04] LABS: Glucose Point of Care 78 mg/dL (70-110)
--- NOTE | 2021-02-19 12:23 | PC.NURSE ---
Up to chair by physical therapy. Patient did walk a few steps with walker and PT, complained of left hip pain.
--- NOTE | 2021-02-19 12:25 | PC.NURSE ---
Patient working with physical therapy. Physical therapist conversing with patient about today and mentioned that he had woke up 10 minutes prior to his alarm going off and that he fell back to sleep within the 10 minutes before his alarm going off. He noted that he didn't want to wake up and go to work. Patient replied that she was upset that she woke up today. When this nurse questioned the patient's statement she did not respond.
[2021-02-19] MEDS: acetaminophen 325 mg Tablet 650 MG PO (12:41)
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
[2021-02-19 14:58] LABS: Glucose Point of Care 115 mg/dL (70-110)
--- NOTE | 2021-02-19 15:09 | PC.NURSE ---
Food trays Patient asking nurse to leave trays in room because she is a nibbler .
--- NOTE | 2021-02-19 17:17 | PC.NURSE ---
Patient required moderate assistance with transferring from chair to wheelchair, wheelchair to CT gantry, and then back to bed. Patient complaining of left leg pain/weakness during transfer. Patient falls to sleep within minutes of going back to bed, but is opens eyes to verbal stimuli. Nurse would rate FLACC pain no greater than a 3. Patient smiles at nurse during transferring.
[2021-02-19 18:20] LABS: Glucose Point of Care 79 mg/dL (70-110)
[2021-02-19] MEDS: lanolin oint 7 gm 1 APPLIC TOPICAL (18:22)
--- NOTE | 2021-02-19 18:35 | PC.NURSE ---
Family Patient request this nurse to call and update boyfriend (Reese [phone]), mother, and father. All members called and updated. No further questions.
[2021-02-19] MEDS: iron sucrose 200 MG in sodium chloride 0.9% (100 ml) 100 ML 220 MG IV (21:23)
[2021-02-19] MEDS: LORazepam 2 mg/mL INJ 1 mL 0.5 MG IVP (22:32)
[2021-02-19 23:16] LABS: Glucose Point of Care 78 mg/dL (70-110)
[2021-02-20] VITALS (44 sets, daily range): BP systolic 120–149; BP diastolic 69–96; PULSE 76–102; RESP 13–25; TEMP 36.8–37.1; O2SAT 92–100
[2021-02-20] MEDS: heparin 5,000 unit/mL INJ 1 mL 5000 UNIT SUBCUT ×3 (02:02→17:29)
[2021-02-20] MEDS: sodium chloride 0.9% 1,000 ML 200 ML IV ×2 (02:02→07:13)
[2021-02-20 02:46] LABS: Glucose Point of Care 72 mg/dL (70-110)
[2021-02-20 05:44] LABS: Glucose Point of Care 80 mg/dL (70-110)
[2021-02-20] MEDS: piperacillin-tazobactam 3.375 GM in sodium chloride 0.9% (plus) 50 ML IV ×2 (07:13→15:19)
[2021-02-20] MEDS: famotidine 20 mg/2 mL INJ IVP ×2 (07:13→19:45)
[2021-02-20 07:29] LABS: Basophils % 0.2 %; Eosinophils # 0.1 10^3/uL (0.0-0.8); Eosinophils % 0.5 %; Hematocrit 34.3 % (37.0-47.0); Hemoglobin 11.1 g/dL (11.5-15.3); Lymphocytes # 0.9 10^3/uL (0.8-4.8); Lymphocytes % 8.9 %; Mean Corpuscular HGB Conc 32.4 g/dL (30.0-36.0); Mean Corpuscular Hemoglobin 28.1 pg (28.0-34.0); Mean Corpuscular Volume 86.8 fl (81-99); Mean Platelet Volume 9.5 fL (7.4-10.4); Monocytes # 0.6 10^3/uL (0.2-0.9); Monocytes % 6.4 %; Neutrophils # 8.07 10^3/uL (1.8-7.7); Neutrophils % 83.8 %; Nucleated Red Blood Cells % 0 %; Platelet Count 171 10^3/cmm (130-400); Red Blood Count 3.95 10^6/uL (4.1-5.3); Red Cell Distribution Width 14.7 % (12.1-15.1); White Blood Count 9.6 10^3/uL (4.0-10.0)
[2021-02-20] MEDS: acetaminophen 325 mg Tablet 650 MG PO ×3 (07:45→22:04)
[2021-02-20 07:49] LABS: Alanine Aminotransferase 192 U/L (0-33); Albumin Level 2.3 g/dL (3.5-5.2); Alkaline Phosphatase 63 IU/L (35-105); Anion Gap 17.3 (5-19); Aspartate Amino Transferase 321 U/L (0-32); Blood Urea Nitrogen 37 mg/dL (6-20); Calcium 7.5 mg/dL (8.5-10.5); Carbon Dioxide 18 mmol/L (22-29); Chloride 109 mmol/L (98-107); Globulin 2.8 g/dL (1.3-4.6); Glomerular Filtration Rate 17.9 mL/min (90-130); Glucose 74 mg/dL (65-115); Osmolality Calculated 299 mOsm/kg (285-295); Potassium 3.3 mmol/L (3.5-5.1); Sodium 141 mmol/L (136-145); Total Bilirubin 0.5 mg/dL (0.15-1.2); Total Protein 5.1 g/dL (6.6-8.7)
[2021-02-20 08:11] LABS: Creatine Phosphokinase 8848 U/L (26-192)
--- NOTE | 2021-02-20 09:51 | PM.PN ---
Subjective Subjective: Interval history: Naida is very sleepy today. No new issues though, she is comfortable. Robust urine output, tolerating high-dose IV fluids well without any accumulation of edema. Total in 5060, total out 2375. No uremic symptoms. Passing urine without obstruction. Vitals/I&O/Wt Last Vital Signs Temp 98.3 F 02/19/21 20:00 Pulse 96 02/20/21 09:14 Resp 17 02/20/21 09:14 BP 126/77 02/20/21 09:00 Pulse Ox 99 02/20/21 09:14 02/19/21 02/20/21 02/20/21 22:59 06:59 14:59 Intake Total 1160 / 4800 1050 / 5850 1360 / 1360 Output Total 1300 / 1300 1075 / 2375 Balance -140 / 3500 -25 / 3475 1360 / 1360 Weight last 48 hrs Weight 66.395 kg Weight 65.913 kg Physical Exam Narrative: EXAM NARRATIVE: Constitutional: Non communicative HEENT: Wet mucosa, no jvp, non icteric Lungs: Bilaterally clear without discernible wheeze, rales in all lung zones CVS: S1 S2, no murmurs Abdo: Soft, BS ok Ext 4: Minimal edema, peripheral perfusion with no cyanosis Urinary Catheter Management^: Castaneda: Cath Placed During This Visit: yes Reason for Continuing Indwelling Catheter: Accurate Measurement of Urinary Output in Critically Ill Patients Urinary Catheter Date of Insertion: 02/17/21 Data : 02/20/21 06:54 02/20/21 06:54 Micro: Microbiology 02/17/21 13:49 Urine Culture - Final Urine,Clean Catch Escherichia coli 02/17/21 16:36 Gram Stain - Final Vaginal Genital Culture - Preliminary Strep agalactiae - (group b) A&P Additional A&P Information 1. Acute renal failure and rhabdomyolysis She was in her truck, likely in a sedated status and likely in a similar position for roughly 17 hours. CPK peaked and is now downtrending Continue IV hydration at dropped rate of 100mL/hr am labs 2. Chemistry Will give K-citrate 3. Long-term drug use Mother came to get her into rehab after she is medically treated and stabilized. Rafael Persaud MD Nephrology [phone] Patient seen and examined via telemedicine, with the assistance of the bedside RN > 25 min spent in evaluation and mgmt of patient Attestations Medical Necessity Statement*: eval for JINNY Coding Level of Care Code Acute [employer] Lay[employer] Line Core Feeder for [facility]
[2021-02-20] MEDS: potassium bicarb 25 mEq Tablet 50 MEQ PO (10:05)
[2021-02-20 11:23] LABS: Glucose Point of Care 88 mg/dL (70-110)
--- NOTE | 2021-02-20 11:55 | P.PN_ITS ---
Subjective Subjective: Interval history: No acute events overnight. Has remained hemodynamically stable and afebrile. 1300 cc of urine output overnight. On examination sleeping. Did have breakfast today morning. Nurse at bedside. Vitals/I&O/Wt Last Vital Signs Temp 98.3 F 02/19/21 20:00 Pulse 96 02/20/21 09:14 Resp 17 02/20/21 09:14 BP 126/77 02/20/21 09:00 Pulse Ox 99 02/20/21 09:14 02/19/21 02/20/21 02/20/21 22:59 06:59 14:59 Intake Total 1160 / 4800 1050 / 5850 1766.667 / 1766.667 Output Total 1300 / 1300 1075 / 2375 Balance -140 / 3500 -25 / 3475 1766.667 / 1766.667 Weight last 48 hrs Weight 66.395 kg Weight 65.913 kg Physical Exam Const: COMMON NORMALS: no acute distress, average body habitus, patient oriented x3 and alert EXAM LIMITATIONS: altered mental status GENERAL APPEARANCE: lethargic and ill appearing ORIENTATION/CONSCIOUSNESS: Yes lethargic Eye: COMMON NORMALS: Equal, round and reactive pupils present and EOMs intact bilaterally PUPIL: Yes Equal, round and reactive pupils present, Yes Pupil accommodation reflex normal and Yes Pinpoint pupils Neck/C-Spine: COMMON NORMALS: no JVD Chest: COMMONS NORMALS: normal inspection of the chest Resp: COMMON NORMALS: normal respiratory effort AUSCULTATION: crackles (Lower and middle zone) Laterality: right Cardio: COMMON NORMALS: no JVD, regular rate and regular rhythm RATE: regular rate and tachycardic RHYTHM: regular rhythm GI: COMMON NORMALS: Normal to inspection, nondistended, normoactive bowel sounds present and Soft to palpation PALPATION: Yes Soft to palpation Neuro: COMMON NORMALS: patient oriented x3 SENSORIUM/ORIENTATION: Yes alert and Yes lethargic Urinary Catheter Management^: Castaneda: Cath Placed During This Visit: yes Reason for Continuing Indwelling Catheter: Accurate Measurement of Urinary Output in Critically Ill Patients Urinary Catheter Date of Insertion: 02/17/21 Data : 02/20/21 06:54 02/20/21 06:54 Micro: Microbiology 02/17/21 13:49 Urine Culture - Final Urine,Clean Catch Escherichia coli 02/17/21 16:36 Gram Stain - Final Vaginal Genital Culture - Preliminary Strep agalactiae - (group b) A&P Assessment and plan (1) Altered mental status: Status: Acute Qualifiers: Altered mental status type: somnolence Qualified Code(s): R40.0 - Somnolence (2) Overdose: Status: Acute Qualifiers: Encounter type: initial encounter Injury intent: undetermined intent Qualified Code(s): T50.904A - Poisoning by unspecified drugs, medicaments and biological substances, undetermined, initial encounter (3) Methamphetamine abuse: Status: Acute (4) Sepsis: Status: Acute (5) Pneumonia: Status: Acute (6) Rhabdomyolysis: Status: Acute Qualifiers: Encounter type: initial encounter Rhabdomyolysis type: traumatic Qualified Code(s): T79.6XXA - Traumatic ischemia of muscle, initial encounter (7) JINNY (acute kidney injury): Status: Acute (8) Oliguria: Status: Acute (9) Transaminitis: Status: Acute (10) Vaginal foreign body: Status: Acute (11) Metabolic acidosis: Resolved. Status: Acute (12) Acute hyperkalemia: Resolved. Status: Acute (13) Depression: Status: Acute Qualifiers: Depression Type: major depressive disorder Major depression recurrence: recurrent Active/Remission status: currently active Major depression episode severity: severe Psychotic features: without psychotic features Qualified Code(s): F33.2 - Major depressive disorder, recurrent severe without psychotic features (14) Anxiety: Status: Acute Additional A&P Information Altered mental status: Resolved. Most likely secondary to overdose of unknown subjective. Has a history of meth abuse. Can be secondary to metabolic encephalopathy due to acute kidney injury and hyperkalemia versus secondary to sepsis. Urine drug screen positive for amphetamines, benzodiazepines, marijuana, negative for alcohol, acetaminophen, salicylate. Beta-hCG negative. COVID-19 PCR negative. Appreciate psychiatric recommendations Sitter at bedside. 96-hour hold as requested by family at bedside. Patient paperwork filled in by ER. Continue with normal saline but rate dropped rate at 100 cc/h. Will monitor urine output and change the fluid rate accordingly. Sepsis: Resolved. Criteria met through tachycardia, altered mental status, leukocytosis. Most likely secondary to aspiration pneumonitis Cultures so far negative, urine culture pansensitive E. coli. Vagina swab showing strep. Patient remains on room air. MRSA negative. Continue Zosyn to finish a 5-day course. Last dose on February 22 Rhabdomyolysis: Severe. Resolving. Most likely because of substance abuse. IV fluid as above. Out of bed to chair. Recheck CPK tomorrow morning. Reposition. Acute kidney injury/acute hyperkalemia: Resolving. Hyperkalemia resolved. CT abdomen pelvis to ruled out obstructive uropathy/nephropathy. Fena-0.4%?prerenal. Fluid as above. Medical reconciliation done for nephrotoxic drugs. Robust urine output. Strict input output charting. We will plan to keep patient equal intake and output for the next 24 hours. Appreciate nephrology recommendations. Continue to monitor BMP daily. Transaminitis: Resolving. Can be 2/2 severe rhabdomyolysis versus possible drug overdose from unknown drug vs infective vs possible congestive given H/o drug abuse in past. HIV, hepatitis panel negative. DIC panel, INR within normal limits. LDH, GGT elevated appreciated. Liver ultrasound within normal limits. Post 100 mg/kg body weight 1 dose of NAC on day of admission. Med rec done. Echocardiogram done shows an EF 50%, diffuse hypokinesia of left ventricle, poor study to evaluate for valvular abnormalities. Intra uterine foreign body: Secondary to misplaced Castaneda catheter. Appreciate transvaginal ultrasound. Appreciate nephrology and psychiatry evaluation. 96-hour hold. Full liquid diet. Swallow evaluation. Heparin for DVT prophylaxis. Famotidine for PUD prophylaxis. Sitter at bedside. Attestations Medical Necessity Statement*: Requires further hospitalization for management of severe rhabdomyolysis, JINNY, transaminitis in setting of drug overdose, 96- hour hold Time Spent in Patient Care: Greater than 35 minutes (>than 50% of time spen t in counselling and/or direct pt care on unit) . Coding Level of Care Code Acute Leather Polisher for [facility] Fwd Diagnoses Altered mental status R40.0 Altered mental status type: somnolence Overdose T50.904A Encounter type: initial encounter Injury intent: undetermined intent Methamphetamine abuse F15.10 Sepsis A41.9 Pneumonia J18.9 Rhabdomyolysis T79.6XXA Encounter type: initial encounter Rhabdomyolysis type: traumatic JINNY (acute kidney injury) N17.9 Oliguria R34 Transaminitis R74.01 Vaginal foreign body T19.2XXA Metabolic acidosis E87.2 Acute hyperkalemia E87.5 Depression F33.2 Depression Type: major depressive disorder Major depression recurrence: recurrent Active/Remission status: currently active Major depression episode severity: severe Psychotic features: without psychotic features Anxiety F41.9
[2021-02-20] MEDS: sodium chloride 0.9% 1,000 ML 100 ML IV (16:02)
--- NOTE | 2021-02-20 18:19 | PC.NURSE ---
Shift Note Frequent safety and comfort rounds continue. Orders and nursing care completed as indicated. Patient worked with physical therapy to day and got up to chair with assistance of a standard walker. Ms. Chowdhury tolerated well, but did complain of some pain to her right foot. Pt noted to have sat in chair for 6 hors today. Patient received sponge bath and linen change. Noted to have 2 moderate liquid BMs and abd cramping due to menstrual cramps and a total of 1,200ml out in urine. Patient spoke with father and boyfriend on the phone today and they were educated on visiting hours per NPU requirements, verbalized understanding. Patient monitored for response to intervention and treatments. Education provided include position changes, exercises taught by Des, PT, visiting hours, and new medications. Patient verbalized understanding. Will continue to monitor.
--- NOTE | 2021-02-20 19:30 | PC.NURSE ---
Report received from presley RN. Patient is resting comfortably in bed with her eyes closed. Patient is easy to arouse. Castaneda catheter indwelling and draining well. NS at 100ml/hr infusing to R AC IV. All vital signs are stable. Patient requests assistance repositioning onto her R side. Patient is complaining of a headache and requests her prn tylenol whenever it is due. Patient states that she is able to wait for her tylenol and does not need additional medication. Matilda arrived at the bedside.
--- NOTE | 2021-02-20 20:31 | W.PM.NPUPNS ---
Subjective NPU Subjective: Interval history: Patient presents today reporting that she does want to be with her family. She is adamant that she is not suicidal and her current thought is that someone slipped her something. She gave no sense about why someone would do that we discussed her history and concerns that this was related to self-harm which she continued to deny. We discussed the fact that she was on a 96-hour hold and that we would do this time to figure out what level concern is as well as continue to work on her other medical concerns that continue to keep her in the ICU. Mental Status Exam MSE Comments: This is a well-nourished, well-developed white female in hospital gown with adequate grooming and limited eye contact. No abnormal movements except for psychomotor retardation. Cooperative with exam in no mild to moderate distress. Speech was decreased rate and volume. Mood described as better, affect labile. Thought process organized. Thought content: Patient denied suicidal or homicidal ideation, there were no delusions reported or noted, she denied any auditory or visual hallucinations. Attention and concentration were intact and memory appeared reliable but none were formally tested. She is alert and oriented x3. Insight and judgment were limited, impulse control is limited. Vitals/I&O/Wt Last Vital Signs Temp 98.7 F 02/20/21 20:00 Pulse 88 02/20/21 20:00 Resp 15 02/20/21 20:00 BP 123/71 02/20/21 20:00 Pulse Ox 97 02/20/21 20:00 02/20/21 14:59 Intake Total 2486.667 / 2486.667 Output Total 900 / 900 Balance 1586.667 / 1586.667 appointment was at [facility] and Weight last 48 hrs Weight 64.093 kg Weight 66.395 kg Physical Exam Urinary Catheter Management^: Castaneda: Cath Placed During This Visit: yes Reason for Continuing Indwelling Catheter: Accurate Measurement of Urinary Output in Critically Ill Patients Urinary Catheter Date of Insertion: 02/17/21 Data NPU : 02/22/21 Unknown 02/21/21 03:35 Micro: Microbiology 02/17/21 16:36 Gram Stain - Final Vaginal Genital Culture - Final Strep agalactiae - (group b) 02/17/21 13:49 Urine Culture - Final Urine,Clean Catch Escherichia coli Microbiology 02/17/21 16:36 Vaginal Gram Stain - Final 02/17/21 16:36 Vaginal Genital Culture - Final Strep agalactiae - (group b) 02/17/21 13:49 Urine,Clean Catch Urine Culture - Final Escherichia coli A&P Assessment and plan (1) Altered mental status: Status: Acute Qualifiers: Altered mental status type: somnolence Qualified Code(s): R40.0 - Somnolence (2) Overdose: Status: Acute Qualifiers: Encounter type: initial encounter Injury intent: undetermined intent Qualified Code(s): T50.904A - Poisoning by unspecified drugs, medicaments and biological substances, undetermined, initial encounter (3) Methamphetamine abuse: Status: Acute (4) Transaminitis: Status: Acute (5) Metabolic acidosis: Status: Acute (6) JINNY (acute kidney injury): Status: Acute (7) Sepsis: Status: Acute (8) Acute hyperkalemia: Status: Acute (9) Pneumonia: Status: Acute (10) Vaginal foreign body: Status: Acute (11) Anxiety: Status: Acute (12) Depression: Status: Acute Qualifiers: Depression Type: major depressive disorder Major depression recurrence: recurrent Active/Remission status: currently active Major depression episode severity: severe Psychotic features: without psychotic features Qualified Code(s): F33.2 - Major depressive disorder, recurrent severe without psychotic features (13) Rhabdomyolysis: Status: Acute Qualifiers: Encounter type: initial encounter Rhabdomyolysis type: traumatic Qualified Code(s): T79.6XXA - Traumatic ischemia of muscle, initial encounter (14) Oliguria: Status: Acute Additional A&P Information This is a 35-year-old female with apparent overdose of some substance causing prolonged somnolence. She is known to this va underwriter through previous encounters and denied culpability with the last encounter and he is to report that she is the victim of someone else's behavior and not her own choices and is lobbying to be discharged soon as possible. 1. Continue current medication. 2. Continue 1-1 monitoring. 3. We will continue following. 4. Encourage sober living treatment after discharge at the highest level of care to which he is willing to commit. 5. We will consider transfer to the neuropsychiatric unit versus discharge as she is medically cleared. Involuntary Hold Information 96 Hour Hold: 96 Hour Involuntary Admission: Yes 96 Hour Hold Ending Date: 05/22/20 96 Hour Hold Ending Time: 15:46 Attestations NPU Medical Necessity Statement*: N/A. Please see primary team note for medical necessity and will evaluate for need for psychiatric care beyond that point. 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 [employer] [facility] Diagnoses Altered mental status R40.0 Altered mental status type: somnolence Overdose T50.904A Encounter type: initial encounter Injury intent: undetermined intent Methamphetamine abuse F15.10 Transaminitis R74.01 Metabolic acidosis E87.2 JINNY (acute kidney injury) N17.9 Sepsis A41.9 Acute hyperkalemia E87.5 Pneumonia J18.9 Vaginal foreign body T19.2XXA Anxiety F41.9 Depression F33.2 Depression Type: major depressive disorder Major depression recurrence: recurrent Active/Remission status: currently active Major depression episode severity: severe Psychotic features: without psychotic features Rhabdomyolysis T79.6XXA Encounter type: initial encounter Rhabdomyolysis type: traumatic Oliguria R34
[2021-02-20 22:04] LABS: Glucose Point of Care 73 mg/dL (70-110)
[2021-02-21] VITALS (28 sets, daily range): BP systolic 113–146; BP diastolic 67–81; PULSE 72–102; RESP 14–24; TEMP 36.8; O2SAT 92–100
[2021-02-21] MEDS: iron sucrose 200 MG in sodium chloride 0.9% (100 ml) 100 ML 220 MG IV ×2 (00:54→23:39)
[2021-02-21] MEDS: piperacillin-tazobactam 3.375 GM in sodium chloride 0.9% (plus) 50 ML IV ×3 (01:35→16:15)
[2021-02-21] MEDS: heparin 5,000 unit/mL INJ 1 mL 5000 UNIT SUBCUT ×3 (01:35→17:24)
[2021-02-21 03:12] LABS: Glucose Point of Care 81 mg/dL (70-110)
[2021-02-21] MEDS: LORazepam 2 mg/mL INJ 1 mL 0.5 MG IVP (03:30)
[2021-02-21] MEDS: sodium chloride 0.9% 1,000 ML 100 ML IV ×2 (03:58→20:33)
[2021-02-21] MEDS: acetaminophen 325 mg Tablet 650 MG PO ×3 (03:59→20:31)
[2021-02-21 04:35] LABS: Alanine Aminotransferase 170 U/L (0-33); Albumin Level 1.9 g/dL (3.5-5.2); Alkaline Phosphatase 72 IU/L (35-105); Aspartate Amino Transferase 291 U/L (0-32); Blood Urea Nitrogen 37 mg/dL (6-20); Calcium 7.3 mg/dL (8.5-10.5); Carbon Dioxide 17 mmol/L (22-29); Chloride 110 mmol/L (98-107); Globulin 2.8 g/dL (1.3-4.6); Glomerular Filtration Rate 18.6 mL/min (90-130); Glucose 75 mg/dL (65-115); Osmolality Calculated 297 mOsm/kg (285-295); Sodium 140 mmol/L (136-145); Total Bilirubin 0.5 mg/dL (0.15-1.2); Total Protein 4.7 g/dL (6.6-8.7)
[2021-02-21 04:38] LABS: Anion Gap 16.3 (5-19); Potassium 3.3 mmol/L (3.5-5.1)
[2021-02-21 05:08] LABS: Basophils % 0.3 %; Eosinophils # 0.1 10^3/uL (0.0-0.8); Eosinophils % 0.8 %; Hematocrit 34.8 % (37.0-47.0); Hemoglobin 11.1 g/dL (11.5-15.3); Lymphocytes % 13.8 %; Mean Corpuscular HGB Conc 31.9 g/dL (30.0-36.0); Mean Corpuscular Hemoglobin 28.5 pg (28.0-34.0); Mean Corpuscular Volume 89.5 fl (81-99); Mean Platelet Volume 10.5 fL (7.4-10.4); Monocytes # 0.7 10^3/uL (0.2-0.9); Monocytes % 9.3 %; Neutrophils # 5.53 10^3/uL (1.8-7.7); Nucleated Red Blood Cells % 0 %; Platelet Count 137 10^3/cmm (130-400); Red Blood Count 3.89 10^6/uL (4.1-5.3); Red Cell Distribution Width 15.2 % (12.1-15.1); White Blood Count 7.4 10^3/uL (4.0-10.0)
--- NOTE | 2021-02-21 05:21 | PC.NURSE ---
SHIFT NOTE Patient became increasingly more anxious as the night progressed. Patient is restless and agitated. Patient repeatedly states, I just want to go home. I'm leaving as soon as my hold is up. Y'all can't make me stay here. Verbally de-escalated the patient and redirected the conversation. Assisted the patient to the bedside commode twice and patient tolerated activity well. Patient sat up in the chair for about an hour and then requested to go back to bed. Patient requested that the rings on her hand be removed because they were uncomfortable. Assisted in removing her rings and placed them in a labeled denture cup at the bedside. Patient is now resting calmly in bed with the sitter at the bedside.
[2021-02-21 06:16] LABS: Glucose Point of Care 77 mg/dL (70-110)
[2021-02-21] MEDS: famotidine 20 mg/2 mL INJ IVP ×2 (07:55→20:32)
--- NOTE | 2021-02-21 09:11 | P.PN_ITS ---
Subjective Subjective: Interval history: Doing well today with no acute issues. No edema and no other volume issues. Tolerating ivf. No uremic Sx Vitals/I&O/Wt Last Vital Signs Temp 98.7 F 02/20/21 20:00 Pulse 101 H 02/21/21 08:00 Resp 24 H 02/21/21 08:00 BP 129/76 02/21/21 08:00 Pulse Ox 99 02/21/21 04:16 02/20/21 02/21/21 02/21/21 22:59 06:59 14:59 Intake Total 1053.333 / 3540.000 1641.667 / 5181.667 Output Total 300 / 1200 850 / 2050 Balance 753.333 / 2340.000 791.667 / 3131.667 Weight last 48 hrs Weight 64.093 kg Weight 66.395 kg Physical Exam Narrative: EXAM NARRATIVE: Constitutional: Non communicative HEENT: Wet mucosa, no jvp, non icteric Lungs: Bilaterally clear without discernible wheeze, rales in all lung zones CVS: S1 S2, no murmurs Abdo: Soft, BS ok Ext 4: Minimal edema, peripheral perfusion with no cyanosis Urinary Catheter Management^: Castaneda: Cath Placed During This Visit: yes Reason for Continuing Indwelling Catheter: Accurate Measurement of Urinary Output in Critically Ill Patients Urinary Catheter Date of Insertion: 02/17/21 Data : 02/21/21 03:35 02/21/21 03:35 Micro: Microbiology 02/17/21 16:36 Gram Stain - Final Vaginal Genital Culture - Final Strep agalactiae - (group b) 02/17/21 13:49 Urine Culture - Final Urine,Clean Catch Escherichia coli A&P Additional A&P Information 1. Acute renal failure and rhabdomyolysis Creatinine remains stable but yet to fully recover She was in her truck, likely in a sedated status and likely in a similar position for roughly 17 hours. CPK peaked and is now downtrending Continue IV hydration at dropped rate of 100mL/hr am labs 2. Chemistry Cont K-citrate 3. Ok for DC/transfer today from my perspective. Outpatient renal follow up Acute renal issues have resolved, will follow peripherally at this time, thank you Rafael Persaud MD Nephrology [phone] Patient seen and examined via telemedicine, with the assistance of the bedside RN > 25 min spent in evaluation and mgmt of patient Attestations Medical Necessity Statement*: Eval for JINNY Coding Level of Care Code Acute Apartment Maintenance Manager for Royce De La Vega
[2021-02-21] MEDS: potassium bicarb 25 mEq Tablet 50 MEQ PO ×2 (09:48→17:24)
[2021-02-21 11:27] LABS: Glucose Point of Care 91 mg/dL (70-110)
--- NOTE | 2021-02-21 12:54 | PM.PN ---
Subjective Subjective: Interval history: Seen multiple times during the day. On examination Electrocardiogram drip. Wakes up to verbal treatment. Able to answer complete conversation. States feeling better. Complaining of tingling in her lower limbs. When seen again during the day walking down the anders with physical therapy. Vitals/I&O/Wt Last Vital Signs Temp 98.7 F 02/20/21 20:00 Pulse 101 H 02/21/21 08:00 Resp 24 H 02/21/21 08:00 BP 129/76 02/21/21 08:00 Pulse Ox 99 02/21/21 04:16 02/20/21 02/21/21 02/21/21 22:59 06:59 14:59 Intake Total 1053.333 / 3540.000 1641.667 / 5181.667 120 / 120 Output Total 300 / 1200 850 / 2050 Balance 753.333 / 2340.000 791.667 / 3131.667 120 / 120 Weight last 48 hrs Weight 64.093 kg Weight 66.395 kg Physical Exam Const: COMMON NORMALS: no acute distress, average body habitus, patient oriented x3 and alert EXAM LIMITATIONS: altered mental status GENERAL APPEARANCE: lethargic and ill appearing ORIENTATION/CONSCIOUSNESS: Yes lethargic Eye: COMMON NORMALS: Equal, round and reactive pupils present and EOMs intact bilaterally PUPIL: Yes Equal, round and reactive pupils present, Yes Pupil accommodation reflex normal and Yes Pinpoint pupils Neck/C-Spine: COMMON NORMALS: no JVD Chest: COMMONS NORMALS: normal inspection of the chest Resp: COMMON NORMALS: normal respiratory effort AUSCULTATION: crackles (Lower and middle zone) Laterality: right Cardio: COMMON NORMALS: no JVD, regular rate and regular rhythm RATE: regular rate and tachycardic RHYTHM: regular rhythm GI: COMMON NORMALS: Normal to inspection, nondistended, normoactive bowel sounds present and Soft to palpation PALPATION: Yes Soft to palpation Neuro: COMMON NORMALS: patient oriented x3 SENSORIUM/ORIENTATION: Yes alert and Yes lethargic Urinary Catheter Management^: Castaneda: Cath Placed During This Visit: yes Reason for Continuing Indwelling Catheter: Accurate Measurement of Urinary Output in Critically Ill Patients Urinary Catheter Date of Insertion: 02/17/21 Data : 02/21/21 03:35 02/21/21 03:35 Micro: Microbiology 02/17/21 16:36 Gram Stain - Final Vaginal Genital Culture - Final Strep agalactiae - (group b) 02/17/21 13:49 Urine Culture - Final Urine,Clean Catch Escherichia coli A&P Assessment and plan (1) Altered mental status: Status: Acute Qualifiers: Altered mental status type: somnolence Qualified Code(s): R40.0 - Somnolence (2) Overdose: Status: Acute Qualifiers: Encounter type: initial encounter Injury intent: undetermined intent Qualified Code(s): T50.904A - Poisoning by unspecified drugs, medicaments and biological substances, undetermined, initial encounter (3) Methamphetamine abuse: Status: Acute (4) Sepsis: Status: Acute (5) Pneumonia: Status: Acute (6) Rhabdomyolysis: Status: Acute Qualifiers: Encounter type: initial encounter Rhabdomyolysis type: traumatic Qualified Code(s): T79.6XXA - Traumatic ischemia of muscle, initial encounter (7) JINNY (acute kidney injury): Status: Acute (8) Oliguria: Status: Acute (9) Transaminitis: Status: Acute (10) Vaginal foreign body: Status: Acute (11) Metabolic acidosis: Resolved. Status: Acute (12) Acute hyperkalemia: Resolved. Status: Acute (13) Depression: Status: Acute Qualifiers: Depression Type: major depressive disorder Major depression recurrence: recurrent Active/Remission status: currently active Major depression episode severity: severe Psychotic features: without psychotic features Qualified Code(s): F33.2 - Major depressive disorder, recurrent severe without psychotic features (14) Anxiety: Status: Acute Additional A&P Information Altered mental status: Resolved. Most likely secondary to overdose of unknown subjective. Has a history of meth abuse. Can be secondary to metabolic encephalopathy due to acute kidney injury and hyperkalemia versus secondary to sepsis. Urine drug screen positive for amphetamines, benzodiazepines, marijuana, negative for alcohol, acetaminophen, salicylate. Beta-hCG negative. COVID-19 PCR negative. Appreciate psychiatric recommendations Sitter at bedside. 96-hour hold as requested by family at bedside. Patient paperwork filled in by ER. Continue with normal saline but rate dropped rate at 100 cc/h. Encourage more oral intake. Plan to stop IV fluids for the next 24 hours. Out of bed to chair. Sepsis: Resolved. Criteria met through tachycardia, altered mental status, leukocytosis. Most likely secondary to aspiration pneumonitis Cultures so far negative, urine culture pansensitive E. coli. Vagina swab showing strep. Patient remains on room air. MRSA negative. Continue Zosyn to finish a 5-day course. Day 4/5 today. Rhabdomyolysis: Severe. Resolving. Most likely because of substance abuse. IV fluid as above. Out of bed to chair. PT/OT. Recheck CPK tomorrow morning. Reposition. Acute kidney injury/acute hyperkalemia: Resolving. Hyperkalemia resolved. CT abdomen pelvis to ruled out obstructive uropathy/nephropathy. Fena-0.4%?prerenal. Fluid as above. Medical reconciliation done for nephrotoxic drugs. Robust urine output. Strict input output charting. We will plan to keep patient equal intake and output for the next 24 hours. Appreciate nephrology recommendations. Continue to monitor BMP daily. Transaminitis: Resolving. Alkaline phosphatase normal. Can be 2/2 severe rhabdomyolysis versus possible drug overdose from unknown drug vs infective vs possible congestive given H/o drug abuse in past. HIV, hepatitis panel negative. DIC panel, INR within normal limits. LDH, GGT elevated appreciated. Liver ultrasound within normal limits. Post 100 mg/kg body weight 1 dose of NAC on day of admission. Med rec done. Echocardiogram done shows an EF 50%, diffuse hypokinesia of left ventricle, poor study to evaluate for valvular abnormalities. Intra uterine foreign body: Secondary to misplaced Castaneda catheter. Appreciate transvaginal ultrasound. Depression/anxiety: As per psychiatry. Xanax 0.5 3 times daily as needed. Appreciate nephrology and psychiatry evaluation. 96-hour hold. Full liquid diet. Swallow evaluation. Heparin for DVT prophylaxis. Famotidine for PUD prophylaxis. Sitter at bedside. If patient continues to do well with improved oral intake the next 24 hours can plan to go ahead transfer to [facility] for further management. Case discussed with Dr. Montejo. Attestations Medical Necessity Statement*: Requires further hospitalization for 96-hour hold, altered mental status secondary to amphetamine abuse, severe rhabdomyolysis, improving JINNY and transaminitis Time Spent in Patient Care: Greater than 35 minutes (>than 50% of time spent in counselling and/or direct pt care on unit). Coding Level of Care Code Acute Host for [facility] Diagnoses Altered mental status R40.0 Altered mental status type: somnolence Overdose T50.904A Encounter type: initial encounter Injury intent: undetermined intent Methamphetamine abuse F15.10 Sepsis A41.9 Pneumonia J18.9 Rhabdomyolysis T79.6XXA Encounter type: initial encounter Rhabdomyolysis type: traumatic JINNY (acute kidney injury) N17.9 Oliguria R34 Transaminitis R74.01 Vaginal foreign body T19.2XXA Metabolic acidosis E87.2 Acute hyperkalemia E87.5 Depression F33.2 Depression Type: major depressive disorder Major depression recurrence: recurrent Active/Remission status: currently active Major depression episode severity: severe Psychotic features: without psychotic features Anxiety F41.9
[2021-02-21] MEDS: ALPRAZolam 0.5 mg Tablet PO ×2 (13:16→23:45)
[2021-02-21 14:47] LABS: Glucose Point of Care 85 mg/dL (70-110)
--- NOTE | 2021-02-21 15:04 | P.NPUPN_ITS ---
Subjective NPU Subjective: Interval history: Presents today continuing the same narrative as previous days. She continues to say that she is a victim of somebody slipping her something and that she is not having any thoughts to harm herself or harm anyone else. We discussed the fact that her history raises concerns otherwise however. We discussed the importance of her maintaining control and demonstrating that she can manage herself outside of the hospital which would lead to the likelihood of discharge by Wednesday but that she would likely come over to the neuropsychiatric unit once she was medically cleared. Mental Status Exam MSE Comments: This is a well-nourished, well-developed white female in hospital gown with adequate grooming and limited eye contact. No abnormal movements except for psychomotor retardation. Cooperative with exam in no mild to moderate distress. Speech was decreased rate and volume. Mood described as fine, affect labile. Thought process organized. Thought content: Patient denied suicidal or homicidal ideation, there were no delusions reported or noted, she denied any auditory or visual hallucinations. Attention and concentration were intact and memory appeared reliable but none were formally tested. She is alert and oriented x3. Insight and judgment were limited, impulse control is limited. Vitals/I&O/Wt Last Vital Signs Temp 98.7 F 02/20/21 20:00 Pulse 83 02/21/21 14:00 Resp 16 02/21/21 14:00 BP 130/74 02/21/21 14:00 Pulse Ox 99 02/21/21 04:16 02/21/21 02/21/21 02/21/21 06:59 14:59 22:59 Intake Total 1641.667 / 5181.667 470 / 470 Output Total 850 / 2050 Balance 791.667 / 3131.667 470 / 470 Weight last 48 hrs Weight 64.093 kg Weight 66.395 kg Physical Exam Urinary Catheter Management^: Castaneda: Cath Placed During This Visit: yes Reason for Continuing Indwelling Catheter: Accurate Measurement of Urinary Output in Critically Ill Patients Urinary Catheter Date of Insertion: 02/17/21 Data NPU : 02/22/21 Unknown 02/21/21 03:35 Micro: Microbiology 02/17/21 16:36 Gram Stain - Final Vaginal Genital Culture - Final Strep agalactiae - (group b) 02/17/21 13:49 Urine Culture - Final Urine,Clean Catch Escherichia coli Microbiology 02/17/21 16:36 Vaginal Gram Stain - Final 02/17/21 16:36 Vaginal Genital Culture - Final Strep agalactiae - (group b) 02/17/21 13:49 Urine,Clean Catch Urine Culture - Final Escherichia coli A&P Additional A&P Information (1) Altered mental status: (2) Overdose: (3) Methamphetamine abuse: (4) Transaminitis: (5) Metabolic acidosis: (6) JINNY (acute kidney injury): (7) Sepsis: (8) Acute hyperkalemia: (9) Pneumonia: (10) Vaginal foreign body: (11) Anxiety: (12) Depression: (13) Rhabdomyolysis: (14) Oliguria: Additional A&P Information This is a 35-year-old female with apparent overdose of some substance causing prolonged somnolence. She is known to this radio script writer through previous encounters and denied culpability with the last encounter and he is to report that she is the victim of someone else's behavior and not her own choices and is lobbying to be discharged soon as possible. 1. Continue current medication. 2. Continue 1-1 monitoring. 3. We will continue following. 4. Encourage sober living treatment after discharge at the highest level of care to which he is willing to commit. 5. We will consider transfer to the neuropsychiatric unit versus discharge when she is medically cleared. Involuntary Hold Information 96 Hour Hold: 96 Hour Involuntary Admission: Yes 96 Hour Hold Ending Date: 05/22/20 96 Hour Hold Ending Time: 15:46 Attestations NPU Medical Necessity Statement*: N/A. Please see primary team note for medical necessity and will evaluate for need for psychiatric care after medical clearance. Coding Level of Care Code Acute Patrol Police Sergeant for Royce De La Vega
[2021-02-21 15:52] LABS: Creatine Phosphokinase 6824 U/L (26-192)
[2021-02-21 16:47] LABS: Bacterial Vaginosis BV TMA POSITIVE (NEGATIVE)
[2021-02-21 19:17] LABS: Glucose Point of Care 128 mg/dL (70-110)
[2021-02-21 23:55] LABS: Glucose Point of Care 77 mg/dL (70-110)
[2021-02-22] VITALS (17 sets, daily range): BP systolic 104–142; BP diastolic 55–90; PULSE 81–110; RESP 14–20; TEMP 36.3–36.6; O2SAT 94–100; BMI 26.8
[2021-02-22] MEDS: piperacillin-tazobactam 3.375 GM in sodium chloride 0.9% (plus) 50 ML IV ×2 (00:29→08:23)
[2021-02-22] MEDS: acetaminophen 325 mg Tablet 650 MG PO ×3 (02:37→12:43)
[2021-02-22] MEDS: heparin 5,000 unit/mL INJ 1 mL 5000 UNIT SUBCUT (02:38)
[2021-02-22 02:55] LABS: Glucose Point of Care 97 mg/dL (70-110)
[2021-02-22 04:14] LABS: Basophils % 0.2 %; Eosinophils # 0.2 10^3/uL (0.0-0.8); Eosinophils % 2.7 %; Hematocrit 28.9 % (37.0-47.0); Hemoglobin 9.5 g/dL (11.5-15.3); Lymphocytes # 1.1 10^3/uL (0.8-4.8); Lymphocytes % 13.3 %; Mean Corpuscular HGB Conc 32.9 g/dL (30.0-36.0); Mean Corpuscular Hemoglobin 28.4 pg (28.0-34.0); Mean Corpuscular Volume 86.5 fl (81-99); Monocytes # 0.8 10^3/uL (0.2-0.9); Monocytes % 10.3 %; Neutrophils # 5.84 10^3/uL (1.8-7.7); Neutrophils % 71.9 %; Nucleated Red Blood Cells % 0 %; Platelet Count 152 10^3/cmm (130-400); Red Blood Count 3.34 10^6/uL (4.1-5.3); White Blood Count 8.1 10^3/uL (4.0-10.0)
[2021-02-22] MEDS: sodium chloride 0.9% 1,000 ML 100 ML IV (06:23)
[2021-02-22 06:53] LABS: Creatine Phosphokinase 4123 U/L (26-192)
[2021-02-22] MEDS: potassium bicarb 25 mEq Tablet 50 MEQ PO ×2 (08:23→19:24)
[2021-02-22] MEDS: famotidine 20 mg/2 mL INJ IVP (08:24)
--- NOTE | 2021-02-22 10:55 | PC.NURSE ---
Dr low here with ok to trantoshia to [facility] verified with Dr Montejo....
--- NOTE | 2021-02-22 11:52 | P.PN_ITS ---
Subjective Subjective: Interval history: No acute events overnight. Sitting in chair today. Sitter at bedside. Awake alert having complete conversation. Asking why does she have to stay in the hospital till February 24. Asking why is a 96- hour hold ending till February 24. Stating that she has a court date on Wednesday which she needs to attend. States she is finally getting power back in her leg and is able to feel her foot again. Denies any tingling and numbing in her leg now. Vitals/I&O/Wt Last Vital Signs Temp 97.3 F L 02/22/21 00:00 Pulse 100 02/22/21 10:00 Resp 16 02/22/21 10:00 BP 128/90 02/22/21 10:00 Pulse Ox 96 02/22/21 08:21 02/21/21 02/22/21 02/22/21 22:59 06:59 14:59 Intake Total 450 / 920 1143.333 / 2063.333 350 / 350 Output Total 1000 / 1000 Balance 450 / 920 143.333 / 1063.333 350 / 350 Weight last 48 hrs Weight 68.674 kg Weight 64.093 kg Physical Exam Const: COMMON NORMALS: no acute distress, average body habitus, patient oriented x3 and alert EXAM LIMITATIONS: altered mental status GENERAL APPEARANCE: lethargic and ill appearing ORIENTATION/CONSCIOUSNESS: Yes lethargic Eye: COMMON NORMALS: Equal, round and reactive pupils present and EOMs intact bilaterally PUPIL: Yes Equal, round and reactive pupils present, Yes Pupil accommodation reflex normal and Yes Pinpoint pupils Neck/C-Spine: COMMON NORMALS: no JVD Chest: COMMONS NORMALS: normal inspection of the chest Resp: COMMON NORMALS: normal respiratory effort AUSCULTATION: crackles (Lower and middle zone) Laterality: right Cardio: COMMON NORMALS: no JVD, regular rate and regular rhythm RATE: regular rate and tachycardic RHYTHM: regular rhythm GI: COMMON NORMALS: Normal to inspection, nondistended, normoactive bowel sounds present and Soft to palpation PALPATION: Yes Soft to palpation Neuro: COMMON NORMALS: patient oriented x3 SENSORIUM/ORIENTATION: Yes alert and Yes lethargic Urinary Catheter Management^: Castaneda: Cath Placed During This Visit: yes Reason for Continuing Indwelling Catheter: Accurate Measurement of Urinary Output in Critically Ill Patients Urinary Catheter Date of Insertion: 02/17/21 Data : 02/22/21 Unknown 02/21/21 03:35 A&P Assessment and plan (1) Altered mental status: Status: Acute Qualifiers: Altered mental status type: somnolence Qualified Code(s): R40.0 - Somnolence (2) Overdose: Status: Acute Qualifiers: Encounter type: initial encounter Injury intent: undetermined intent Qualified Code(s): T50.904A - Poisoning by unspecified drugs, medicaments and biological substances, undetermined, initial encounter (3) Methamphetamine abuse: Status: Acute (4) Sepsis: Status: Acute (5) Pneumonia: Status: Acute (6) Rhabdomyolysis: Status: Acute Qualifiers: Encounter type: initial encounter Rhabdomyolysis type: traumatic Qualified Code(s): T79.6XXA - Traumatic ischemia of muscle, initial encounter (7) JINNY (acute kidney injury): Status: Acute (8) Oliguria: Status: Acute (9) Transaminitis: Status: Acute (10) Vaginal foreign body: Status: Acute (11) Metabolic acidosis: Resolved. Status: Acute (12) Acute hyperkalemia: Resolved. Status: Acute (13) Depression: Status: Acute Qualifiers: Depression Type: major depressive disorder Major depression recurrence: recurrent Active/Remission status: currently active Major depression episode severity: severe Psychotic features: without psychotic features Qualified Code(s): F33.2 - Major depressive disorder, recurrent severe without psychotic features (14) Anxiety: Status: Acute Additional A&P Information Altered mental status: Resolved. Most likely secondary to overdose of unknown subjective. Has a history of meth abuse. Can be secondary to metabolic encephalopathy due to acute kidney injury and hyperkalemia versus secondary to sepsis. Urine drug screen positive for amphetamines, benzodiazepines, marijuana, negative for alcohol, acetaminophen, salicylate. Beta-hCG negative. COVID-19 PCR negative. Appreciate psychiatric recommendations Sitter at bedside. 96-hour hold as requested by family at bedside. Patient paperwork filled in by ER. Continue to encourage to drink oral fluids well. Transfer to [facility] once okay with Dr. Montejo. Patient medically cleared. Sepsis: Resolved. Criteria met through tachycardia, altered mental status, leukocytosis. Most likely secondary to aspiration pneumonitis Cultures so far negative, urine culture pansensitive E. coli. Vagina swab showing strep. Patient remains on room air. MRSA negative. Finished Zosyn 5 day course today. Rhabdomyolysis: Resolving. CPK down to 4000 from 32,000. Most likely because of substance abuse. Continue to encourage oral fluid intake. Out of bed to chair. Recheck CPK every 48 hours Reposition. Acute kidney injury/acute hyperkalemia: Resolving. Hyperkalemia resolved. CT abdomen pelvis to ruled out obstructive uropathy/nephropathy. Fena-0.4%?prerenal. Fluid as above. Medical reconciliation done for nephrotoxic drugs. Has maintained good urine output. Continue to encourage good oral intake. Appreciate nephrology recommendations. Continue to monitor BMP 48 hours. Transaminitis: Resolving. Alkaline phosphatase normal. Can be 2/2 severe rhabdomyolysis versus possible drug overdose from unknown drug vs infective vs possible congestive given H/o drug abuse in past. HIV, hepatitis panel negative. DIC panel, INR within normal limits. LDH, GGT elevated appreciated. Liver ultrasound within normal limits. Post 100 mg/kg body weight 1 dose of NAC on day of admission. Med rec done. Echocardiogram done shows an EF 50%, diffuse hypokinesia of left ventricle, poor study to evaluate for valvular abnormalities. Intra uterine foreign body: Secondary to misplaced Castaneda catheter. Appreciate transvaginal ultrasound. Depression/anxiety: As per psychiatry. Xanax 0.5 3 times daily as needed. Appreciate nephrology and psychiatry evaluation. 96-hour hold. Full liquid diet. Swallow evaluation. Heparin for DVT prophylaxis. Famotidine for PUD prophylaxis. Sitter at bedside. Patient is medically cleared to be transferred to [facility]. Should have CPK and CMP checked every 48 hours. Should encourage to drink good oral intake up to 2 to 3 L daily. Will continue to monitor peripherally. Continue with physical therapy. Attestations Medical Necessity Statement*: Can transfer to [facility]. Will require continued hospitalization for psychiatric issues, 96-hour hold, resolving rhabdomyolysis and JINNY Time Spent in Patient Care: Greater than 35 minutes (>than 50% of time spent in counselling and/or direct pt care on unit) . Coding Level of Care Code Acute [employer] for Royce De La Vega Diagnoses Altered mental status R40.0 Altered mental status type: somnolence Overdose T50.904A Encounter type: initial encounter Injury intent: undetermined intent Methamphetamine abuse F15.10 Sepsis A41.9 Pneumonia J18.9 Rhabdomyolysis T79.6XXA Encounter type: initial encounter Rhabdomyolysis type: traumatic JINNY (acute kidney injury) N17.9 Oliguria R34 Transaminitis R74.01 Vaginal foreign body T19.2XXA Metabolic acidosis E87.2 Acute hyperkalemia E87.5 Depression F33.2 Depression Type: major depressive disorder Major depression recurrence: recurrent Active/Remission status: currently active Major depression episode severity: severe Psychotic features: without psychotic features Anxiety F41.9
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
[2021-02-22 16:14] LABS: Creatine Phosphokinase 4280 U/L (26-192)
[2021-02-22] MEDS: famotidine 20 mg Tablet PO (20:23)
[2021-02-22] MEDS: hyDROXYzine 25 mg Capsule 50 MG PO (20:29)
[2021-02-22] MEDS: trazodone 50 mg Tablet PO (20:29)
--- NOTE | 2021-02-22 20:37 | PC.NURSE ---
Pt requested meds for sleep and anxiety. Trazodone 50mg po for sleep and Vistaril 50mg po for anxiety given.
[2021-02-23] MEDS: acetaminophen 325 mg Tablet 650 MG PO ×2 (00:04→19:33)
[2021-02-23] MEDS: OLANZapine 5 mg ODT PO (01:39)
[2021-02-23] MEDS: ibuprofen 800 mg tablet PO (01:39)
[2021-02-23 06:00] VITALS: BP 129/69; PULSE 100; RESP 18; TEMP 36.4; O2SAT 100; BMI 26.8
[2021-02-23 08:00] VITALS: BP 129/69; PULSE 100; RESP 18; TEMP 36.4
[2021-02-23 08:18] LABS: Basophils % 0.4 %; Eosinophils # 0.2 10^3/uL (0.0-0.8); Eosinophils % 2.6 %; Hematocrit 29.3 % (37.0-47.0); Hemoglobin 9.4 g/dL (11.5-15.3); Lymphocytes # 1.2 10^3/uL (0.8-4.8); Lymphocytes % 15.7 %; Mean Corpuscular HGB Conc 32.1 g/dL (30.0-36.0); Mean Corpuscular Hemoglobin 28.4 pg (28.0-34.0); Mean Corpuscular Volume 88.5 fl (81-99); Mean Platelet Volume 9.7 fL (7.4-10.4); Monocytes # 0.8 10^3/uL (0.2-0.9); Monocytes % 9.9 %; Neutrophils # 5.17 10^3/uL (1.8-7.7); Neutrophils % 68.1 %; Nucleated Red Blood Cells % 0 %; Platelet Count 149 10^3/cmm (130-400); Red Blood Count 3.31 10^6/uL (4.1-5.3); Red Cell Distribution Width 15.9 % (12.1-15.1); White Blood Count 7.6 10^3/uL (4.0-10.0)
[2021-02-23 08:31] LABS: Alanine Aminotransferase 147 U/L (0-33); Albumin Level 2.4 g/dL (3.5-5.2); Alkaline Phosphatase 80 IU/L (35-105); Anion Gap 15.4 (5-19); Aspartate Amino Transferase 165 U/L (0-32); Blood Urea Nitrogen 29 mg/dL (6-20); Calcium 7.5 mg/dL (8.5-10.5); Carbon Dioxide 21 mmol/L (22-29); Chloride 109 mmol/L (98-107); Globulin 2.2 g/dL (1.3-4.6); Glomerular Filtration Rate 25.6 mL/min (90-130); Glucose 88 mg/dL (65-115); Osmolality Calculated 297 mOsm/kg (285-295); Potassium 4.4 mmol/L (3.5-5.1); Sodium 141 mmol/L (136-145); Total Bilirubin 0.3 mg/dL (0.15-1.2); Total Protein 4.6 g/dL (6.6-8.7)
[2021-02-23] MEDS: famotidine 20 mg Tablet PO ×2 (09:00→18:42)
[2021-02-23] MEDS: ALPRAZolam 0.5 mg Tablet PO (09:00)
[2021-02-23] MEDS: potassium bicarb 25 mEq Tablet 50 MEQ PO ×2 (09:01→18:42)
[2021-02-23] MEDS: fluoxetine 20 mg Capsule PO (11:54)
[2021-02-23] MEDS: ARIPiprazole 10 mg Tablet PO (11:54)
[2021-02-23 14:00] VITALS: BP 129/69; PULSE 100; RESP 18; TEMP 36.4; O2SAT 100
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
[2021-02-23] MEDS: trazodone 50 mg Tablet PO (19:33)
[2021-02-23] MEDS: hyDROXYzine 25 mg Capsule 50 MG PO (19:33)
[2021-02-23 20:05] VITALS: BP 133/81; PULSE 94; RESP 17; TEMP 36.9; O2SAT 100
[2021-02-24 06:00] VITALS: BP 144/81; PULSE 89; RESP 17; TEMP 37.2; O2SAT 100
[2021-02-24 07:53] VITALS: BP 144/81; PULSE 89; RESP 17; TEMP 37.2
[2021-02-24] MEDS: famotidine 20 mg Tablet PO (09:03)
[2021-02-24] MEDS: fluoxetine 20 mg Capsule PO (09:03)
[2021-02-24] MEDS: ARIPiprazole 10 mg Tablet PO (09:03)
[2021-02-24] MEDS: potassium bicarb 25 mEq Tablet 50 MEQ PO (09:12)
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
[2021-02-24 10:41] VITALS: BP 144/81; PULSE 89; RESP 17; TEMP 37.2
== END 2021-02-24 11:38 | disposition home or self-care (01) | DRG 917 ==
LOC: ER 14:04 → ICU 16:07 → NP 02-22 11:19
PROVIDERS: Internal Medicine Nephrology; Obstetrics & Gynecology; Student in an Organized Health Care Education/Training Program; Admitting Provider Internal Medicine; Emergency Provider Emergency Medicine; Visit Provider Psychiatry & Neurology Psychiatry
DX: T50.904A Poisoning by unspecified drugs, medicaments and biological substances, undetermined, initial encounter (principal); J69.0 Pneumonitis due to inhalation of food and vomit; A41.9 Sepsis, unspecified organism; F15.20 Other stimulant dependence, uncomplicated; N17.9 Acute kidney failure, unspecified; E87.2 Acidosis; F33.2 Major depressive disorder, recurrent severe without psychotic features; T79.6XXA Traumatic ischemia of muscle, initial encounter; X58.XXXA Exposure to other specified factors, initial encounter; F41.9 Anxiety disorder, unspecified; T19.2XXA Foreign body in vulva and vagina, initial encounter; R40.0 Somnolence; R74.01 Elevation of levels of liver transaminase levels; K21.9 Gastro-esophageal reflux disease without esophagitis; E87.5 Hyperkalemia; E16.2 Hypoglycemia, unspecified; F12.90 Cannabis use, unspecified, uncomplicated; F13.90 Sedative, hypnotic, or anxiolytic use, unspecified, uncomplicated; B95.1 Streptococcus, group B, as the cause of diseases classified elsewhere; B96.20 Unspecified Escherichia coli [E. coli] as the cause of diseases classified elsewhere; Z62.810 Personal history of physical and sexual abuse in childhood; Z98.84 Bariatric surgery status; Z63.8 Other specified problems related to primary support group; Z81.4 Family history of other substance abuse and dependence
CPT/HCPCS: 36415; 36416; 36600; 70450; 71045; 72131; 74176; 76705; 76830; 76856; 80048; 80051; 80053; 80061; 80202; 80306; 80307; 81001; 82140; 82330; 82436; 82550; 82575; 82805; 82962; 82977; 83036; 83540; 83550; 83605; 83615; 83690; 83930; 84133; 84145; 84300; 84443; 84484; 84703; 85025; 85362; 85378; 85384; 85610; 85730; 86403; 86592; 86705; 86706; 86709; 86803; 87040; 87070; 87077; 87086; 87186; 87205; 87340; 87449; 87512; 87631; 87635; 87641; 87799; 87806; 93005; 93306; 94640; 96361; 96372; 96374; 97110; 97116; 97161; 97165; 97530; 99291; E0352; J0132; J0456; J0610; J0696; J1644; J1756; J1815; J1940; J2060; J2310; J2543; J3105; J3370; J3490; J7030; J7040; J7050; L1930; Q3014

== ENCOUNTER 2021-03-21 14:21 | Emergency (ER) | payer OTHER, SELFPAY ==
[2021-03-21 14:32] VITALS: BP 135/74; PULSE 117; RESP 16; TEMP 36.7; O2SAT 100
--- NOTE | 2021-03-21 14:42 | ED_ITS ---
HPI - Extremity Problem General: Chief complaint: Extremity Injury, Lower Stated complaint: LEFT FOOT PAIN Time Seen by Provider: 03/21/21 14:30 History of Present Illness: Patient says the base of her left foot is hurting last couple days. It hurts to put weight on it. Associated symptoms: Deny chest pain, fever(s) or rash Review of Systems Const: Denies: fever(s), chills or body aches Eyes: Denies: eye discomfort ENMT: Denies: throat pain Card: Reports: dyspnea on exertion; Denies: chest pain Resp: Denies: dyspnea GI: Reports: nausea and vomiting; Denies: abdominal pain Musc: Reports: extremity pain (Left foot has been hurting couple days hurts at the base. Hurts when she g) Skin/Breast: Denies: rash Neuro: Denies: headache(s) Psych: Denies: depression or suicidal ideation [facility] ED PFSH: Medical History (Updated 03/21/21 @ 14:42 by MELLY Reveles) Anxiety Diagnosed in about 2015 and she used to take alprazolam as needed for this. She states that she currently has a therapist whom she talks to and this helps. She follows with her primary care provider Dr. Farr Depression GERD (gastroesophageal reflux disease) Methamphetamine abuse No pertinent past medical history Denies diabetes, asthma, hypertension, seizures, DVT/PE PMD-Dr. Farr Psychiatric care Surgical History (Updated 02/17/21 @ 16:55 by Dennis Rosario MD) History of esophagogastroduodenoscopy (EGD) 06/2019 History of tonsillectomy 06/2019 at the age of [address] Brito as this was thought to contribute to sleep apnea History of tubal ligation post tubal ligation by Dr. Quiroz at [facility]. 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 S/P wisdom tooth extraction Family History Father Diabetes Family/Other Diabetes maternal aunt Grandmother Diabetes maternal Stroke paternal Grandfather Stroke paternal and maternal Denies family history of Cervical cancer Colon cancer Ovarian cancer DVT (deep venous thrombosis) Heart disease Hyperlipidemia Breast cancer Anesthesia complication Bleeding disorder Pulmonary embolism Hypertension Uterine cancer Thyroid condition Social History (Reviewed 09/01/20 @ 15:24 by Alanis Che Smoking and tobacco status: current every day smoker Alcohol intake: never Adopted: No Caregiver/support person: Yes Lives independently: Yes Household members: spouse Housing: House service: No Current occupational status: employed Pets and animals: No History of recent travel: No Sexually active: No Special christiano needs: No Additional social history: - Tobacco Use: Denies current or past use Drug Use: Used marijuana a couple of times as a teenager; denies any other drug use Alcohol Use: Denies 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 Female Reproductive History: Date of last menstrual period: 05/09/20 Physical Exam Const: COMMON NORMALS: no acute distress, patient oriented x3 and alert HENMT: COMMON NORMALS: normocephalic HEAD & SCALP: normocephalic Eye: COMMON NORMALS: EOMs intact bilaterally Neck/C-Spine: COMMON NORMALS: no JVD Resp: COMMON NORMALS: normal respiratory effort and No use of accessory muscles Cardio: COMMON NORMALS: no JVD GI: INSPECTION: Yes normal to inspection Extremity: COMMON NORMALS: normal to inspection and full ROM LEFT LOWER EXTREMITY: Yes foot & digits (Tenderness to the arch of the foot, no redness swelling. No swelling noted) Neuro: COMMON NORMALS: patient oriented x3 SENSORIUM/ORIENTATION: Yes alert Psych: COMMON NORMALS: mental status grossly normal Skin: COMMON NORMALS: no rashes or lesions noted GENERAL SKIN EXAM: no rashes or lesions noted Course Vital Signs: Vital signs: Vital Signs Temperature 98.1 F 03/21/21 14:32 Pulse Rate 117 H 03/21/21 14:32 Respiratory Rate 16 03/21/21 14:32 Blood Pressure 135/74 03/21/21 14:32 Pulse Oximetry 115 H 03/21/21 14:32 MDM - Extremity (Nontraumatic) Medical Decision Making Patient appears to have plantar fasciitis. Instructions were provided. Discharge Plan Discharge Patient Disposition: Home Clinical Impression: Plantar fasciitis of left foot Condition: Stable Prescriptions: New Voltaren Arthritis Pain 1 % gel 4 g topical QID Qty: 100 0RF Rx Instructions: apply to single knee, ankle, foot; for foot includes sole/toes/top of foot No Action alprazolam 0.5 mg Tablet 0.5 mg PO TID PRN (Reason: Agitation) 15 Days Qty: 45 1RF fluoxetine 20 mg Capsule 20 mg PO DAILY 30 Days Qty: 30 1RF Effer-K 25 mEq Tablet, Effervescent 50 meq PO BID 30 Days Qty: 120 1RF aripiprazole 10 mg Tablet 10 mg PO DAILY 30 Days Qty: 30 1RF Discharge Orders: Discharge ED (Routine); Ordered 03/21/21 Ordered By: Willem Bhakta Referrals: Baldemar Rivero MD [Primary Care Provider] - Discharge Diet: Usual diet Discharge Activity: Increase activity as tolerated Patient Instructions: Plantar Fasciitis (ED) Activity Restrictions/Additional Instructions: Follow-up with medical provider as directed. Take medications as prescribed. Return to the ER or your medical provider if condition worsens. Please read and understand discharge instructions. If any questions ask please. Make sure that you wear shoes with good arch support. Coding Level of Care Code ED Rug Renovator for Felixg Fwd Exam Comprehensive
== END 2021-03-21 15:27 | disposition home or self-care (01) ==
PROVIDERS: Emergency Provider Nurse Practitioner Family; PCP Family Medicine
DX: M72.2 Plantar fascial fibromatosis (principal); F17.210 Nicotine dependence, cigarettes, uncomplicated
CPT/HCPCS: 99282

== ENCOUNTER 2021-04-23 11:49 | Emergency (ER) | payer OTHER, SELFPAY ==
[2021-04-23 12:11] VITALS: BP 134/73; PULSE 109; RESP 18; TEMP 36.7; O2SAT 99; BMI 19.1
[2021-04-23 13:15] LABS: Glucose Urine UA Norm (Normal); Ketones Urine Negative (Negative); Protein Urine Neg (Negative); Specific Gravity, Urine 1.025 (1.005-1.030); Urine Appearance Cloudy (CLEAR); Urine Color Yellow (Yellow); pH Urine 6 (5-7)
[2021-04-23 13:16] LABS: Add Urine Microscopic? YES; Bilirubin Urine Neg (Negative); Blood Urine 2+ (Negative); Leukocyte Esterase Urine 1+ (Negative); Nitrate Urine Negative (Negative); Urobilinogen Urine 1 mg/dL (Negative)
[2021-04-23 13:26] LABS: HCG Qualitative Urine. Negative (Negative)
[2021-04-23 13:32] LABS: Bacteria Urine 3+ /hpf; Coarse Granular Casts Urine 0-4 /lpf; Mucus Urine TRACE /hpf; WBC Urine 25-40 /hpf (0-5)
[2021-04-23 13:33] LABS: Add Urine Culture? Yes
== END 2021-04-23 13:10 ==
LOC: ER 12:10
PROVIDERS: Emergency Medicine; Emergency Provider Family Medicine; PCP Family Medicine
DX: Z53.21 Procedure and treatment not carried out due to patient leaving prior to being seen by health care provider (principal)
CPT/HCPCS: 81001; 81025; 87077; 87086; 87186

== ENCOUNTER 2021-06-06 00:25 | Inpatient (IN) | payer OTHER, SELFPAY ==
[2021-06-06 00:26] VITALS: BP 132/80; PULSE 107; RESP 20; TEMP 36.2; O2SAT 100; BMI 19.3
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
[2021-06-06 01:22] LABS: Basophils % 0.3 %; Hematocrit 39.1 % (37.0-47.0); Hemoglobin 12.9 g/dL (11.5-15.3); Lymphocytes % 8.4 %; Mean Corpuscular Hemoglobin 29.4 pg (28.0-34.0); Mean Corpuscular Volume 89.1 fl (81-99); Mean Platelet Volume 8.8 fL (7.4-10.4); Monocytes # 0.7 10^3/uL (0.2-0.9); Monocytes % 5.5 %; Neutrophils # 10.13 10^3/uL (1.8-7.7); Neutrophils % 85.5 %; Nucleated Red Blood Cells % 0 %; Platelet Count 290 10^3/cmm (130-400); Red Blood Count 4.39 10^6/uL (4.1-5.3); Red Cell Distribution Width 11.8 % (12.1-15.1); White Blood Count 11.8 10^3/uL (4.0-10.0)
[2021-06-06] MEDS: iodixanol 320 mg/mL 100mL Btl IV ×2 (01:33)
[2021-06-06 01:40] LABS: HCG, Serum Qual Negative (Negative)
[2021-06-06 01:47] LABS: Lactic Sepsis W/Reflex 1.5 mmol/L (0.5-2.2)
[2021-06-06 01:48] LABS: Alanine Aminotransferase 31 U/L (0-33); Albumin Level 4.7 g/dL (3.5-5.2); Alkaline Phosphatase 73 IU/L (35-105); Anion Gap 18.1 (5-19); Aspartate Amino Transferase 24 U/L (0-32); Blood Urea Nitrogen 15 mg/dL (6-20); Calcium 8.8 mg/dL (8.5-10.5); Carbon Dioxide 23 mmol/L (22-29); Chloride 102 mmol/L (98-107); Creatine Phosphokinase 233 U/L (26-192); Globulin 2.2 g/dL (1.3-4.6); Glomerular Filtration Rate 63.5 mL/min (90-130); Glucose 87 mg/dL (65-115); Osmolality Calculated 290 mOsm/kg (285-295); Potassium 3.1 mmol/L (3.5-5.1); Sodium 140 mmol/L (136-145); Total Bilirubin 0.6 mg/dL (0.15-1.2); Total Protein 6.9 g/dL (6.6-8.7)
[2021-06-06 02:13] LABS: Amphetamines Screen Urine Positive (Negative); Barbiturates Screen Urine Negative (Negative); Benzodiazepines Screen Urine Negative (Negative); Cocaine Screen Urine Negative (Negative); Opiate Screen Urine Negative (Negative); PCP Screen Urine Negative (Negative); THC Screen Urine Negative (Negative)
[2021-06-06 02:13] LABS: Acetaminophen < 5.0 ug/mL (10-30); Alcohol Level < 10 mg/dL (0-10); Salicylate < 0.3 mg/dL (3-10)
[2021-06-06] MEDS: sodium chloride 0.9% 1,000 ML 999 ML IV (02:18)
[2021-06-06 02:19] VITALS: BP 131/55; PULSE 106; RESP 16; O2SAT 100
[2021-06-06 02:36] LABS: Add Urine Microscopic? YES; Bilirubin Urine Neg (Negative); Blood Urine Neg (Negative); Glucose Urine UA Norm (Normal); Ketones Urine 1+ (Negative); Leukocyte Esterase Urine 2+ (Negative); Nitrate Urine Negative (Negative); Protein Urine Neg (Negative); Urine Appearance Clear (CLEAR); Urine Color Yellow (Yellow); Urobilinogen Urine Norm (Negative); pH Urine 6 (5-7)
[2021-06-06 02:37] LABS: Add Urine Culture? No; Bacteria Urine 1+ /hpf; Mucus Urine 1+ /hpf; RBC Urine 0-4 /hpf (0-2); WBC Urine 15-25 /hpf (0-5)
[2021-06-06 03:42] LABS: Magnesium 2.2 mg/dL (1.7-2.3)
[2021-06-06] MEDS: haloperidol 5 mg Tablet PO (04:27)
[2021-06-06 04:31] VITALS: BP 117/67; PULSE 114; RESP 18; TEMP 36.4; O2SAT 95
[2021-06-06] MEDS: diphenhydrAMINE 50 mg Capsule PO (04:53)
[2021-06-06] MEDS: LORazepam 2 mg Tablet PO (04:53)
[2021-06-06] MEDS: diphenhydrAMINE 50 mg/mL SDV 1mL IM (05:22)
[2021-06-06] MEDS: haloperidol inj 5 mg/mL INJ 1 mL IM (05:23)
[2021-06-06] MEDS: LORazepam 2 mg/mL INJ 1 mL IM (05:23)
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
[2021-06-06 06:00] VITALS: BP 117/67; PULSE 114; RESP 18; TEMP 36.4; O2SAT 95
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
--- NOTE | 2021-06-06 13:48 | PC.NURSE ---
PT HAS HAD DISORGANIZED THOUGHT PROCESS. FLIGHTS OF IDEAS NOTED. SPEECH IS RAPID, RAMBLING AND JUMPS FROM TOPIC TO TOPIC QUICKLY. PT REMAINS PARANOID. STAFF OFFERING FREQUENT REDIRECTION AND EDUCATION.
[2021-06-06 14:00] VITALS: BP 103/68; PULSE 80; RESP 20; TEMP 36.5; O2SAT 100
[2021-06-06] MEDS: OLANZapine 5 mg ODT PO (15:03)
--- NOTE | 2021-06-06 15:53 | PC.NURSE ---
pt up to nurses station in [facility], very agitated concerning not being with her children for [place], pt was given prn zydis and was compliant with taking
--- NOTE | 2021-06-06 16:52 | PC.SOCIAL ---
Patient did not attend group.
[2021-06-06 20:19] VITALS: BP 86/51; PULSE 92; RESP 16; O2SAT 98
[2021-06-07 06:00] VITALS: BP 109/69; PULSE 72; RESP 16; O2SAT 97
[2021-06-07] MEDS: fluoxetine 20 mg Capsule PO (08:40)
[2021-06-07] MEDS: potassium chloride ER 10 mEq Tablet PO (08:40)
[2021-06-07] MEDS: ARIPiprazole 10 mg Tablet PO (08:40)
--- NOTE | 2021-06-07 08:46 | W.PM.NPUPNS ---
Subjective NPU Subjective: She is adamant that she has been clean from drugs for the last 3 weeks. She is confident that she did not use methamphetamine recently. She says somebody must have given her something. She actually does not realize that she was high on methamphetamine yesterday. He is a adamant that she needs to go home to be with her children. Their father keeps them from her and she only can see them every other weekend. They were really looking forward to [facility]. She missed Thanksgiving and [place] because of her drug use. She asked over and over again if she could go home today. She promises that she will never use methamphetamine again. She is going to do what ever it takes to make things right with her children. Mental Status Exam MSE Comments: This is a 35-year-old thin female who appears a little older than her stated age. She was cooperative with the evaluation. Her grooming is fair psychomotor activity is normal. Speech is at a regular rate and rhythm, normal volume, good articulation, not pressured. Alert, oriented X3 Attention and concentration appears to be normal. Memory is intact Mood is depressed because she cannot see her children. Affect is tearful. Thought process is logical and goal-directed. Thought content: Denies auditory and visual hallucinations. No delusions or paranoia are noted. No current suicidal ideation, and no homicidal ideation. Fund of knowledge is difficult to discern. Insight and judgment appear to be very poor. Impulse control is very poor. Vitals/I&O/Wt Last Vital Signs Temp 97.7 F 06/06/21 14:00 Pulse 72 06/07/21 06:00 Resp 16 06/07/21 06:00 BP 109/69 06/07/21 06:00 Pulse Ox 97 06/07/21 06:00 Weight last 48 hrs Weight 49.442 kg Data NPU : 06/06/21 01:08 06/06/21 01:08 A&P Assessment and plan (1) Acute psychosis: Status: Acute (2) Depression: Status: Acute Qualifiers: Depression Type: major depressive disorder Major depression recurrence: recurrent Active/Remission status: currently active Major depression episode severity: severe Psychotic features: without psychotic features Qualified Code(s): F33.2 - Major depressive disorder, recurrent severe without psychotic features (3) Methamphetamine abuse: Status: Acute Plan This is a 35-year-old female who comes in psychotic on methamphetamine again. Plan: 1. Continue current medication. 2. Continue every 15 minute checks for safety. 3. Encourage individual, group and milieu therapies. 4. Encourage sober living treatment after discharge at the highest level of care to which she is willing to commit. 5. We will monitor for safety for herself in the community prior to discharge. Involuntary Hold Information 96 Hour Hold: 96 Hour Involuntary Admission: Yes 96 Hour Hold Ending Date: 06/12/21 96 Hour Hold Ending Time: 00:25 Attestations NPU Medical Necessity Statement*: Inpatient hospitalization is medically necessary and the clinically appropriate intervention at this time. We will initiate medications and make changes as indicated. Coding Level of Care Code Acute [employer]imney Construction Supervisor for Royce De La Vega Diagnoses Acute psychosis F23 Depression F33.2 Depression Type: major depressive disorder Major depression recurrence: recurrent Active/Remission status: currently active Major depression episode severity: severe Psychotic features: without psychotic features Methamphetamine abuse F15.10
[2021-06-07] MEDS: hyDROXYzine 25 mg Capsule 50 MG PO (08:59)
[2021-06-07 14:00] VITALS: BP 97/62; PULSE 93; RESP 18; TEMP 36.6; O2SAT 98
[2021-06-07 20:07] VITALS: BP 93/50; PULSE 90; RESP 18; TEMP 36.6; O2SAT 97
[2021-06-08 06:00] VITALS: BP 116/56; PULSE 91; RESP 18; TEMP 36.8; O2SAT 99
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
[2021-06-08] MEDS: ARIPiprazole 10 mg Tablet PO (08:01)
[2021-06-08] MEDS: fluoxetine 20 mg Capsule PO (08:01)
[2021-06-08] MEDS: potassium chloride ER 10 mEq Tablet PO (08:01)
--- NOTE | 2021-06-08 08:05 | PC.NURSE ---
PT UP. STATING FEELS STABLE TO DC. PT SPOKE WITH AND PLAN IS TO DC TO HER [facility] TODAY. DENIES SI/HI AND AVH. THOUGHT PROCESS IS CLEAR. ALL PERSONAL BELONGINGS TO BE RETURNED TO PT UPON DC.
[2021-06-08 08:53] VITALS: BP 116/56; PULSE 91; RESP 18; TEMP 36.8; O2SAT 99
== END 2021-06-08 09:30 | disposition home or self-care (01) | DRG 885 ==
LOC: ER 04:06 → NP 04:35
PROVIDERS: Admitting Provider Psychiatry & Neurology Psychiatry; Emergency Provider Emergency Medicine; PCP Family Medicine; Visit Provider Psychiatry & Neurology Psychiatry
DX: F23 Brief psychotic disorder (principal); F33.2 Major depressive disorder, recurrent severe without psychotic features; F15.159 Other stimulant abuse with stimulant-induced psychotic disorder, unspecified; F17.200 Nicotine dependence, unspecified, uncomplicated; V89.2XXA Person injured in unspecified motor-vehicle accident, traffic, initial encounter; Z62.810 Personal history of physical and sexual abuse in childhood; Z81.8 Family history of other mental and behavioral disorders; Z59.01 Sheltered homelessness; Z72.89 Other problems related to lifestyle; Z63.5 Disruption of family by separation and divorce
CPT/HCPCS: 70450; 71260; 72125; 73630; 73706; 74177; 80053; 80306; 80307; 81001; 82550; 83605; 83735; 84703; 85025; 96372; 99285; J1200; J1630; J2060; J7030; Q0163; Q9967

== ENCOUNTER 2021-07-12 18:06 | Inpatient (IN) | payer OTHER, SELFPAY ==
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
[2021-07-12] MEDS: LORazepam 2 mg/mL INJ 1 mL IM (19:17)
[2021-07-12] MEDS: haloperidol inj 5 mg/mL INJ 1 mL 2 MG IM (19:17)
--- NOTE | 2021-07-12 19:45 | PC.NURSE ---
PT was placed on tele after the administration of ativan and haldol. Blood draw was done by butterfly needle. Urine collection by strait cath was attempted but was unable to get a speciman.
[2021-07-12 19:55] LABS: Basophils % 0.3 %; Eosinophils % 0.2 %; Hematocrit 36.1 % (37.0-47.0); Lymphocytes # 1.4 10^3/uL (0.8-4.8); Lymphocytes % 23.8 %; Mean Corpuscular HGB Conc 33.2 g/dL (30.0-36.0); Mean Corpuscular Hemoglobin 29.2 pg (28.0-34.0); Mean Corpuscular Volume 87.8 fl (81-99); Mean Platelet Volume 8.4 fL (7.4-10.4); Monocytes # 0.4 10^3/uL (0.2-0.9); Monocytes % 6.2 %; Neutrophils # 4.04 10^3/uL (1.8-7.7); Neutrophils % 69.3 %; Nucleated Red Blood Cells % 0 %; Platelet Count 241 10^3/cmm (130-400); Red Blood Count 4.11 10^6/uL (4.1-5.3); Red Cell Distribution Width 12.4 % (12.1-15.1); White Blood Count 5.8 10^3/uL (4.0-10.0)
[2021-07-12 20:22] LABS: Alanine Aminotransferase 40 U/L (0-33); Albumin Level 4.1 g/dL (3.5-5.2); Alcohol Level 13 mg/dL (0-10); Alkaline Phosphatase 53 IU/L (35-105); Anion Gap 11.9 (5-19); Aspartate Amino Transferase 31 U/L (0-32); Blood Urea Nitrogen 10 mg/dL (6-20); Calcium 8.9 mg/dL (8.5-10.5); Carbon Dioxide 27 mmol/L (22-29); Chloride 104 mmol/L (98-107); Globulin 2.4 g/dL (1.3-4.6); Glomerular Filtration Rate 182.7 mL/min (90-130); Glucose 97 mg/dL (65-115); Osmolality Calculated 289 mOsm/kg (285-295); Sodium 140 mmol/L (136-145); Thyroid Stimulating Hormone 1.53 uIU/mL (0.27-4.20); Total Bilirubin 0.5 mg/dL (0.15-1.2); Total Protein 6.5 g/dL (6.6-8.7)
[2021-07-12 20:43] LABS: Acetaminophen < 5.0 ug/mL (10-30); Potassium 2.9 mmol/L (3.5-5.1); Salicylate < 0.3 mg/dL (3-10)
[2021-07-12 21:00] VITALS: BP 134/80; PULSE 70; RESP 17; O2SAT 97
[2021-07-12 23:30] VITALS: BP 139/79; PULSE 75; RESP 16; O2SAT 97
[2021-07-12] MEDS: potassium chloride oral liq 20 mEq/15 mL UDC 40 MEQ PO (23:50)
[2021-07-13] VITALS (7 sets, daily range): BP systolic 104–147; BP diastolic 44–82; PULSE 69–105; RESP 14–88; TEMP 36.4–36.6; O2SAT 99–100; BMI 19.8
--- NOTE | 2021-07-13 00:39 | PC.NURSE ---
Pt is able to wake up and answer questions but is still drowsy. Pt needs a while longer to wake up before going to NPU.
[2021-07-13 00:52] LABS: HCG, Serum Qual Negative (Negative)
--- NOTE | 2021-07-13 01:40 | PC.NURSE ---
Pt is still asleep. She wakes up to verbal stimulous but goes back to sleep.
--- NOTE | 2021-07-13 06:42 | PC.ADMIT ---
Admission Note: Ms. Carbajal is a 35-year-old lady with history of psychiatric disorder and substance abuse who presents to the emergency department for mental health exam. She was brought in by law enforcement were called because she was [address] and appeared to be having delusions and hallucinations. The patient reports that she is dated that land and thought that she knew who was living there however it was not usually expected but she still believes that she has rights that land. Additionally at times she makes references to her organs being missing or replaced with old organs but later says that she is joking. Thought process and history is somewhat tangential. Patient reports concern over being though thinks it should be impossible. Denies other medical complaints. Denies substance abuse. History otherwise limited by patient factors. The patient,Naida Carbajal,35 y/o, was given written information regarding hospital policies, unit procedures and contact persons. Patient's smoking status: current every day smoker. Vital Signs - 8 hr 07/12/21 23:30 07/13/21 01:39 07/13/21 05:49 Temperature Pulse Rate 75 69 69 Respiratory Rate 16 16 16 Blood Pressure 139/79 147/82 147/82 Pulse Oximetry 97 100 100 07/13/21 06:00 Temperature 97.9 F Pulse Rate 105 H Respiratory Rate 20 H Blood Pressure 104/44 Pulse Oximetry 99
[2021-07-13 07:36] LABS: Add Urine Microscopic? YES; Bilirubin Urine Neg (Negative); Blood Urine 3+ (Negative); Glucose Urine UA Norm (Normal); Ketones Urine Negative (Negative); Leukocyte Esterase Urine Trace (Negative); Nitrate Urine Negative (Negative); Protein Urine 1+ (Negative); RBC Urine 15-25 /hpf (0-2); Specific Gravity, Urine 1.015 (1.005-1.030); Squamous Epithelial Cell Urine 0-4 /hpf (0-5); Urine Appearance Cloudy (CLEAR); Urine Color Amber (Yellow); Urobilinogen Urine Norm (Negative); WBC Urine 15-25 /hpf (0-5); pH Urine 7 (5-7)
[2021-07-13 07:37] LABS: Add Urine Culture? Yes; Bacteria Urine 3+ /hpf
[2021-07-13 08:07] LABS: Amphetamines Screen Urine Positive (Negative); Barbiturates Screen Urine Negative (Negative); Benzodiazepines Screen Urine Positive (Negative); Cocaine Screen Urine Negative (Negative); Opiate Screen Urine Negative (Negative); PCP Screen Urine Negative (Negative); THC Screen Urine Positive (Negative)
[2021-07-13] MEDS: fluoxetine 20 mg Capsule PO (08:52)
[2021-07-13] MEDS: thiamine 100 mg Tablet PO (08:52)
[2021-07-13] MEDS: folic acid 1 mg Tablet PO (08:52)
[2021-07-13] MEDS: potassium chloride ER 10 mEq Tablet PO (08:52)
[2021-07-13] MEDS: multivitamin therapeutic Tablet 1 TAB PO (08:52)
[2021-07-13] MEDS: ARIPiprazole 10 mg Tablet PO (08:52)
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
[2021-07-13] MEDS: diclofenac 1% Topical Gel 100 gm 8 APPLIC TOPICAL ×2 (16:53→20:09)
[2021-07-14 06:00] VITALS: BP 105/68; PULSE 83; RESP 16; TEMP 36.7; O2SAT 89
[2021-07-14] MEDS: thiamine 100 mg Tablet PO (08:46)
[2021-07-14] MEDS: potassium chloride ER 10 mEq Tablet PO (08:46)
[2021-07-14] MEDS: fluoxetine 20 mg Capsule PO (08:46)
[2021-07-14] MEDS: folic acid 1 mg Tablet PO (08:46)
[2021-07-14] MEDS: ARIPiprazole 10 mg Tablet PO (08:46)
[2021-07-14] MEDS: multivitamin therapeutic Tablet 1 TAB PO (08:47)
--- NOTE | 2021-07-14 08:49 | PC.NURSE ---
REFUSED SCHEDULED VOLTAREN GEL
--- NOTE | 2021-07-14 13:20 | PC.NURSE ---
refused scheduled Voltaren gel
[2021-07-14 14:00] VITALS: BP 113/72; PULSE 87; RESP 18; TEMP 37; O2SAT 100
--- NOTE | 2021-07-14 17:57 | P.NPUPN_ITS ---
Subjective NPU Subjective: Patient presents today continuing to [place] any reason why she is in the hospital. But we discussed the likelihood that her methamphetamine use led to the behavior that had her at the house that led to the police being there she downplayed the impact of her use and place the blame on the police officers seeking her out for no reason. She continue to focus on leaving as the foundation for the conversation and nothing about her behaviors lately significantly impacted by her drug use. Mental Status Exam MSE Comments: This is an underweight/thin white female in hospital scrubs with limited grooming and eye contact.? Possible pick rea on her face. No abnormal movements except for psychomotor agitation.? Mostly uncooperative with exam in moderate distress.? Speech was increased rate and volume.? Mood described as better and here, affect irritated and slightly less labile. Thought process somewhat organized.? Thought content: Patient denied suicidal or homicidal ideation, there were no delusions reported, but clear paranoia and possible persecutory delusions noted, she denied any auditory or visual hallucinations.? Attention and concentration were limited and memory appeared unreliable but none were formally tested.? She is alert and oriented x3.? Insight and judgment were impaired, impulse control is impaired. Vitals/I&O/Wt Last Vital Signs Temp 97.4 F L 07/14/21 21:38 Pulse 70 07/14/21 21:38 Resp 17 07/14/21 21:38 BP 104/68 07/14/21 21:38 Pulse Ox 98 07/14/21 21:38 Weight last 48 hrs Weight 50.893 kg Weight 50.893 kg Data NPU : 07/12/21 19:52 07/12/21 19:52 Micro: Microbiology 07/13/21 06:30 Urine Culture - Preliminary Urine,Clean Catch Microbiology 07/13/21 06:30 Urine,Clean Catch Urine Culture - Preliminary A&P Assessment and plan (1) Methamphetamine use disorder, severe: Status: Acute (2) Acute psychosis: Status: Acute (3) Depression: Status: Acute Qualifiers: Depression Type: major depressive disorder Major depression recurrence: recurrent Active/Remission status: currently active Major depression episode severity: severe Psychotic features: without psychotic features Qualified Code(s): F33.2 - Major depressive disorder, recurrent severe without psychotic features (4) Anxiety: Status: Acute (5) Alcohol use: Status: Acute Plan This is a 35-year-old white female who comes in psychotic and positive on methamphetamine, cannabis and alcohol per her UDS/blood alcohol resistant to treatment on a 96-hour hold. Plan: 1.? Continue current medication.? We will continue to offer antipsychotics. 2.? Continue every 15 minute checks for safety. 3.? Encourage individual, group and milieu therapies. 4.? Encourage sober living treatment after discharge at the highest level of care to which she is willing to commit. 5.? We will explore safety for discharge against the backdrop of the 96-hour hold. Involuntary Hold Information 96 Hour Hold: 96 Hour Involuntary Admission: Yes 96 Hour Hold Ending Date: 07/18/21 96 Hour Hold Ending Time: 00:01 Attestations NPU Medical Necessity Statement*: Inpatient hospitalization is medically necessary and the clinically appropriate intervention at this time. We will monitor medication to make changes as indicated. Likely length of stay 3-5 days. 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
[2021-07-14] MEDS: diclofenac 1% Topical Gel 100 gm 8 APPLIC TOPICAL (21:00)
[2021-07-14 21:38] VITALS: BP 104/68; PULSE 70; RESP 17; TEMP 36.3; O2SAT 98
[2021-07-15 06:00] VITALS: BP 107/66; PULSE 66; RESP 14; TEMP 36.5; O2SAT 99
[2021-07-15] MEDS: ARIPiprazole 10 mg Tablet PO (08:10)
[2021-07-15] MEDS: folic acid 1 mg Tablet PO (08:10)
[2021-07-15] MEDS: multivitamin therapeutic Tablet 1 TAB PO (08:10)
[2021-07-15] MEDS: potassium chloride ER 10 mEq Tablet PO (08:10)
[2021-07-15] MEDS: diclofenac 1% Topical Gel 100 gm 8 APPLIC TOPICAL ×2 (08:10→21:24)
[2021-07-15] MEDS: thiamine 100 mg Tablet PO (08:10)
[2021-07-15] MEDS: fluoxetine 20 mg Capsule PO (08:10)
--- NOTE | 2021-07-15 09:50 | W.PM.NPUPNS ---
Subjective NPU Subjective: Patient presents today virtually unchanged. Continuing to have limited insight into that danger circumstances that she continues to be in. Continues to downplay the impact of her addiction. Baljit reporting that she has been going through her body thousands of dollars without concern for the outcomes. Significant concern for these dangerous behaviors and her putting herself in dangerous situations in regards to obtaining the drug. Patient denies everything, denies any concerns and is unwilling to even have him take about the problematic behaviors. Mental Status Exam MSE Comments: This is an underweight/thin white female in hospital scrubs with limited grooming and eye contact.? Possible pick rea on her face. No abnormal movements except for psychomotor agitation.? Mostly uncooperative with exam in moderate distress.? Speech was increased rate and volume.? Mood described as I am fine, affect irritated and slightly less labile.? Thought process somewhat organized.? Thought content: Patient denied suicidal or homicidal ideation, there were no delusions reported, but clear paranoia and possible persecutory delusions noted, she denied any auditory or visual hallucinations.? Attention and concentration were limited and memory appeared unreliable but none were formally tested.? She is alert and oriented x3.? Insight and judgment were impaired, impulse control is impaired. Vitals/I&O/Wt Last Vital Signs Temp 97.7 F 07/15/21 06:00 Pulse 66 07/15/21 06:00 Resp 14 07/15/21 06:00 BP 107/66 07/15/21 06:00 Pulse Ox 99 07/15/21 06:00 Data NPU : 07/12/21 19:52 07/12/21 19:52 Micro: Microbiology 07/13/21 06:30 Urine Culture - Final Urine,Clean Catch Microbiology 07/13/21 06:30 Urine,Clean Catch Urine Culture - Final A&P Assessment and plan (1) Methamphetamine use disorder, severe: Status: Acute (2) Acute psychosis: Status: Acute (3) Substance abuse: Status: Acute (4) Depression: Status: Acute Qualifiers: Depression Type: major depressive disorder Major depression recurrence: recurrent Active/Remission status: currently active Major depression episode severity: severe Psychotic features: without psychotic features Qualified Code(s): F33.2 - Major depressive disorder, recurrent severe without psychotic features (5) Alcohol use: Status: Acute (6) Anxiety: Status: Acute Plan This is a 35-year-old white female who comes in psychotic and positive on methamphetamine, cannabis and alcohol per her UDS/blood alcohol resistant to treatment on a 96-hour hold. Plan: 1.? Continue current medication.? We will continue to offer antipsychotics. 2.? Continue every 15 minute checks for safety. 3.? Encourage individual, group and milieu therapies. 4.? Encourage sober living treatment after discharge at the highest level of care to which she is willing to commit. 5.? We will explore safety for discharge against the backdrop of the 96-hour hold. Mom considering cardiac may consider a 21 day hold if no improvement noted. Involuntary Hold Information 96 Hour Hold: 96 Hour Involuntary Admission: Yes 96 Hour Hold Ending Date: 07/18/21 96 Hour Hold Ending Time: 00:01 Attestations NPU Medical Necessity Statement*: Inpatient hospitalization is medically necessary and the clinically appropriate intervention at this time. We will monitor medication to make changes as indicated.? Likely length of stay 3-5 days. Coding Level of Care Code Acute Day Spa Manager for Royce De La Vega Diagnoses Methamphetamine use disorder, severe F15.20 Acute psychosis F23 Substance abuse F19.10 Depression F33.2 Depression Type: major depressive disorder Major depression recurrence: recurrent Active/Remission status: currently active Major depression episode severity: severe Psychotic features: without psychotic features Alcohol use Z72.89 Anxiety F41.9
[2021-07-15 14:00] VITALS: BP 105/66; PULSE 73; RESP 18; TEMP 36.3; O2SAT 97
[2021-07-15 21:17] VITALS: BP 92/49; PULSE 71; RESP 16; TEMP 36.6; O2SAT 98
[2021-07-16 06:00] VITALS: BP 94/57; PULSE 81; RESP 14; TEMP 36.8; O2SAT 98
[2021-07-16] MEDS: diclofenac 1% Topical Gel 100 gm 8 APPLIC TOPICAL ×2 (08:54→17:27)
[2021-07-16] MEDS: folic acid 1 mg Tablet PO (08:54)
[2021-07-16] MEDS: potassium chloride ER 10 mEq Tablet PO (08:54)
[2021-07-16] MEDS: multivitamin therapeutic Tablet 1 TAB PO (08:54)
[2021-07-16] MEDS: fluoxetine 20 mg Capsule PO (08:54)
[2021-07-16] MEDS: thiamine 100 mg Tablet PO (08:54)
[2021-07-16] MEDS: ARIPiprazole 10 mg Tablet PO (08:54)
[2021-07-16 14:00] VITALS: BP 103/68; PULSE 90; RESP 16; TEMP 36.7; O2SAT 98
--- NOTE | 2021-07-16 18:29 | P.NPUPN_ITS ---
Subjective NPU Subjective: Continuing to have struggles with insight and acceptance of the circumstance that led her to be here. Even against the backdrop of losing her children, her home and if finances getting resistant to acknowledging the impact of her use and challenges that are creating Haiar. Since having her at length and she continue to point the finger at others and be unwilling to look in the mirror at her self and her own choices. Mental Status Exam MSE Comments: This is an underweight/thin white female in hospital scrubs with limited grooming and eye contact.? Possible pick rea on her face. No abnormal movements except for psychomotor agitation.? Mostly uncooperative with exam in moderate distress.? Speech was increased rate and volume.? Mood described as you are making me feel bad by keeping me here, affect irritated and slightly less labile.? Thought process more organized.? Thought content: Patient denied suicidal or homicidal ideation, there were no delusions reported, but clear paranoia and possible persecutory delusions noted, she denied any auditory or visual hallucinations.? Attention and concentration were limited and memory appeared unreliable but none were formally tested.? She is alert and oriented x3.? Insight and judgment were impaired, impulse control is impaired. Vitals/I&O/Wt Last Vital Signs Temp 98.0 F 07/16/21 14:00 Pulse 90 07/16/21 14:00 Resp 16 07/16/21 14:00 BP 103/68 07/16/21 14:00 Pulse Ox 98 07/16/21 14:00 Data NPU : 07/12/21 19:52 07/12/21 19:52 A&P Assessment and plan (1) Methamphetamine use disorder, severe: Status: Acute (2) Acute psychosis: Status: Acute (3) Substance abuse: Status: Acute (4) Anxiety: Status: Acute (5) Depression: Status: Acute Qualifiers: Depression Type: major depressive disorder Major depression recurrence: recurrent Active/Remission status: currently active Major depression episode severity: severe Psychotic features: without psychotic features Qualified Code(s): F33.2 - Major depressive disorder, recurrent severe without psychotic features (6) Alcohol use: Status: Acute Plan This is a 35-year-old white female who comes in psychotic and positive on methamphetamine, cannabis and alcohol per her UDS/blood alcohol resistant to treatment on a 96-hour hold. Plan: 1.? Continue current medication.? We will continue to offer antipsychotics. 2.? Continue every 15 minute checks for safety. 3.? Encourage individual, group and milieu therapies. 4.? Encourage sober living treatment after discharge at the highest level of care to which she is willing to commit. 5.? We will explore safety for discharge against the backdrop of the 96-hour hold.? Mom considering guardianship may consider a 21 day hold if no improvement noted. Involuntary Hold Information 96 Hour Hold: 96 Hour Involuntary Admission: Yes 96 Hour Hold Ending Date: 07/18/21 96 Hour Hold Ending Time: 00:01 Attestations NPU Medical Necessity Statement*: Inpatient hospitalization is medically necessary and the clinically appropriate intervention at this time. We will monitor medication to make changes as indicated.? Likely length of stay 3-5 days. We will consider discharge today versus extended 96-hour hold for 21-day hold. Coding Level of Care Code Acute Final Application Reviewer for Royce De La Vega Diagnoses Methamphetamine use disorder, severe F15.20 Acute psychosis F23 Substance abuse F19.10 Anxiety F41.9 Depression F33.2 Depression Type: major depressive disorder Major depression recurrence: recurrent Active/Remission status: currently active Major depression episode severity: severe Psychotic features: without psychotic features Alcohol use Z72.89
[2021-07-16 20:40] VITALS: BP 98/64; PULSE 117; RESP 19; TEMP 36.8; O2SAT 94
[2021-07-17 06:00] VITALS: BP 103/61; PULSE 78; RESP 16; TEMP 37.1; O2SAT 99
[2021-07-17] MEDS: folic acid 1 mg Tablet PO (08:49)
[2021-07-17] MEDS: multivitamin therapeutic Tablet 1 TAB PO (08:49)
[2021-07-17] MEDS: potassium chloride ER 10 mEq Tablet PO (08:49)
[2021-07-17] MEDS: ARIPiprazole 10 mg Tablet PO (08:49)
[2021-07-17] MEDS: thiamine 100 mg Tablet PO (08:49)
[2021-07-17] MEDS: fluoxetine 20 mg Capsule PO (08:49)
[2021-07-17] MEDS: diclofenac 1% Topical Gel 100 gm 8 APPLIC TOPICAL ×3 (08:58→20:31)
[2021-07-17 14:00] VITALS: BP 130/71; PULSE 110; RESP 17; TEMP 36.6; O2SAT 99
[2021-07-17 16:48] VITALS: BP 130/71; PULSE 110; RESP 17; TEMP 36.6; O2SAT 99
--- NOTE | 2021-07-17 18:34 | PC.NURSE ---
21 DAY PAPER WORK SERVED TO PT BY DEPUTY WITH SECURITY AND STAFF PRESENT. PT DID SPEAK TO DR. HELM AND DID SIGN IN VOLUNTARILY.
--- NOTE | 2021-07-17 19:01 | W.PM.NPUPNS ---
Subjective NPU Subjective: Patient presents today for the first time having some clear improvement. She was for the first time not emotionally dysregulated; not crying or screaming or demanding or identifying something about other people to be angry about. We discussed the fact we had submitted a 21-day hold earlier today due to her dangerous behavior and concerns of her not being able to identify the reality of her challenges. She was able to identify that this was the case but also was noting the decision she is a just recently and her collaboration with the treatment team towards more significant treatment. We made an agreement to monitor her for another 72 hours or less depending on her improvement in collaboration with her support system/mother and she understood and agreed to proceed as is documented in this note. Mental Status Exam MSE Comments: This is an underweight/thin white female in hospital scrubs with improving grooming and eye contact.? Possible pick rea on her face. No abnormal movements except for mild psychomotor retardation.? More cooperative with exam in mild distress.? Speech was more normal rate and volume.? Mood described as okay, affect less irritated and labile.? Thought process more organized.? Thought content: Patient denied suicidal or homicidal ideation, there were no delusions reported or noted, she denied any auditory or visual hallucinations.? Attention and concentration were intact and memory appeared more reliable but none were formally tested.? She is alert and oriented x3.? Insight and judgment were improving, impulse control is improving. Vitals/I&O/Wt Last Vital Signs Temp 98.0 F 07/17/21 20:29 Pulse 91 07/17/21 20:29 Resp 17 07/17/21 20:29 BP 116/55 07/17/21 20:29 Pulse Ox 98 07/17/21 20:29 Data NPU : 07/12/21 19:52 07/12/21 19:52 A&P Assessment and plan (1) Methamphetamine use disorder, severe: Status: Acute (2) Acute psychosis: Status: Acute (3) Depression: Status: Acute Qualifiers: Depression Type: major depressive disorder Major depression recurrence: recurrent Active/Remission status: currently active Major depression episode severity: severe Psychotic features: without psychotic features Qualified Code(s): F33.2 - Major depressive disorder, recurrent severe without psychotic features (4) Alcohol use: Status: Acute (5) Anxiety: Status: Acute Plan This is a 35-year-old white female who comes in psychotic and positive on methamphetamine, cannabis and alcohol per her UDS/blood alcohol resistant to treatment on a 96-hour hold. Plan: 1.? Continue current medication.? We will continue to offer antipsychotics. 2.? Continue every 15 minute checks for safety. 3.? Encourage individual, group and milieu therapies. 4.? Encourage sober living treatment after discharge at the highest level of care to which she is willing to commit. 5.? 21-day hold was filed but made in agreement with patient to observe and treat for another up to 72 hours if continued improvement observed. Involuntary Hold Information 96 Hour Hold: 96 Hour Involuntary Admission: Yes 96 Hour Hold Ending Date: 07/18/21 96 Hour Hold Ending Time: 00:01 Attestations NPU Medical Necessity Statement*: Inpatient hospitalization is medically necessary and the clinically appropriate intervention at this time. We will monitor medication to make changes as indicated.? Likely length of stay 2-4 days.? We will cancel the 21-day hold. Coding Level of Care Code Acute Cryptographic Machine Operator for Royce De La Vega Diagnoses Methamphetamine use disorder, severe F15.20 Acute psychosis F23 Depression F33.2 Depression Type: major depressive disorder Major depression recurrence: recurrent Active/Remission status: currently active Major depression episode severity: severe Psychotic features: without psychotic features Alcohol use Z72.89 Anxiety F41.9
[2021-07-17 20:29] VITALS: BP 116/55; PULSE 91; RESP 17; TEMP 36.7; O2SAT 98
[2021-07-18 06:00] VITALS: BP 96/60; PULSE 77; RESP 16; TEMP 36.3; O2SAT 97
[2021-07-18] MEDS: ARIPiprazole 10 mg Tablet PO (08:53)
[2021-07-18] MEDS: potassium chloride ER 10 mEq Tablet PO (08:53)
[2021-07-18] MEDS: diclofenac 1% Topical Gel 100 gm 8 APPLIC TOPICAL ×3 (08:53→20:22)
[2021-07-18] MEDS: thiamine 100 mg Tablet PO (08:53)
[2021-07-18] MEDS: multivitamin therapeutic Tablet 1 TAB PO (08:53)
[2021-07-18] MEDS: fluoxetine 20 mg Capsule PO (08:53)
[2021-07-18] MEDS: folic acid 1 mg Tablet PO (08:53)
[2021-07-18] MEDS: ibuprofen 800 mg tablet PO ×2 (10:08→18:38)
[2021-07-18] MEDS: acetaminophen 325 mg Tablet 650 MG PO (12:16)
--- NOTE | 2021-07-18 12:43 | W.PM.NPUPNS ---
Subjective NPU Subjective: Patient presents today reporting that she is feeling a little better. She did not ask about discharge during the session. However her openness to talking to this health technical writer made it clear that she is still having some residual thought disorder. Saying some things that to her seemed profound but were of limited clarity. She is continue to improve however and endorses a plan to follow through with some treatment options however no clear sense of accountability exists which creates a great risk for her returning quickly. We discussed the fact that if she were to return that it would be a great indication that the need for more time given her psychosis at least exacerbated by the methamphetamine was not needed. Mental Status Exam MSE Comments: This is an underweight/thin white female in hospital scrubs with improving grooming and eye contact.? Possible pick rea on her face. No abnormal movements except for mild psychomotor retardation.? More cooperative with exam in no acute distress.? Speech was more normal rate and volume.? Mood described as much better, affect less irritated and labile.? Thought process more organized.? Thought content: Patient denied suicidal or homicidal ideation, there were no delusions reported or noted, she denied any auditory or visual hallucinations.? Attention and concentration were intact and memory appeared more reliable but none were formally tested.? She is alert and oriented x3.? Insight and judgment were limited, but improving, impulse control is improving, limited Vitals/I&O/Wt Last Vital Signs Temp 97.4 F L 07/18/21 06:00 Pulse 77 07/18/21 06:00 Resp 16 07/18/21 06:00 BP 96/60 07/18/21 06:00 Pulse Ox 97 07/18/21 06:00 Data NPU : 07/12/21 19:52 07/12/21 19:52 A&P Assessment and plan (1) Methamphetamine use disorder, severe: Status: Acute (2) Acute psychosis: Status: Acute (3) Depression: Status: Acute Qualifiers: Depression Type: major depressive disorder Major depression recurrence: recurrent Active/Remission status: currently active Major depression episode severity: severe Psychotic features: without psychotic features Qualified Code(s): F33.2 - Major depressive disorder, recurrent severe without psychotic features (4) Alcohol use: Status: Acute (5) Anxiety: Status: Acute Plan This is a 35-year-old white female who comes in psychotic and positive on methamphetamine, cannabis and alcohol per her UDS/blood alcohol resistant to treatment on a 96-hour hold. Plan: 1.? Continue current medication.? We will consider increasing Abilify to 15 mg p.o. daily and consider the long-acting injectable. 2.? Continue every 15 minute checks for safety. 3.? Encourage individual, group and milieu therapies. 4.? Encourage sober living treatment after discharge at the highest level of care to which she is willing to commit. 5.? 21-day hold was filed but made in agreement with patient to observe and treat for another up to 48 hours if continued improvement observed. Involuntary Hold Information 96 Hour Hold: 96 Hour Involuntary Admission: Yes 96 Hour Hold Ending Date: 07/18/21 96 Hour Hold Ending Time: 00:01 Attestations NPU Medical Necessity Statement*: Inpatient hospitalization is medically necessary and the clinically appropriate intervention at this time. We will monitor medication to make changes as indicated.? Likely length of stay 1-3 days.? We will cancel the 21-day hold. Coding Level of Care Code Acute Marble Installation Helper for Royce Worthingtond Diagnoses Methamphetamine use disorder, severe F15.20 Acute psychosis F23 Depression F33.2 Depression Type: major depressive disorder Major depression recurrence: recurrent Active/Remission status: currently active Major depression episode severity: severe Psychotic features: without psychotic features Alcohol use Z72.89 Anxiety F41.9
[2021-07-18 14:00] VITALS: BP 123/80; PULSE 110; RESP 18; TEMP 36.8; O2SAT 98
[2021-07-18 20:25] VITALS: BP 109/55; PULSE 88; RESP 18; O2SAT 98
[2021-07-19 06:00] VITALS: BP 110/73; PULSE 67; RESP 16; O2SAT 96
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
[2021-07-19 08:20] VITALS: BP 110/73; PULSE 67; RESP 16; O2SAT 96
[2021-07-19] MEDS: folic acid 1 mg Tablet PO (08:36)
[2021-07-19] MEDS: fluoxetine 20 mg Capsule PO (08:36)
[2021-07-19] MEDS: multivitamin therapeutic Tablet 1 TAB PO (08:36)
[2021-07-19] MEDS: thiamine 100 mg Tablet PO (08:36)
[2021-07-19] MEDS: potassium chloride ER 10 mEq Tablet PO (08:36)
[2021-07-19] MEDS: ARIPiprazole 10 mg Tablet PO (08:36)
== END 2021-07-19 08:55 | disposition home or self-care (01) | DRG 885 ==
LOC: ER 21:37 → NP 07-13 00:03
PROVIDERS: Admitting Provider Psychiatry & Neurology Psychiatry; Emergency Provider Emergency Medicine; PCP Family Medicine; Visit Provider Psychiatry & Neurology Psychiatry
DX: F23 Brief psychotic disorder (principal); F33.2 Major depressive disorder, recurrent severe without psychotic features; F15.20 Other stimulant dependence, uncomplicated; F41.9 Anxiety disorder, unspecified; F17.200 Nicotine dependence, unspecified, uncomplicated; F10.10 Alcohol abuse, uncomplicated
CPT/HCPCS: 80053; 80306; 80307; 81001; 84443; 84703; 85025; 87086; 96365; 96366; 96372; 97150; 97165; 99285; J1630; J2060

== ENCOUNTER 2022-05-09 20:48 | Emergency (ER) | payer MEDICAID, SELFPAY ==
[2022-05-09 20:51] VITALS: BP 129/73; PULSE 97; RESP 18; TEMP 36.6; O2SAT 96; BMI 24.7
--- NOTE | 2022-05-09 21:33 | ED.C_ITS ---
HPI - Psych General: Chief Complaint: Psychiatric Symptoms Stated Complaint: MHE Time Seen by Provider: 05/09/22 21:06 History of Present Illness: 36-year-old female has had a rough day. She has had problems with her parents, as [place] their land. She has had problems with custody issues with her kids. She reports taking three 0.5 mg Xanax this morning, and 3 more pills this afternoon. She denies suicidality. She states she took them and lay down trying to rest, as she is having problems sleeping due to the above. She denies any other ingestion, coingestion with alcohol or illicit substances, etc. She did not want to come in, but was told by law enforcement that she should come be evaluated. She does admit to making a comment to her mother earlier in the day about just slitting my wrist so you do not have to deal with me anymore . She states that this was a comment related to the argument they were having, and in no way wishes to act on this statement. She is experiencing no medical symptoms. MD complaint: other Onset (ago): hour(s) Duration: other History of same: No Relieving factors: none Exacerbating factors: none Context: significant life stressor Associated psychiatric symptoms: depression Associated symptoms: Reports depression; Deny auditory hallucinations, visual hallucinations, delusions, homicidal ideation or suicidal ideation Treatments prior to arrival: none Review of Systems Const: Denies: fever(s), chills or body aches Eyes: Denies: change in vision Card: Denies: chest pain or palpitations Resp: Denies: dyspnea, productive cough, non-productive cough or wheezing GI: Denies: abdominal pain, nausea, vomiting, diarrhea or hematochezia : Denies: difficulty voiding Skin/Breast: Denies: rash Neuro: Denies: headache(s), weakness in extremities, dizziness or confusion Psych: Reports: depression; Denies: visual hallucinations, auditory hallucinations, suicidal ideation or homicidal ideation [facility] ED PFSH: Medical History Alcohol use Anxiety Diagnosed in about 2015 and she used to take alprazolam as needed for this. She states that she currently has a therapist whom she talks to and this helps. She follows with her primary care provider Dr. Farr Depression GERD (gastroesophageal reflux disease) Methamphetamine abuse No pertinent past medical history Denies diabetes, asthma, hypertension, seizures, DVT/PE PMD-Dr. Farr Psychiatric care Substance abuse Substance induced mood disorder Surgical History History of esophagogastroduodenoscopy (EGD) 06/2019 History of tonsillectomy 06/[address] the [address] Brito as this was thought to contribute to s leep apnea History of tubal ligation post tubal ligation by Dr. Quiroz at [facility] [place]. 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 S/P wisdom tooth extraction Family History Father Diabetes Family/Other Diabetes maternal aunt Grandmother Diabetes maternal Stroke paternal Grandfather Stroke paternal and maternal Denies family history of Cervical cancer Colon cancer Ovarian cancer DVT (deep venous thrombosis) Heart disease Hyperlipidemia Breast cancer Anesthesia complication Bleeding disorder Pulmonary embolism Hypertension Uterine cancer Thyroid condition Social History Smoking and tobacco status: current every day smoker Alcohol intake: never Adopted: No Caregiver/support person: Yes Lives independently: Yes Household members: spouse Housing: House service: No Current occupational status: employed Pets and animals: No Sexually active: No Special christiano needs: No Additional social history: - Tobacco Use: Denies current or past use Drug Use: Used marijuana a couple of times as a teenager; denies any other drug use Alcohol Use: Denies 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 Physical Exam Const: COMMON NORMALS: no acute distress GENERAL APPEARANCE: cooperative; not ill appearing and not frail appearing HENMT: COMMON NORMALS: normocephalic, atraumatic and Normal external nose present HEAD & SCALP: normocephalic and atraumatic FACE & SINUS: normal facial exam and face symmetric NOSE: Normal external nose present Eye: COMMON NORMALS: Equal, round and reactive pupils present and EOMs intact bilaterally PUPIL: Yes Equal, round and reactive pupils present Neck/C-Spine: GENERAL: Yes trachea midline Chest: CHEST: Yes Symmetrical chest wall rise Resp: COMMON NORMALS: normal respiratory effort, No retractions, No use of accessory muscles and clear to auscultation bilaterally AUSCULTATION: clear to auscultation bilaterally Cardio: COMMON NORMALS: regular rate and regular rhythm RATE: regular rate RHYTHM: regular rhythm GI: COMMON NORMALS: Normal to inspection, nondistended, normoactive bowel sounds present Extremity: COMMON NORMALS: no pedal edema Neuro: HERON COMA SCALE: document GCS findings Heron coma scale eye opening: Spontaneous [place] coma scale verbal response: Orientated Heron coma scale motor response: Obey commands [place] coma scale total score: 15 SENSORY EXAM: Yes extremities (intact) Psych: COMMON NORMALS: mental status grossly normal, Normal thought process present, cooperative and speech normal ATTITUDE: Yes agitated ACTIVITY/MOTOR BEHAVIOR: Yes appropriate eye contact SPEECH: Yes normal speech MOOD & AFFECT: Yes depressed mood THOUGHT PROCESS: Normal thought process present THOUGHT CONTENT: Yes Normal thought content present, No Suicidality present, No Homicidality present, No delusions and No Hallucination(s) present ATTENTION/CONCENTRATION: Yes attention grossly intact and Yes concentration grossly intact MEMORY/COGNITION: Yes memory grossly intact and Yes cognition grossly intact INSIGHT: Fair insight present (Psych) JUDGEMENT: Fair judgement present (Psych) Skin: COMMON NORMALS: no rashes or lesions noted GENERAL SKIN EXAM: no rashes or lesions noted Course Vital Signs: Vital signs: Vital Signs Temperature 98 F 05/09/22 20:51 Pulse Rate 93 05/10/22 00:22 Respiratory Rate 18 05/10/22 00:22 Blood Pressure 116/65 05/10/22 00:22 Pulse Oximetry 98 05/10/22 00:22 Oxygen Delivery Me thod 05/09/22 23:31 [facility] - Psych Medical Decision Making This patient is not suicidal, she is not homicidal. She has taken a nontoxic dose of medication, although it is more than prescribed. Transient abuse of a prescribed benzodiazepine is not cause for hospitalization. She admits to a lapse in judgment regarding this due to stress problems. Medically she is stable. As she is not psychotic, not homicidal or suicidal, not considered a danger to herself given her low level of benzodiazepine ingestion, she will be allowed discharge. She may not drive. Discharge Plan Discharge Patient Disposition: Home Clinical Impression: Accidental overdose of alprazolam Condition: Stable Prescriptions: No Action Effer-K 25 mEq Tablet, Effervescent 50 meq PO BID 30 Days Qty: 120 1RF diclofenac sodium [Voltaren Arthritis Pain] 1 % gel 4 g topical QID Qty: 100 0RF Rx Instructions: apply to single knee, ankle, foot; for foot includes sole/toes/top of foot potassium chloride 10 mEq tablet,ER particles/crystals 10 meq PO DAILY Vitamin B-1 (mononitrate) 100 mg Tablet 100 mg PO DAILY 30 Days Qty: 30 1RF fluoxetine 20 mg capsule 20 mg PO DAILY 30 Days Qty: 30 1RF aripiprazole 10 mg tablet 10 mg PO DAILY 30 Days Qty: 30 1RF Discharge Orders: Discharge ED (Routine); Ordered 05/10/22 Ordered By: Anthony Wray Referrals: Baldemar Rivero MD [Primary Care Provider] - 4-7 days Patient Instructions: Benzodiazepine Overdose (ED) Activity Restrictions/Additional Instructions: No use of alprazolam for the next 24 hours. Return for any thoughts or wishes t o harm your self or anyone else. Return for any other concerning symptoms. Coding Level of Care Code ED Continuous Linter Drier Operator for Royce De La Vega
[2022-05-09 22:31] VITALS: BP 102/42; PULSE 100; RESP 18; O2SAT 97
--- NOTE | 2022-05-09 22:41 | PC.NURSE ---
Patient is working on transport at this time and understands she is being discharged.
[2022-05-09 23:31] VITALS: BP 116/40; PULSE 93; RESP 18; O2SAT 97
--- NOTE | 2022-05-10 00:19 | PC.NURSE ---
Pt is emotional and upset at her mother for calling the police on her. Pt's mother called the ER and spoke to this nurse - mother is upset that we are not keeping the pt. It was explained that pt was evaluated and found to not be suicidal/homicidal and did not intend to overdose, so pt is able to be discharged safely. Mother continued to get upset and then stated she would not come and get the pt, and then hung up. Pt stated to this nurse that I'm just going to be honest with you. My mother is high as fuck on methamphetamines and she gets mean like this. Mother did end up coming to get the pt after pt called her with her cellphone. Pt was given discharge instructions and reviewed to come back to ER if she does not feel safe, feels SI/HI.
[2022-05-10 00:22] VITALS: BP 116/65; PULSE 93; RESP 18; O2SAT 98
== END 2022-05-10 00:23 | disposition home or self-care (01) ==
PROVIDERS: Emergency Provider Emergency Medicine; PCP Family Medicine
DX: T42.4X1A Poisoning by benzodiazepines, accidental (unintentional), initial encounter (principal); F17.200 Nicotine dependence, unspecified, uncomplicated
CPT/HCPCS: 99285

== ENCOUNTER 2022-07-21 18:28 | Inpatient (IN) | payer MEDICAID, SELFPAY ==
[2022-07-21 18:29] VITALS: BP 125/67; PULSE 113; RESP 18; TEMP 37.1; O2SAT 99
--- NOTE | 2022-07-21 18:33 | W.ED.PSYCHS ---
HPI - Psych General: Chief Complaint: Psychiatric Symptoms Stated Complaint: 96 HOUR HOLD Time Seen by Provider: 07/21/22 18:32 Limitations: other History of Present Illness: Ms. Carbajal is a 36-year-old lady with history of polysubstance abuse and psychiatric disorder presenting to the emergency department via law enforcement for psychiatric evaluation. The patient herself is somewhat standoffish and annoyed at being here. She reports that she frequently has arguments with her mother and she asked her father for a ride somewhere and he called law enforcement. When law enforcement arrived the patient had cut her arm and was bleeding and agitated. She reports that she cut herself to prove a point to her mother who does not seem to care about her. She denies that this was a suicide attempt. She is somewhat evasive regarding recent substance abuse. Other than scrapes and superficial lacerations the patient denies any injuries. She reports being up-to-date on her tetanus. No other specific changes in health, exacerbating, or alleviating factors identified. Review of Systems General: Reports: 10 or more systems reviewed and unremarkable except in HPI and below PFSH ED PFSH: Medical History Alcohol use Anxiety Diagnosed in about 2015 and she used to take alprazolam as needed for this. She states that she currently has a therapist whom she talks to and this helps. She follows with her primary care provider Dr. Farr Depression GERD (gastroesophageal reflux disease) Methamphetamine abuse No pertinent past medical history Denies diabetes, asthma, hypertension, seizures, DVT/PE PMD-Dr. Farr Psychiatric care Substance abuse Substance induced mood disorder Surgical History History of esophagogastroduodenoscopy (EGD) 06/2019 History of tonsillectomy 06/[address] the age of [address] Brito as this was thought to contribute to sleep apnea History of tubal ligation post tubal ligation by Dr. Quiroz at [facility] [place]. 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 S/P wisdom tooth extraction Family History Father Diabetes Family/Other Diabetes maternal aunt Grandmother Diabetes maternal Stroke paternal Grandfather Stroke paternal and maternal Denies family history of Cervical cancer Colon cancer Ovarian cancer DVT (deep venous thrombosis) Heart disease Hyperlipidemia Breast cancer Anesthesia complication Bleeding disorder Pulmonary embolism Hypertension Uterine cancer Thyroid condition Social History Smoking and tobacco status: current every day smoker Alcohol intake: never Substance/Drug Use: current Substance/Drug use frequency: few times a week Adopted: No Caregiver/support person: Yes Lives independently: Yes Household members: spouse Housing: House service: No Current occupational status: employed Pets and animals: No Sexually active: No Do you think of yourself as: Straight/Heterosexual Special christiano needs: No Additional social history: - Tobacco Use: Denies current or past use Drug Use: Used marijuana a couple of times as a teenager; denies any other drug use Alcohol Use: Denies 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 Physical Exam Const: COMMON NORMALS: alert GENERAL APPEARANCE: cooperative and well developed HENMT: COMMON NORMALS: normocephalic and atraumatic HEAD & SCALP: normocephalic and atraumatic Eye: COMMON NORMALS: conjunctivae normal CONJUNCTIVA: Yes conjunctivae normal SCLERA: sclerae normal Neck/C-Spine: COMMON NORMALS: supple GENERAL: Yes trachea midline Resp: COMMON NORMALS: normal respiratory effort EFFORT & INSPECTION: Yes able to speak in complete sentences Cardio: COMMON NORMALS: regular rate and regular rhythm RATE: regular rate RHYTHM: regular rhythm GI: COMMON NORMALS: Soft to palpation PALPATION: Yes Soft to palpation and No Tenderness to palpation present (GI) PERCUSSION: normal to percussion Extremity: NARRATIVE EXTREMITY EXAM: Numerous scattered abrasions and superficial contusions. Linear transversely oriented superficial lacerations to proximal left inner forearm. GENERAL: Yes normal exam except as noted and No edema Neuro: COMMON NORMALS: moves all extremities SENSORIUM/ORIENTATION: Yes alert and No Orientation impaired Psych: COMMON NORMALS: mental status grossly normal, Normal thought process present, denies hallucinations, denies homicidal ideation and denies suicidal ideation THOUGHT PROCESS: Normal thought process present Course Vital Signs: Vital signs: Vital Signs Temperature 97.8 F 07/24/22 12:49 Pulse Rate 100 07/24/22 12:49 Respiratory Rate 18 07/24/22 12:49 Blood Pressure 89/46 07/24/22 12:49 Pulse Oximetry 96 07/24/22 12:49 Oxygen Delivery Me thod Room Air 07/24/22 06:00 MDM - Psych Medical Decision Making 36-year-old presenting with evidence of psychosis on outside 96-hour on hold. Exam as above. Patient is nontoxic. Labs demonstrate no significant hematologic or metabolic abnormality. TSH is normal. Urine drug screen and toxic ingestions are negative. hCG negative Given physical exam and clinical history provided there is no indication for imaging at this time. Based on ED evaluation at this point there is no obvious condition that would preclude the patient from inpatient management of psychiatric concerns/symptoms. Discussed with psychiatry service who was agreeable to admit the patient. Medical Records I reviewed the patient's medical records. Lab Data I reviewed the patient's lab results. 07/21/22 19:00 07/21/22 19:00 Laboratory Results WBC 8.5 10^3/uL (4.0-10.0) 07/21/22 19:00 RBC 4.99 10^6/uL (4.1-5.3) 07/21/22 19:00 Hgb 14.1 g/dL (11.5-15.3) 07/21/22 19:00 Hct 44.8 % (37.0-47.0) 07/21/22 19:00 MCV 89.8 fl (81-99) 07/21/22 19:00 MCH 28.3 pg (28.0-34.0) 07/21/22 19:00 MCHC 31.5 g/dL (30.0-36.0) 07/21/22 19:00 RDW 12.2 % (12.1-15.1) 07/21/22 19:00 Plt Count 254 10^3/cmm (130-400) 07/21/22 19:00 MPV 8.8 fL (7.4-10.4) 07/21/22 19:00 Neut % (Auto) 73.8 % 07/21/22 19:00 Lymph % (Auto) 20.3 % 07/21/22 19:00 Traverse % (Auto) 4.9 % 07/21/22 19:00 Eos % (Auto) 0.5 % 07/21/22 19:00 Baso % (Auto) 0.1 % 07/21/22 19:00 Neut # (Auto) 6.28 10^3/uL (1.8-7.7) 07/21/22 19:00 Lymph # (Auto) 1.7 10^3/uL (0.8-4.8) 07/21/22 19:00 Traverse # (Auto) 0.4 10^3/uL (0.2-0.9) 07/21/22 19:00 Eos # (Auto) 0.0 10^3/uL (0.0-0.8) 07/21/22 19:00 Baso # (Auto) 0.0 10^3/uL (0.0-0.1) 07/21/22 19:00 Nucleated RBC % (auto) 0 % 07/21/22 19:00 Nucleated RBCs # 0.0 /100WBC 07/21/22 19:00 Sodium 139 mmol/L (136-145) 07/21/22 19:00 Potassium 4.6 mmol/L (3.5-5.1) 07/21/22 19:00 Chloride 106 mmol/L (98-107) 07/21/22 19:00 Carbon Dioxide 24 mmol/L (22-29) 07/21/22 19:00 Anion Gap 13.6 (5-19) 07/21/22 19:00 BUN 9 mg/dL (6-20) 07/21/22 19:00 Creatinine 0.6 mg/dL (0.5-0.9) 07/21/22 19:00 GFR Calculation 113.8 mL/min (90-130) 07/21/22 19:00 Glucose 106 mg/dL (65-115) 07/21/22 19:00 Calculated Osmolality 287 mOsm/kg (285-295) 07/21/22 19:00 Calcium 8.8 mg/dL (8.5-10.5) 07/21/22 19:00 Total Bilirubin 0.2 mg/dL (0.15-1.2) 07/21/22 19:00 AST 19 U/L (0-32) 07/21/22 19:00 ALT 16 U/L (0-33) 07/21/22 19:00 Alkaline Phosphatase 54 U/L (35-105) 07/21/22 19:00 Total Protein 7.4 g/dL (6.6-8.7) 07/21/22 19:00 Albumin 4.4 g/dL (3.5-5.2) 07/21/22 19:00 Globulin 3.0 g/dL (1.3-4.6) 07/21/22 19:00 TSH 1.86 uIU/mL (0.27-4.20) 07/21/22 19:00 HCG, Qual Negative (Negative) 07/21/22 19:00 Salicylates < 0.3 mg/dL (3-10) L 07/21/22 19:00 Urine Opiates Screen Negative ng/mL (Negative) 07/21/22 19:05 Acetaminophen < 5.0 ug/mL (10-30) L 07/21/22 19:00 Ur Barbiturates Screen Negative ng/mL (Negative) 07/21/22 19:05 Ur Phencyclidine Scrn Negative ng/mL (Negative) 07/21/22 19:05 Ur Amphetamines Screen Negative ng/mL (Negative) 07/21/22 19:05 U Benzodiazepines Scrn Negative ng/mL (Negative) 07/21/22 19:05 Urine Cocaine Screen Negative ng/mL (Negative) 07/21/22 19:05 U Marijuana (THC) Screen Negative ng/mL (Negative) 07/21/22 19:05 Ethyl Alcohol < 10 mg/dL (0-10) 07/21/22 19:00 Discharge Plan Discharge Patient Disposition: Placed in Observation Admit Provider: Jason Montejo Clinical Impression: Intentional self-harm Discharge Diet: Regular Discharge Activity: Resume usual activity Coding Level of Care Code ED General Assembler Installer for Royce De La Vega
[2022-07-21 18:48] VITALS: RESP 18; O2SAT 95
[2022-07-21 19:16] LABS: Basophils % 0.1 %; Eosinophils % 0.5 %; Hematocrit 44.8 % (37.0-47.0); Hemoglobin 14.1 g/dL (11.5-15.3); Lymphocytes # 1.7 10^3/uL (0.8-4.8); Lymphocytes % 20.3 %; Mean Corpuscular HGB Conc 31.5 g/dL (30.0-36.0); Mean Corpuscular Hemoglobin 28.3 pg (28.0-34.0); Mean Corpuscular Volume 89.8 fl (81-99); Mean Platelet Volume 8.8 fL (7.4-10.4); Monocytes # 0.4 10^3/uL (0.2-0.9); Monocytes % 4.9 %; Neutrophils # 6.28 10^3/uL (1.8-7.7); Neutrophils % 73.8 %; Nucleated Red Blood Cells % 0 %; Platelet Count 254 10^3/cmm (130-400); Red Blood Count 4.99 10^6/uL (4.1-5.3); Red Cell Distribution Width 12.2 % (12.1-15.1); White Blood Count 8.5 10^3/uL (4.0-10.0)
[2022-07-21 19:26] LABS: HCG, Serum Qual Negative (Negative)
[2022-07-21 19:41] LABS: Amphetamines Screen Urine Negative (Negative); Barbiturates Screen Urine Negative (Negative); Benzodiazepines Screen Urine Negative (Negative); Cocaine Screen Urine Negative (Negative); Opiate Screen Urine Negative (Negative); PCP Screen Urine Negative (Negative); THC Screen Urine Negative (Negative)
[2022-07-21 19:46] LABS: Alanine Aminotransferase 16 U/L (0-33); Albumin Level 4.4 g/dL (3.5-5.2); Alkaline Phosphatase 54 U/L (35-105); Anion Gap 13.6 (5-19); Aspartate Amino Transferase 19 U/L (0-32); Blood Urea Nitrogen 9 mg/dL (6-20); Calcium 8.8 mg/dL (8.5-10.5); Carbon Dioxide 24 mmol/L (22-29); Chloride 106 mmol/L (98-107); Glomerular Filtration Rate 113.8 mL/min (90-130); Glucose 106 mg/dL (65-115); Osmolality Calculated 287 mOsm/kg (285-295); Potassium 4.6 mmol/L (3.5-5.1); Sodium 139 mmol/L (136-145); Thyroid Stimulating Hormone 1.86 uIU/mL (0.27-4.20); Total Bilirubin 0.2 mg/dL (0.15-1.2); Total Protein 7.4 g/dL (6.6-8.7)
[2022-07-21 19:47] LABS: Acetaminophen < 5.0 ug/mL (10-30); Alcohol Level < 10 mg/dL (0-10); Salicylate < 0.3 mg/dL (3-10)
[2022-07-21 20:56] VITALS: BP 95/61; PULSE 91; RESP 18; TEMP 36.7; O2SAT 98
--- NOTE | 2022-07-21 21:00 | PC.NURSE ---
Pt served with copy of 96 HR right paperwork by this nurse and security. All questions answered.
[2022-07-21 22:00] VITALS: BP 95/61; PULSE 91; RESP 18; TEMP 36.7; O2SAT 98
--- NOTE | 2022-07-21 22:13 | PC.NURSE ---
Pt admitted from ER, presents to unit w/security and RN from ER at side. Pt is evasive when asking interview questions stating I have seen outpt before but I stopped going. At one point I got information regarding becoming a counselor from them, because I have the experience to help people . I tried all of these drugs in my life to have a better understanding of what others are going to through It's important to not be judgmental . Pt appears disheveled, but clean. Superficial cuts/abrasions to left FA, multiple bug bites all over body. Pt states mosquito bites.
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
[2022-07-22 14:00] VITALS: BP 106/46; PULSE 80; RESP 16; TEMP 36.7; O2SAT 100
[2022-07-22] MEDS: OLANZapine 5 mg ODT PO (17:32)
[2022-07-22 21:29] VITALS: BP 110/69; PULSE 97; RESP 17; TEMP 36.6; O2SAT 99
[2022-07-23 06:00] VITALS: RESP 18
[2022-07-23] MEDS: fluoxetine 20 mg Capsule PO (11:04)
[2022-07-23] MEDS: gabapentin 300 mg Capsule PO ×2 (11:14→14:46)
--- NOTE | 2022-07-23 12:35 | PC.NURSE ---
pt at nurses station asking about how to apply for a job here at [facility], wanting to make sure doctor concha is aware she has a plan inorder to take care of herself and get on her feet.
--- NOTE | 2022-07-23 12:39 | P.NPUPN_ITS ---
Subjective NPU Subjective: Patient presented today reporting that she feels she is doing fine and was very frustrated that she was not discharged. 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 She reports she is fine and wants to discharge soon as possible but is aware she is on a 96-hour hold. Mental Status Exam MSE Comments: This is a a well-nourished well-developed white female in hospital scrubs with adequate grooming and eye contact.? No abnormal movements except for mild psychomotor agitation.? Cooperative with exam in no acute distress.? Speech was slightly increased rate but normal volume.? Mood described as okay, affect irritable.? Thought process organized.? Thought content: Patient denied suicidal or homicidal ideation, there were no delusions reported or noted, she denied any auditory or visual hallucinations.? Attention and concentration were intact and memory appeared mostly reliable but none were formally tested.? She is alert and oriented x3.? Insight and judgment appeared fair for the most part and impulse control is limited Vitals/I&O/Wt Last Vital Signs Temp 97.9 F 07/22/22 21:29 Pulse 97 07/22/22 21:29 Resp 18 07/23/22 06:00 BP 110/69 07/22/22 21:29 Pulse Ox 99 07/22/22 21:29 O2 Del Method Room Air 07/22/22 21:29 Weight last 48 hrs Weight 68.039 kg Data NPU 07/21/22 19:00 07/21/22 19:00 A&P Assessment and plan (1) Depression: Qualifiers: Depression Type: major depressive disorder Major depression recurrence: recurrent Active/Remission status: currently active Major depression episode severity: severe Psychotic features: without psychotic features Qualified Code(s): F33.2 - Major depressive disorder, recurrent severe without psychotic features (2) Anxiety: (3) Methamphetamine use disorder, severe, in sustained remission, dependence: (4) Intentional self-harm: (5) Cannabis use disorder, severe, in sustained remission, dependence: (6) Parent-child relational problem: Plan This is a 36-year-old white female with a history of being psychotic when positive on methamphetamine, with cannabis and alcohol addiction history presents a year after her last hospitalization with a conflict with her mother but a clean UDS on a 96-hour hold. Plan: 1.? Continue current medication.? 2.? Continue every 15 minute checks for safety. 3.? Encourage individual, group and milieu therapies. 4.? Encourage sober living treatment after discharge at the highest level of care to which she is willing to commit. 5.? We will explore safety for discharge against the backdrop of the 96-hour hold. Involuntary Hold Information 96 Hour Hold: 96 Hour Involuntary Admission: Yes 96 Hour Hold Ending Date: 07/27/22 96 Hour Hold Ending Time: 20:10 Attestations NPU Medical Necessity Statement*: Inpatient hospitalization is medically necessary and the clinically appropriate intervention at this time. We will monitor medication to make changes as indicated.Likely length of stay 1-3 days. Coding Level of Care Code Acute Code for [facility] Fwd Diagnoses Depression F33.2 Depression Type: major depressive disorder Major depression recurrence: recurrent Active/Remission status: currently active Major depression episode severity: severe Psychotic features: without psychotic features Anxiety F41.9 Methamphetamine use disorder, severe, in sustained remission, dependence F15.21 Intentional self-harm Cannabis use disorder, severe, in sustained remission, dependence F12.21 Parent-child relational problem Z62.820
[2022-07-23 14:00] VITALS: BP 109/67; PULSE 103; RESP 16; TEMP 36.9; O2SAT 100
[2022-07-23] MEDS: neomycin-poly-bacitracin oint 28 gm 1 APPLIC TOPICAL ×2 (14:53→18:00)
[2022-07-23] MEDS: ibuprofen 600 mg Tablet PO (17:57)
[2022-07-23] MEDS: trazodone 50 mg Tablet PO (21:24)
[2022-07-23 22:06] VITALS: BP 128/76; PULSE 84; RESP 14; TEMP 36.8; O2SAT 98
[2022-07-24 06:00] VITALS: BP 89/46; PULSE 100; RESP 18; TEMP 36.6; O2SAT 96
[2022-07-24] MEDS: ibuprofen 600 mg Tablet PO (06:15)
[2022-07-24] MEDS: OLANZapine 5 mg ODT PO (08:16)
[2022-07-24] MEDS: gabapentin 300 mg Capsule PO (08:17)
[2022-07-24] MEDS: fluoxetine 20 mg Capsule PO (08:17)
[2022-07-24] MEDS: neomycin-poly-bacitracin oint 28 gm 1 APPLIC TOPICAL (08:20)
--- NOTE | 2022-07-24 09:25 | PC.NURSE ---
PT IN HALLWAY VERY ANIMATED WITH SPEECH AND HAS PRESSURED SPEECH. OBSERVED TO BE INTRUSIVE, DEMANDING AND IMPULSIVE AT TIMES. DENIES SI/HI AND AVH AT THIS TIME. DENIES PAIN. PT IS OBSERVED TO HAVE SUPERFICIAL CUTS ON LEFT FOREARM, OPEN TO AIR. NO REDNESS OR DRAINAGE OBSERVED. PT STATES SHE HAS BEEN UP AND DOWN ALL NIGHT AND DID NOT SLEEP WELL. PT WAS EDUCATED TO ASK NURSE FOR A PRN MEDICATION IF SHE NEEDS IT. PT STATES SHE WILL TONIGHT IF SHE DOES NOT SLEEP. PT LEFT GREAT TOE WITH BLISTER, CHANGED BANDAID WITH ANTIBIOTIC OINTMENT. AREA IS MILDLY RED AND BLISTER HAS OPENED UP. AREA WAS COVERED, SEE MAR FOR DETAILS. PT WAS GIVEN ZYDIS ODT 5 MG WITH AM MEDICATIONS DUE TO INCREASED ANXIEYT. WHEN PT TOOK ZYDIS PT STATED I'M NOT TAKING THAT AGAIN, I DON'T LIKE IT. PT WAS EDUCATED THAT SHE CAN TAKE A SIP OF WATER IF NEEDED IF THE MEDICATION TASTE BAD. PT STORMED OFF MUTTERING UNDER HER BREATH. ALL QUESTIONS ANSWERED AND SUPPORT WAS VOICED.
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
[2022-07-24 12:49] VITALS: BP 89/46; PULSE 100; RESP 18; TEMP 36.6; O2SAT 96
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
== END 2022-07-24 13:09 | disposition home or self-care (01) | DRG 885 ==
LOC: ER 19:56 → NP 20:50
PROVIDERS: Admitting Provider Psychiatry & Neurology Psychiatry; Emergency Provider Emergency Medicine; PCP Family Medicine; Visit Provider Psychiatry & Neurology Psychiatry
DX: F33.2 Major depressive disorder, recurrent severe without psychotic features (principal); F41.9 Anxiety disorder, unspecified; K21.9 Gastro-esophageal reflux disease without esophagitis; F17.210 Nicotine dependence, cigarettes, uncomplicated; Z81.8 Family history of other mental and behavioral disorders; Z91.52 Personal history of nonsuicidal self-harm; Z62.820 Parent-biological child conflict; F12.21 Cannabis dependence, in remission; F15.21 Other stimulant dependence, in remission; F10.90 Alcohol use, unspecified, uncomplicated
CPT/HCPCS: 36415; 80053; 80306; 80307; 84443; 84703; 85025; 97150; 97165; 99238; 99285

== ENCOUNTER 2024-09-25 01:35 | Inpatient (IN) | payer MEDICAID, SELFPAY ==
[2024-09-25 01:35] VITALS: BP 137/91; PULSE 100; RESP 16; TEMP 36.8; O2SAT 98; BMI 24.0
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
[2024-09-25 02:17] LABS: PCP Screen Urine Negative (Negative)
[2024-09-25 02:32] LABS: Hematocrit 37.5 % (36-47); Hemoglobin 12.40 g/dL (11.27-16.99); Mean Corpuscular HGB Conc 33.1 g/dL (30-55); Mean Corpuscular Hemoglobin 26.1 pg (27-33); Mean Corpuscular Volume 78.8 fl (85-98); Nucleated Red Blood Cells % 0 %; Platelet Count 336 10^3/cmm (157-399); Red Blood Count 4.76 10^6/uL (3.85-5.65); White Blood Count 9.87 10^3/uL (3.29-11.43)
[2024-09-25 02:45] LABS: HCG, Serum Qual Negative (Negative)
[2024-09-25 02:56] LABS: Acetaminophen < 5.0 ug/mL (10-30); Alanine Aminotransferase 18 U/L (0-33); Albumin Level 4.1 g/dL (3.5-5.2); Alcohol Level < 10 mg/dL (0-10); Alkaline Phosphatase 67 U/L (35-105); Anion Gap 20.0 (5-19); Aspartate Amino Transferase 20 U/L (0-32); Blood Urea Nitrogen 13 mg/dL (6-20); Calcium 9.9 mg/dL (8.5-10.5); Carbon Dioxide 20 mmol/L (22-29); Chloride 99 mmol/L (98-107); Creatinine Clr Calc Pharmacy 136.4700; Globulin 3.5 g/dL (1.3-4.6); Glucose 110 mg/dL (65-115); Osmolality Calculated 283 mOsm/kg (285-295); Potassium 3.0 mmol/L (3.5-5.1); Salicylate 0.4 mg/dL (3-10); Sodium 136 mmol/L (136-145); Total Protein 7.6 g/dL (6.6-8.7)
--- NOTE | 2024-09-25 03:38 | PC.NURSE ---
96 [facility] Pt served with copy of 96 [facility] by this RN and security. Pt alert and oriented, no questions at this time.
--- NOTE | 2024-09-25 05:29 | PC.NURSE ---
pt pain upon admission pt states she as back pain. will not elaborate further.
--- NOTE | 2024-09-25 05:38 | PC.NURSE ---
pt admission pt is a poor historian with flight of ideas during admission assessment. may need to be re-performed later.
[2024-09-25 05:45] VITALS: BP 122/61; PULSE 123; RESP 22; TEMP 36.3; O2SAT 98
[2024-09-25 06:00] VITALS: BP 122/61; PULSE 123; RESP 22; TEMP 523.3; TEMP 974; O2SAT 98
--- NOTE | 2024-09-25 09:20 | PC.NURSE ---
pt stating she is seeing maggots in the blood when she wipes, pt went to restroom and wiped but no maggots visual at this time... instructed pt to let nurse know when it happens again.
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
--- NOTE | 2024-09-25 11:05 | PC.NURSE ---
pt called staff into room - pt upset talking about having lost her mucus plug last night in the bathroom and having contractions for hours then she looked down an it was gone and she is needing someone to find out about that. pt then stated she had been in her camper before coming and needs to know how she lost period of time and why Prateek was trying to get into her camper. and that if what they were saying about Markell Vu being her she will need to see paperwork on her marriage that they were saying that last time she was here but she doesn't even see him or live with him and if she is don't you think she would. staff needs to know that she is very sensitive when talking about having a baby because pt states she is closed to being that they keep telling her that the last time she was here she had a baby and then before she left they put the baby up for adoption and she needs us to find out about that as well. pt states she has really worked on not being a whore anymore and that for them to say she had sex and a baby with her nephew son Bebeto is just wrong she would not do that.
--- NOTE | 2024-09-25 12:28 | P.NPUHP_ITS ---
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 Hospitalist referral for possible right cubital fossa infection. 2. Continue every 15 minute checks for safety. 3. Encourage individual, group and milieu therapies. 4. Encourage sober living treatment after discharge at the highest level of care to which she is willing to commit. 5. We will monitor for safety for herself in the community prior to discharge. PDMP PDMP Reviewed: Not Reviewed Involuntary Hold Information 2 Hold Status: Legal Status: 96 Hour Hold Date/Time Hold Expires: 09/29/24 0135 96 Hour Hold: 96 Hour Involuntary Admission: Yes Attestations NPU 2 Medical Necessity Statement*: Inpatient hospitalization is medically necessary and the clinically appropriate intervention at this time. We will monitor medication to make changes as indicated. Patient will be in the hospital for over two midnights. The patient's likely length of stay is 3-5 days. Coding Level of Care Code Acute Code for [facility] Fwd Diagnoses Acute psychosis F23 Methamphetamine abuse F15.10
[2024-09-25] MEDS: blistex lip oint 7 gm Tube 1 APPLIC TOPICAL (12:30)
--- NOTE | 2024-09-25 12:36 | PC.NURSE ---
pt has raised area on right forearm Dr mckay.
[2024-09-25 13:50] VITALS: PULSE 109; RESP 16; TEMP 36.4; O2SAT 98
--- NOTE | 2024-09-25 14:11 | P.CONIM_ITS ---
Providers/Reason For Consult 2 Consulting Physician/Specialty*: Neuro psychiatry Reason for Consult*: swelling in the right forearm antecubital fold Requesting Physician: Evelio Woodruff MD Attending Physician: Jason Montejo MD Primary Care Provider: Baldemar Rivero MD History of Present Illness History of Present Illness History as per the retrospective notes and the patient Naida Carbajal is a 38 year old female a history of multiple inpatient psychiatric hospitalizations with a history of stimulant induced psychotic disorder who presented to the emergency department with auditory and visual hallucinations along with bizarre delusions. Internal medicine team consulted for Right forearm antecubital fossa swelling. Upon further history the patient reported that the swelling has been there for a couple of days or weeks but not sure the exact duration. She has been using active drugs injected during into the forearm as well and noticed the swelling which later on increased in size. There was no fever, change in the arm sensations, any limitation of her movement. Or any discharge from the swelling. There was no tenderness reported at any point during noticing of the swelling. No other such lumps and bumps since noticed in any part of the body as per the patient. There is no associated weight loss night sweats or continuous fevers reported by the patient. Review of Systems 2 General: Reports: 10 or more systems reviewed and unremarkable except in HPI and below Skin/Breast: Reports: skin swelling (Right forearm antecubital fossa swelling) Psych: Reports: auditory hallucinations and other (Polysubstance abuse ) Medications/Allergies Home Medications ?Medication ?Instructions ?Recorded ?Confirmed ?Last Taken ?Type gabapentin 300 mg capsule 300 mg PO TID 30 days #90 ca ps 07/24/22 09/25/24 Unknown Rx trazodone 50 mg tablet 50 mg PO BEDTIME PRN Sleep 3 0 days 07/24/22 Unknown Rx #30 tabs fluoxetine 20 mg capsule (Prozac) 40 mg PO DAILY 09/2509/25/24 Unknown History Allergies Allergy/AdvReac Type Severity Reaction Status Date / Time No Known Allergies Allergy Verified 07/21/22 18:36 Current Medications Generic Name Dose Route Start Last Admin Trade Name Freq PRN Reason Stop Dose Admin Alprazolam 0.5 mg 09/25/24 09:29 09/25/24 10:40 Alprazolam 0.5 Mg Tablet PO 0.5 mg DAILY PRN Administration ANXIETY Camphor/Menthol/Phenol 1 applic 09/25/24 05:45 09/25/24 12:30 Blistex Lip Oint 7 Gm Tube TOPICAL 1 applic Q1H PRN Administration DRYNESS Fluoxetine HCl 40 mg 09/25/24 09:00 09/25/24 09:26 Fluoxetine 20 Mg Capsule PO 40 mg DAILY DEBORA Administration Gabapentin 300 mg 09/25/24 09:00 09/25/24 09:26 Gabapentin 300 Mg Capsule PO 300 mg TID DEBORA Administration PFSH Acute 2 PFSH: Medical History (Updated 09/25/24 @ 15:18 by Jw Navarro MD) Substance abuse Substance induced mood disorder Alcohol use Depression Methamphetamine abuse No pertinent past medical history Denies diabetes, asthma, hypertension, seizures, DVT/PE PMD-Dr. Farr Anxiety Diagnosed in about 2015 and she used to take alprazolam as needed for this. She states that she currently has a therapist whom she talks to and this helps. She follows with her primary care provider Dr. Farr GERD (gastroesophageal reflux disease) Surgical History S/P laparoscopic sleeve gastrectomy S/P wisdom tooth extraction History of esophagogastroduodenoscopy (EGD) 06/2019 History of tonsillectomy 06/2019 at the age of [address] Brito as this was thought to contribute to sleep apnea History of tubal ligation post tubal ligation by Dr. Quiroz at [facility]. 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 Family History Father Diabetes Family/Other Diabetes maternal aunt Grandmother Diabetes maternal Stroke paternal Grandfather Stroke paternal and maternal Denies family history of Cervical cancer Colon cancer Ovarian cancer DVT (deep venous thrombosis) Heart disease Hyperlipidemia Breast cancer Anesthesia complication Bleeding disorder Pulmonary embolism Hypertension Uterine cancer Thyroid disease Social History Smoking and tobacco/nicotine status: current every day tobacco/nicotine user Alcohol intake: never Substance/Drug Use: current Substance/Drug use frequency: few times a week Additional social history: - Tobacco Use: Denies current or past use Drug Use: Used marijuana a couple of times as a teenager; denies any other drug use Alcohol Use: Denies 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 Adopted: No Caregiver/support person: Yes Lives independently: Yes Household members: spouse Housing: House service: No Current occupational status: employed Pets and animals: No Sexually active: No Do you think of yourself as: Straight/Heterosexual Special christiano needs: No Vitals/I&O/Wt Last Vital Signs Temp 97.6 F 09/25/24 13:50 Pulse 109 H 09/25/24 13:50 Resp 16 09/25/24 13:50 BP 122/61 09/25/24 06:00 Pulse Ox 98 09/25/24 13:50 O2 Del Method Room Air 09/25/24 13:50 Weight last 48 hrs Weight 61.689 kg Physical Exam 2 Narrative: On general inspection the patient was lying comfortably on room air and able to follow commands, cooperative during history and physical examination, noticed having multiple needle rea and small lacerations over the arm. Having some minor hypopigmentation/depigmentation over the face skin possible Malassezia or fungal infection. Const: OTHER: The patient looks unkempt, possibility of mild malnourishment could be the present due to history of drug abuse and multiple needle rea and small abrasions over both arms bilaterally Resp: OTHER: Bilateral equal air entry and normal vesicular breathing without any added sounds, unremarkable respiratory examination Cardio: OTHER: Normal peripheral pulses with good volume, regular, S1 and S2 normal without any added sounds or murmurs. Patient looks euvolemic GI: OTHER: Unremarkable GI examination, no organomegaly or tenderness Normal bowel sounds Extremity: RIGHT UPPER EXTREMITY: Yes elbow joint OTHER: Right antecubital fossa swelling, mild fluctuant and redness noticed without any discharge, mild scratch rea present on the swelling. Nontender. Normal temperature of the skin above the swelling. Peripheral pulses palpable and no limitation of patient's movement of the oral Data 09/25/24 02:20 09/25/24 02:20 A&P Assessment and plan 1. Pain and swelling of right forearm: Right forearm collection at the antecubital fossa. Plan: - CT scan of the right forearm further evaluation of the swelling as per the surgery recs - Surgery consulted already - cefepime 2gm bid for 10 day - Internal medicine will follow the patient for further improvement Plan: Naida Carbajal is a 38 year old female a history of multiple inpatient psychiatric hospitalizations with a history of stimulant induced psychotic disorder who presented to the emergency department with auditory and visual hallucinations along with bizarre delusions. Internal medicine team consulted for Right forearm antecubital fossa swelling. PDMP PDMP Reviewed: Not Reviewed Consult Attestations 2 Medical Necessity Statement: defer to the primary physician Critical Care Time: Critical Care Time (min): 50 Other Attestations: Other Attestations: On-call surgery contacted, patient further plan of care discussed with the patient and also the surgeon made aware. Surgery consult placed and the medicine team will follow. Coding Level of Care Code 24596 Diagnoses Pain and swelling of right forearm M79.631; M79.89
[2024-09-25 15:46] LABS: Hepatitis A Antibody IgM Non-Reactive (Nonreactive); Hepatitis B Surface Antigen Non-Reactive (Nonreactive)
--- NOTE | 2024-09-25 17:17 | CTR_ITS ---
PROCEDURE INFORMATION: Exam: CT Right Upper Extremity Without Contrast, Forearm Exam date and time: 09/25/2024 5:33 PM Age: 38 years old Clinical indication: Pain; Elbow; Right; Additional info: Right forearm swelling, concerning for abscess/ collection TECHNIQUE: Imaging protocol: Computed tomography of the right upper extremity without contrast. Exam focused on the forearm. Radiation optimization: All CT scans at this facility use at least one of these dose optimization techniques: automated exposure control; mA and/or kV adjustment per patient size (includes targeted exams where dose is matched to clinical indication); or iterative reconstruction. COMPARISON: No relevant prior studies available. RADIATION DOSE METRICS: Total DLP (mGy-cm): 179.67 FINDINGS: Bones/joints: Normal. No acute fracture or dislocation. Soft tissues: At the site of radiopaque marker, there is subcutaneous inflammatory changes possibly related to infection, inflammation, or hemorrhage from cephalic vein. No well-defined focal collection to suggest abscess. CT/CT forearm RT wo con* [id number] IMPRESSION: At the site of radiopaque marker, there is subcutaneous inflammatory changes possibly related to infection, inflammation, or hemorrhage from cephalic vein. No well-defined focal collection to suggest abscess.
--- NOTE | 2024-09-25 17:32 | PC.NURSE ---
off unit for ct accompanied by staff and security
--- NOTE | 2024-09-25 18:04 | PC.NURSE ---
back on unit
--- NOTE | 2024-09-25 18:40 | P.CONIM_ITS ---
Providers/Reason For Consult 2 Consulting Physician/Specialty*: Dr. Lopez general surgery Reason for Consult*: Arm abscess Attending Physician: Zak Woodruff MD Primary Care Provider: Baldemar Rivero MD History of Present Illness History of Present Illness Naida Carbajal is a 38 year old female whom surgery was consulted to rule out a right AC fossa abscess. No leukocytosis. No fevers. CT scan did not show an abscess. Findings most consistent with a hematoma. Medications/Allergies Home Medications ?Medication ?Instructions ?Recorded ?Confirmed ?Last Taken ?Type gabapentin 300 mg capsule 300 mg PO TID 30 days #90 ca ps 07/24/22 09/25/24 Unknown Rx trazodone 50 mg tablet 50 mg PO BEDTIME PRN Sleep 3 0 days 07/24/22 09/26/24 Unknown Rx #30 tabs fluoxetine 20 mg capsule (Prozac) 40 mg PO DAILY 09/2509/25/24 Unknown History Allergies Allergy/AdvReac Type Severity Reaction Status Date / Time No Known Allergies Allergy Verified 07/21/22 18:36 Current Medications Generic Name Dose Route Start Last Admin Trade Name Freq PRN Reason Stop Dose Admin Alprazolam 0.5 mg 09/25/24 09:29 09/25/24 10:40 Alprazolam 0.5 Mg Tablet PO 0.5 mg DAILY PRN Administration ANXIETY Camphor/Menthol/Phenol 1 applic 09/25/24 05:45 09/25/24 12:30 Blistex Lip Oint 7 Gm Tube TOPICAL 1 applic Q1H PRN Administration DRYNESS Fluoxetine HCl 40 mg 09/25/24 09:00 09/25/24 09:26 Fluoxetine 20 Mg Capsule PO 40 mg DAILY DEBORA Administration Gabapentin 300 mg 09/25/24 09:00 09/25/24 16:29 Gabapentin 300 Mg Capsule PO 300 mg TID DEBORA Administration PFSH Acute 2 PFSH: Medical History (Updated 09/25/24 @ 15:18 by Jw Navarro MD) Substance abuse Substance induced mood disorder Alcohol use Depression Methamphetamine abuse No pertinent past medical history Denies diabetes, asthma, hypertension, seizures, DVT/PE PMD-Dr. Farr Anxiety Diagnosed in about 2015 and she used to take alprazolam as needed for this. She states that she currently has a therapist whom she talks to and this helps. She follows with her primary care provider Dr. Farr GERD (gastroesophageal reflux disease) Surgical History S/P laparoscopic sleeve gastrectomy S/P wisdom tooth extraction History of esophagogastroduodenoscopy (EGD) 06/2019 History of tonsillectomy 06/2019 at the age of [address] Brito as this was thought to contribute to sleep apnea History of tubal ligation post tubal ligation by Dr. Quiroz at [facility] [place]. 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 Family History Father Diabetes Family/Other Diabetes maternal aunt Grandmother Diabetes maternal Stroke paternal Grandfather Stroke paternal and maternal Denies family history of Cervical cancer Colon cancer Ovarian cancer DVT (deep venous thrombosis) Heart disease Hyperlipidemia Breast cancer Anesthesia complication Bleeding disorder Pulmonary embolism Hypertension Uterine cancer Thyroid disease Social History Smoking and tobacco/nicotine status: current every day tobacco/nicotine user Alcohol intake: never Substance/Drug Use: current Substance/Drug use frequency: few times a week Additional social history: - Tobacco Use: Denies current or past use Drug Use: Used marijuana a couple of times as a teenager; denies any other drug use Alcohol Use: Denies 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 No lymphadenopathy. Heart: Regular rate and rhythm. Abdomen: Soft, nontender, nondistended. No masses or lymphadenopathy. Right arm: AC fossa with no cellulitis. Nontender. Fullness most consistent with old hematoma. Data 09/25/24 02:20 09/25/24 02:20 A&P Assessment and plan 1. Lump: 2. Pain and swelling of right forearm: Plan: 38-year-old female with a right antecubital fossa hematoma. No concern for an abscess. Can treat with a short course of oral antibiotics. Rest of care per hospitalist. PDMP PDMP Reviewed: Not Reviewed Coding Level of Care Code 74662 Diagnoses Lump Pain and swelling of right forearm M79.631; M79.89
[2024-09-25 22:00] VITALS: BP 96/63; PULSE 104; RESP 17; O2SAT 98
[2024-09-26 06:00] VITALS: BP 98/61; PULSE 85; RESP 18; TEMP 36.5; O2SAT 98
--- NOTE | 2024-09-26 10:32 | P.PN_ITS ---
Subjective 2 Subjective: No erythema Afebrile No leukocytosis CT scan did not show an abscess. Findings most consistent with a hematoma. Vitals/I&O/Wt Last Vital Signs Temp 97.7 F 09/26/24 06:00 Pulse 85 09/26/24 06:00 Resp 18 09/26/24 06:00 BP 98/61 09/26/24 06:00 Pulse Ox 98 09/26/24 06:00 O2 Del Method Room Air 09/26/24 06:00 Weight last 48 hrs Weight 136 lb Physical Exam 2 Narrative: Chest: Unlabored breathing room air. No lymphadenopathy. Heart: Regular rate and rhythm. Abdomen: Soft, nontender, nondistended. No masses or lymphadenopathy. Right antecubital fossa nontender, no erythema, there is some fullness to the area Data 09/25/24 02:20 09/25/24 02:20 A&P Assessment and plan 1. Pain and swelling of right forearm: Plan: 38-year-old female whom surgery was consulted to rule out a right antecubital fossa abscess. Findings most consistent with an old hematoma. No erythema. No leukocytosis. Nontender. Afebrile. From a surgical perspective no indication for any procedures. Can transition to oral antibiotics. Rest of care per hospitalist. PDMP PDMP Reviewed: Not Reviewed Attestations 2 Medical Necessity Statement*: N/A Coding Level of Care Code Acute Code for [facility] Fwd Diagnoses Pain and swelling of right forearm M79.631; M79.89
--- NOTE | 2024-09-26 11:37 | PC.NURSE ---
Pt requested to be seen by multiple medical doctors, and to have all infectious tests run while she is on the Neuro unit. Pt stated that she needs a whole body wellness check and that will help her mental status.
[2024-09-26 14:00] VITALS: BP 110/66; PULSE 97; RESP 18; TEMP 36.5; O2SAT 100
--- NOTE | 2024-09-26 14:04 | P.NPUPN_ITS ---
Subjective NPU 2 Subjective: 38-year-old female with history of metha mphetamine induced psychosis admitted with delusions and auditory hallucinations. Patient had continued to minimize having any problems with addiction. She had remained isolative on the milieu. She had reported that she did not feel that she needed to be here. She had reported that her problems were mental and physical but did not elaborate. The patient had reported some improved sleep last night with her medications. She had reported that she was capable of returning home soon. She states that she did not think that she needed help with her methamphetamine use. Mental Status Exam 2 MSE Comments: This is an underweight, thin white female in hospital scrubs with limited grooming and eye contact. There appeared to be pick rea on her right arm. There was evidence of increased involuntary motor movements appreciated. There was evidence of increased psychomotor agitation. She was somewhat cooperative on examination. Her speech was rambling and circuitous with normal volume and increased productivity. Mood described as i don't think I need to be here Her affect was labile. Thought process was tangential. Thought content: Patient denied suicidal or homicidal ideation. There was no evidence of bizarre delusions although she had ideas of reference. She denied somatic complaints today. Attention and concentration were limited and memory appeared unreliable but none were formally tested.? She is alert and oriented to person and place but not time.? Insight and judgment were impaired. Impulse control is impaired. Vitals/I&O/Wt Last Vital Signs Temp 97.7 F 09/26/24 06:00 Pulse 85 09/26/24 06:00 Resp 18 09/26/24 06:00 BP 98/61 09/26/24 06:00 Pulse Ox 98 09/26/24 06:00 O2 Del Method Room Air 09/26/24 06:00 Weight last 48 hrs Weight 61.689 kg Data NPU 09/25/24 02:20 09/25/24 02:20 A&P Assessment and plan 1. Pain and swelling of right forearm: 2. Acute psychosis: 3. Methamphetamine abuse: Plan: This is a 38-year-old female with methamphetamine induced psychosis with genetic loading for bipolar I disorder currently on a hold. Plan: 1. Invega 3mg at night. Appreciate medical/surgical input regarding infection. 2. Continue every 15 minute checks for safety. 3. Encourage individual, group and milieu therapies. 4. Encourage sober living treatment after discharge at the highest level of care to which she is willing to commit. 5. We will monitor for safety for herself in the community prior to discharge. PDMP PDMP Reviewed: Not Reviewed Involuntary Hold Information 2 Hold Status: Legal Status: 96 Hour Hold Date/Time Hold Expires: 09/26/24 @ 01:35 96 Hour Hold: 96 Hour Involuntary Admission: Yes Attestations NPU 2 Medical Necessity Statement*: Inpatient hospitalization is medically necessary and the clinically appropriate intervention at this time. We will monitor medication to make changes as indicated. The patient's likely length of stay is 3-5 days. Coding Level of Care Code Acute Code for [facility] Fwd Diagnoses Pain and swelling of right forearm M79.631; M79.89 Acute psychosis F23 Methamphetamine abuse F15.10
[2024-09-26] MEDS: neomycin-poly-bacitracin oint 28 gm 1 APPLIC TOPICAL (17:17)
[2024-09-26] MEDS: tetanus-diphtheria tox (adult) 0.5 mL SYRINGE IM (17:18)
[2024-09-26 19:06] VITALS: BP 101/64; PULSE 84; RESP 16; TEMP 37.1; O2SAT 100
[2024-09-26 22:59] LABS: Trichomonas vaginalis (PCR) NOT DETECTED (Negative)
[2024-09-26 23:25] LABS: Neisseria Gonorrhea NOT DETECTED (Negative)
[2024-09-27 06:00] VITALS: BP 96/63; PULSE 80; RESP 16; TEMP 36.6; O2SAT 99
--- NOTE | 2024-09-27 07:43 | P.PN_ITS ---
Subjective 2 Subjective: the patient is afebrile and doing well, no concerns or any discharge at the swelling site of the right forearm the patient however informed having a left foot pain on and off since many yrs, but able to walk without any difficulty. no limping or any joint swelling noticed by the patient Vitals/I&O/Wt Last Vital Signs Temp 97.9 F 09/27/24 06:00 Pulse 80 09/27/24 06:00 Resp 16 09/27/24 06:00 BP 96/63 09/27/24 06:00 Pulse Ox 99 09/27/24 06:00 O2 Del Method Room Air 09/27/24 06:00 Physical Exam 2 Narrative: On general inspection the patient was lying comfortably on room air and able to follow commands, cooperative during history and physical examination, noticed having multiple needle rea and small lacerations over the arm. Having some minor hypopigmentation/depigmentation over the face skin possible Malassezia or fungal infection and a cream applied on her right cheek likely for a wound. Const: OTHER: The patient looks unkempt, possibility of mild malnourishment could be the present due to history of drug abuse and multiple needle rea and small abrasions over both arms bilaterally Resp: OTHER: Bilateral equal air entry and normal vesicular breathing without any added sounds, unremarkable respiratory examination Cardio: OTHER: Normal peripheral pulses with good volume, regular, S1 and S2 normal without any added sounds or murmurs. Patient looks euvolemic GI: OTHER: Unremarkable GI examination, no organomegaly or tenderness Normal bowel sounds Extremity: NARRATIVE EXTREMITY EXAM: looks unremarkable on exam, no swelling or deformity and no limitation of the movt in all directions LEFT LOWER EXTREMITY: Yes foot & digits OTHER: Right antecubital fossa swelling, mild fluctuant and redness noticed without any discharge, mild scratch rea present on the swelling. Nontender. Normal temperature of the skin above the swelling. Peripheral pulses palpable and no limitation of patient's movement of the oral Data 09/25/24 02:20 09/25/24 02:20 A&P Assessment and plan 1. Pain and swelling of right forearm: Naida Carbajal is a 38 year old female a history of multiple inpatient psychiatric hospitalizations with a history of stimulant induced psychotic disorder who presented to the emergency department with auditory and visual hallucinations along with bizarre delusions. Internal medicine team consulted for Right forearm antecubital fossa swelling. . Plan: - CT scan of the right forearm showed likley subcutaneous inflammatory changes possibly related to infection, inflammation, or hemorrhage from cephalic vein, and surgery reviewed and discussed the case with the author of the note - no need for drainage as per the surgery at the moment and to continue on oral augmentin for 7 days - in case of fever or any signs of cellulitis or worsening of the swelling to re-consult - Internal medicine will sign of PDMP PDMP Reviewed: Not Reviewed Attestations 2 Medical Necessity Statement*: upon discretion of the primary team Coding Level of Care Code 50654 Diagnoses Pain and swelling of right forearm M79.631; M79.89
[2024-09-27] MEDS: multivitamin therapeutic Tablet 1 TAB PO (08:15)
[2024-09-27] MEDS: neomycin-poly-bacitracin oint 28 gm 1 APPLIC TOPICAL ×2 (08:17→18:38)
[2024-09-27 14:00] VITALS: BP 111/52; PULSE 86; RESP 18; TEMP 36.6; O2SAT 96
--- NOTE | 2024-09-27 14:34 | P.NPUPN_ITS ---
Subjective NPU 2 Subjective: 38-year-old female with history of metha mphetamine induced psychosis admitted with delusions and auditory hallucinations. The patient reported no side effects from her medication. She continued to have minimal insight in regards to her illness. She had remained isolative on the milieu. She had stated that she needed more help with her physical problems. She had denied any hallucinations at this time. She had reported that she was not . She had stated that she needed to be checked for a sexually transmitted disease. She had endorsed IV drug use. She had reported that her marriage had been the cause of her problems rather than the continued use of alcohol and methamphetamine. She had reported having problems and requested an increase in her Xanax. Mental Status Exam 2 MSE Comments: This is an underweight, thin white female in hospital scrubs with limited grooming and eye contact. There appeared to be pick era on her right arm. There was evidence of increased involuntary motor movements appreciated. There was continued evidence of increased psychomotor agitation. She was cooperative on examination. Her speech was rambling and circuitous with normal volume and increased productivity. Mood described as okay: Her affect was odd and subdued. Thought process was tangential. Thought content: Patient denied suicidal or homicidal ideation. There was no evidence of bizarre delusions although she had ideas of reference. She denied somatic complaints today. Attention and concentration were limited and memory appeared unreliable but none were formally tested.? She is alert and oriented to person and place but not time.? Insight and judgment were impaired. Impulse control is impaired. Vitals/I&O/Wt Last Vital Signs Temp 97.9 F 09/27/24 06:00 Pulse 80 09/27/24 06:00 Resp 16 09/27/24 06:00 BP 96/63 09/27/24 06:00 Pulse Ox 99 09/27/24 06:00 O2 Del Method Room Air 09/27/24 06:00 Data NPU 09/25/24 02:20 09/25/24 02:20 A&P Assessment and plan 1. Pain and swelling of right forearm: 2. Acute psychosis: 3. Methamphetamine abuse: Plan: This is a 38-year-old female with methamphetamine induced psychosis with genetic loading for bipolar I disorder currently on a hold. Plan: 1. Invega 3mg at night. D/C Xanax. Appreciate medical/surgical input regarding infection. 2. Continue every 15 minute checks for safety. 3. Encourage individual, group and milieu therapies. 4. Encourage sober living treatment after discharge at the highest level of care to which she is willing to commit. 5. We will monitor for safety for herself in the community prior to discharge. PDMP PDMP Reviewed: Not Reviewed Involuntary Hold Information 2 Hold Status: Legal Status: 96 Hour Hold Date/Time Hold Expires: 09/26/24 @ 01:35 96 Hour Hold: 96 Hour Involuntary Admission: Yes Attestations NPU 2 Medical Necessity Statement*: Inpatient hospitalization is medically necessary and the clinically appropriate intervention at this time. We will monitor medication to make changes as indicated. The patient's likely length of stay is 3-5 days. Coding Level of Care Code Acute Code for [facility] Fwd Diagnoses Pain and swelling of right forearm M79.631; M79.89 Acute psychosis F23 Methamphetamine abuse F15.10
[2024-09-27 19:21] VITALS: BP 107/58; PULSE 89; RESP 18; TEMP 36.7; O2SAT 98
[2024-09-28 06:00] VITALS: BP 98/62; PULSE 88; RESP 16; TEMP 36.6; O2SAT 97
[2024-09-28] MEDS: multivitamin therapeutic Tablet 1 TAB PO (08:12)
--- NOTE | 2024-09-28 11:25 | W.PM.NPUDCS ---
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 Calculation 138.8 mL/min (90- 130) H 09/25/24 02:20 Glucose 110 mg/dL (65-115 ) 09/25/24 02:20 Calculated Osmolal ity 283 mOsm/kg (285- 295) L 09/25/24 02:20 Calcium 9.9 mg/dL (8.5-10 .5) 09/25/24 02:20 Total Bilirubin 0.5 mg/dL (0.15-1 .2) 09/25/24 02:20 AST 20 U/L (0-32) 09/25/24 02:20 ALT 18 U/L (0-33) 09/25/24 02:20 Alkaline Phosphata se 67 U/L (35-105) 09/25/24 02:20 Total Protein 7.6 g/dL (6.6-8.7 ) 09/25/24 02:20 Albumin 4.1 g/dL (3.5-5.2 ) 09/25/24 02:20 Globulin 3.5 g/dL (1.3-4.6 ) 09/25/24 02:20 HCG, Qual Negative (Negati ve) 09/25/24 02:20 Salicylates 0.4 mg/dL (3-10) L 09/25/24 02:20 Urine Opiates Scre en Positive ng/mL (N egative) H 09/25/24 01:46 Acetaminophen < 5.0 ug/mL (10-3 0) L 09/25/24 02:20 Ur Barbiturates Sc reen Negative ng/mL (N egative) 09/25/24 01:46 Ur Phencyclidine S crn Negative ng/mL (N egative) 09/25/24 01:46 Ur Amphetamines Sc reen Positive ng/mL (N egative) H 09/25/24 01:46 U Benzodiazepines Scrn Positive ng/mL (N egative) H 09/25/24 01:46 Urine Cocaine Scre en Negative ng/mL (N egative) 09/25/24 01:46 U Marijuana (THC) Screen Positive ng/mL (N egative) H 09/25/24 01:46 Ethyl Alcohol < 10 mg/dL (0-10) 09/25/24 02:20 C. trachomatis (PC R) Not detected (Ne gative) 09/26/24 17:40 Hepatitis A IgM Ab Non-reactive (No nreactive) 09/25/24 02:20 Hep Bs Antigen Non-reactive (No nreactive) 09/25/24 02:20 Hep Bs Antibody < 3.5 (11.5-1000 ) L 09/25/24 02:20 Hep B Core Total A b Non-reactive (No nreactive) 09/25/24 02:20 Hepatitis C Antibo dy Non-reactive (No nreactive) 09/25/24 02:20 N. gonorrhoeae (PC R) Not detected (Ne gative) 09/26/24 17:40 T. vaginalis (PCR) Not detected (Ne gative) 09/26/24 17:40 Vitals: Last Vital Signs Temp 97.9 F 09/28/24 06:00 Pulse 88 09/28/24 06:00 Resp 16 09/28/24 06:00 BP 98/62 09/28/24 06:00 Pulse Ox 97 09/28/24 06:00 O2 Del Method Room Air 09/28/24 06:00 Discharge Plan Discharge Patient Disposition: Home Condition: Stable Prescriptions: New amoxicillin-pot clavulanate 875-125 mg Tablet 1 tab PO BID 7 Days Qty: 13 0RF fluoxetine 20 mg Capsule 40 mg PO DAILY Qty: 60 1RF paliperidone 3 mg Tablet Extended Release 24hr 3 mg PO 2100 30 Days Qty: 30 1RF Continued trazodone 50 mg Tablet 50 mg PO BEDTIME PRN (Reason: Sleep) 30 Days Qty: 30 1RF gabapentin 300 mg Capsule 300 mg PO TID 30 Days Qty: 90 1RF fluoxetine [Prozac] 20 mg capsule 40 mg PO DAILY Discharge Order = DC NOW: Discharge Order (Routine); Ordered 09/28/24 Ordered By: Zak Woodruff Referrals: Baldemar Rivero MD [Primary Care Provider, Family Practice] Discharge Diet: Usual diet Discharge Activity: Resume usual activity Patient Instructions: Opioid Safety, Patient Portal & Maribel Instructions Discharge Attestations NPU Time Spent in Discharge Care*: less than 30 min Specific Discharge Activities: Specific discharge activities: educating patient, discussing with casework specialist/social workers/dc planners and documenting/other paperwork Status at Discharge: Cognitive status at discharge: cognitively intact, Behavioral status at discharge: cooperative, Coding Level of Care Code Acute Code for [facility] Fw Diagnoses Pain and swelling of right forearm M79.631; M79.89 Acute psychosis F23 Methamphetamine abuse F15.10
[2024-09-28 12:23] VITALS: BP 98/62; PULSE 97; RESP 16; TEMP 36.6; O2SAT 98
[2024-09-28 12:53] VITALS: BP 102/64; PULSE 70; RESP 16; TEMP 37.1; O2SAT 100
== END 2024-09-28 15:13 | disposition home or self-care (01) | DRG 897 ==
LOC: ER 01:47 → NP 03:37
PROVIDERS: Admitting Provider Psychiatry & Neurology Psychiatry; Emergency Provider Family Medicine; PCP Family Medicine; Visit Provider Psychiatry & Neurology Psychiatry
DX: F15.159 Other stimulant abuse with stimulant-induced psychotic disorder, unspecified (principal); R63.6 Underweight; Z68.24 Body mass index [BMI] 24.0-24.9, adult; F41.9 Anxiety disorder, unspecified; F17.200 Nicotine dependence, unspecified, uncomplicated; Z91.51 Personal history of suicidal behavior; Z81.8 Family history of other mental and behavioral disorders; Z62.812 Personal history of neglect in childhood; Z62.811 Personal history of psychological abuse in childhood; Z62.810 Personal history of physical and sexual abuse in childhood; S50.01XA Contusion of right elbow, initial encounter; X58.XXXA Exposure to other specified factors, initial encounter; Z23 Encounter for immunization
CPT/HCPCS: 36415; 73200; 80053; 80306; 80307; 84703; 85025; 86705; 86706; 86709; 86803; 87340; 87491; 87591; 87661; 90471; 90714; 97150; 97165; 99285; J9999

== ENCOUNTER 2025-01-29 21:19 | Inpatient (IN) | payer MEDICAID, SELFPAY ==
[2025-01-29 21:22] VITALS: BP 119/44; PULSE 110; RESP 18; TEMP 36.9; O2SAT 96; BMI 22.1
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
--- OUTSIDE RECORDS SUMMARY | 2025-01-29 21:52 | XMS_ITS | Continuity of Care Document ---
Author Organization [facility] Treva, Carla, [facility] ([facility]) Address [address] [place] [address] Assessment Encounter Date Assessment Date Assessment LastModified by Organization Details LastModified Time 12/27/2024 12/27/2024 Patient here today for a check on her right leg. She has an abrasion that will not heal and she is concerned it is getting infected. Additionally, she is asking for an increase in her fluoxetine because it is not as helpful any longer. She thinks she needs a PA done on her alprazolam and would like a vitamin sent that Medicaid will cover. Not available 12/27/2024 14:20:00 Plan of Treatment Reminders Order Date Submit Date Provider Last Modified By Organization Details Last Modified Time Details Appointments RECHECK 15 2024 02:45P Lobito Rivero MD Not available Not available Not available Lab None recorded. Referral None recorded. Procedures None recorded. Surgeries None recorded. Imaging None recorded. Medication Orders mupirocin 2 % topical ointment 2024 025 [place] [employer] #[id number], [address], [place], [place], [phone], 12/27/2024 14:17:50 cephalexi n 500 mg capsule 2024 025 [place] [id number], [address], [place], [place], [phone], 01/10/2025 05:02:05 Vitamins Plus Low Iron 27 mg iron-1 mg tablet 2024 025 [place] [facility][id number], [address], [place], [place], [phone], 12/27/2024 14:17:50 fluoxetin e 60 mg tablet 2024 025 [id number], [address], [place], [place], [phone], 12/27/2024 14:17:48 Patient TargetsNo targets recorded. Patient Instructions Encounter Date Encounter Id Patient Instructions Last Modified By Organization Details Last Modified Time 12/27/2024 [id number] Call or return for questions or concerns. Not available 12/27/2024 14:17:44 Reason for Referral None Reported. Problems Name Problem SNOMED Code Status Onset Date Resolution Date Notes Provider Name and Address Organization Details Recorded Time Heart murmur 80823858 Active 023 YENY JEAN-PIERRE [facility] 5 16:33:37 Mixed anxiety and depressive disorder 331776557 Active 023 YENY JEAN-PIERRE [facility] 5 16:33:37 Spider bite wound 666209304 Active 023 YENY JEAN-PIERRE [facility] 5 16:33:41 Insomnia 470581846 Active 023 YENY JEAN-PIERRE [facility] 5 16:33:36 Alcohol use disorder Active 025 YENY MOREJON [facility] 5 16:33:36 Problem Notes None recorded. Procedures Surgical History Date Name Laterality Status Provider Name and Address Organization Details Recorded Time laparoscopic sleeve gastrectomy completed ARLIN MURRELL [facility] 12/27/2024 13:56:23 tonsillectomy completed ARLIN MURRELL [facility] 12/27/2024 13:56:31 ligation of bilateral fallopian tubes completed ARLIN MURRELL [facility], [facility] 12/27/2024 13:56:44 Imaging Results None recorded. Procedure Notes None recorded. Medical Equipment None Reported. Allergies No known drug allergies Medications Name Sig Start Date Stop Date Status Note LastModified by Organization Details LastModified Time fluoxetin e 40 mg capsule TAKE 1 CAPSULE BY MOUTH EVERY DAY 12/27 completed Dose increase Not Available Not Available Not Available trazodone 50 mg tablet TAKE 1 TABLET BY MOUTH EVERY DAY AT BEDTIME active Not Available Not Available No t Available sodium bicarbona te 325 mg tablet two times daily 11/10 completed vo KM/dh; [id number]; Recorded 04/01/19 1:56PM by Amara Navarro LPN (Authori zerashawn through Mariia Barajas PA-C), Refill Request; Refill Quantity : 0; Not Available Not Available Not Available sulfameth oxazole 800 mg-trimet hoprim 160 mg tablet TAKE 1 TABLET BY MOUTH EVERY 12 HOURS FOR 7 DAYS 07/28 completed Not Available Not Available Not Available alprazola m 0.5 mg tablet TAKE 1/2 TABLET BY MOUTH THREE TIMES DAILY NEEDED active Not Available Not Available No t Available potassium chloride ER 20 mEq tablet,ex tended release(p art/cryst ) TAKE 1 TABLET BY MOUTH DAILY 11/10 completed Not Available Not Available Not Available magnesium oxide 400 mg (241.3 mg magnesium ) tablet TAKE 1 TABLET BY MOUTH DAILY 11/10 completed Not Available Not Available Not Available cephalexi n 500 mg capsule Take 1 capsule 3 times a day by oral route for 7 days. 01/10 completed Not Available Not Available Not Available fluoxetin e 20 mg tablet TAKE 1 TABLET BY MOUTH DAILY 08/04 completed Not Available Not Available Not Available gabapenti n 300 mg capsule TAKE 1 CAPSULE BY MOUTH THREE TIMES DAILY active Not Available Not Available No t Available mupirocin 2 % topical ointment APPLY SMALL AMOUNT TOPICALL Y TO THE AFFECTED AREA THREE TIMES DAILY active Not Available Not Available No t Available morphine 15 mg immediate release tablet TAKE 1/2 TABLET BY MOUTH EVERY 6 HOURS FOR 3 DAYS NEEDED FOR PAIN 11/10 completed Not Available Not Available Not Available fluoxetin e 20 mg capsule take 2 capsules BY MOUTH DAILY 12/27 completed Not Available Not Available Not Available amoxicill in 875 mg-potass ium clavulana te 125 mg tablet TAKE ONE TABLET BY MOUTH TWICE DAILY FOR 7 DAYS 12/27 completed Not Available Not Available Not Available fluoxetin e daily 11/10 completed Recorded 04/28/19 23 4:17PM by Baldemar Rivero MD, Office Visit; Refill Quantity : 90; Tablet; Not Available Not Available Not Available alprazola m TID PRN 11/10 completed anxiety and agitatio n; Recorded 04/28/19 23 4:18PM by Baldemar Rivero MD, Office Visit; Refill Quantity : 30; Tablet; Not Available Not Available Not Available paliperid one ER 3 mg tablet,ex tended release 24 hr TAKE ONE TABLET BY MOUTH AT 9pm for 30 days active Not Available Not Available No t Available fluoxetin e 60 mg tablet TAKE 1 TABLET BY MOUTH EVERY DAY active Not Available Not Available No t Available M- Plus 27 mg iron-1 mg tablet TAKE 1 TABLET BY MOUTH DAILY FOR 90 DAYS active Not Available Not Available No t Available Vitals Date Recorded Body weight Body mass index (BMI) Body height Oxygen saturation Heart rate Respiratory rate Systolic And Diastolic Provider Name and Address Organization Details Last Updated DateTime 5 13311.4 5 g 22 kg/m2 160.02 cm 99 % 86 /min 20 /min 100/68 mm[Hg] ARLIN MURRELL [facility] 13:45:06 Social History Question Answer Notes LastModified by Organizat ion Details LastModified Time Tobacco Smoking Status Current Every Day Smoker ARLIN cordova [facility] 12/27/2024 13:49:09 What Was The Date Of Your Most Recent Tobacco Screening? 12/27/2024 [email or web address] Information not available 12/27/2024 Sex: Unknown Functional Status Question Answer Note LastModified by Organization D etails LastModified Time What is your level of alcohol consumption? Moderate [email or web address] Information not available 12/27/2024 Mental Status None recorded. Family History Relationship Description Onset Age of this Age Resolved Age Notes LastModified by Organization Details LastModified Time Father Type 2 diabetes mellitus [email or web address] Not available 12/27 13:48:10 Son Type 1 diabetes mellitus [email or web address] Not available 12/27 13:48:29 Medical History No medical history recorded. Gynecological HistoryNo gynecological history recorded. Obstetrics History GPAL:G 0 P 0 0 0 0 Immunizations Vaccine Type Date Status Note Provider Nam e and Address Organization Details Recorded Time Tdap 4 completed Not Available [facility] 09/19/2022 02:43:52 Novel [id number] , all formulations 3 completed Not Available [facility] 09/19/2022 02:43:53 MMR 3 completed Kelly Pliler null, [facility] 11/11/2023 10:49:48 MMR 8 completed Kelly Pliler null, [facility] 11/11/2023 10:49:48 Tdap 2 completed Kelly Pliler null, [facility] 11/11/2023 10:49:48 Hep B, unspecified formulation 0 completed Kelly Pliler null, [facility] 11/11/2023 10:49:48 Hep B, unspecified formulation 0 completed Kelly Pliler null, [facility] 11/11/2023 10:49:48 Hep B, unspecified formulation 0 completed Kelly Pliler null, [facility] 11/11/2023 10:49:48 polio, unspecified formulation 8 completed Kelly Pliler null, [facility] 11/11/2023 10:49:48 polio, unspecified formulation 8 completed Kelly Pliler null, [facility] 11/11/2023 10:49:48 polio, unspecified formulation 3 completed Kelly Pliler null, [facility] 11/11/2023 10:49:48 polio, unspecified formulation 7 completed Kelly Pliler null, [facility] 11/11/2023 10:49:48 Td (adult), 2 Lf tetanus toxoid, preservative free, adsorbed 3 completed Kelly Pliler null, [facility] 11/11/2023 10:49:48 Hib (PRP-T) 9 completed Kelly Pliler null, [facility] 11/11/2023 10:49:48 DTaP 8 completed Kelly Pliler null, [facility] 11/11/2023 10:49:48 DTaP 8 completed Kelly Pliler null, [facility] 11/11/2023 10:49:48 DTaP 3 completed Kelly Pliler null, [facility] 11/11/2023 10:49:48 DTaP 7 completed Kelly Pliler null, [facility] 11/11/2023 10:49:48 Td (adult) 5 completed Not Available [facility] 12/27/2024 13:36:53 Past Encounters Encounter ID Performer Location Encounter Start Date Encounter Closed Date Diagnosis/Indication Diagnosis SNOMED-CT Code Diagnosis ICD10 Code Diagnosis IMO Codes Diagnosis Note [id number] MELLY SMART [facility] ([facility]) [address] [place] [address] 12/27/2024 13:36:44 12/27/2024 14:24:28 Abrasion of skin of right lower leg 6196466892 7081713 S80.811A 8571154 History of bariatric surgical procedure 463345484 Z98.84 242132 Mixed anxi ety and depressive disorder 141085106 F41.8 Health Concerns Section Related Observation LastModified by Organization Detai ls LastModified Time None Recorded Concern Status LastModified by Organization Details LastModified Time None Recorded Payers Encounter Date Sequence Insurance Name Policy Number Policy Robbins Covered Member ID Robbins Member ID Guarantor Name 12/27/2024 1 [facility] (MEDICAID REPLACEMENT - HMO) NATHALY Carbajal [id number] Naida Carbajal Notes Date Note Type Note Provider Name and Address Organization Details Recorded Time 12/27/2024 text/html Skin LesionRepor zia by PatientHPIFor location, patient reportsleg. For quality, patient reportspainful. For severity, patient reportsmild. For duration, patient reports2 weeks. GASTON ROUSSEAU, [facility] [address] [place] [address], [phone], [facility] 12/27/2024 14:22:23 OBGyn Episode No OBEpisode recorded.
--- OUTSIDE RECORDS SUMMARY | 2025-01-29 21:52 | XMS_ITS | Data Portability ---
Author Organization [facility] Address [address] [facility] [address] [place] [address] Assessment Encounter Date Assessment Date Assessment LastModified [...] mupirocin 2 % topical ointment 2024 025 [id number], [address], [place], [place], [id number], 12/27/2024 14:17:50 cephalexi n 500 mg capsule 2024 025 [facility][id number], [address], [place], [place], [id number], 01/10/2025 05:02:05 Vitamins Plus Low Iron 27 mg iron-1 mg tablet 2024 025 [facility] #[id number], [address], [place], [place], [id number], 12/27/2024 14:17:50 fluoxetin e 60 mg tablet 2024 025 [facility] #70601, [address], [place], [place], [id number], 12/27/2024 14:17:48 trazodone 50 mg tablet 2024 025 [facility] #[id number], [address], [place], [place], [id number], 08/04/2024 16:28:58 alprazola m 0.5 mg tablet 2024 025 [facility] #15944, [address], [place], [place], [id number], 08/04/2024 16:28:58 fluoxetin e 40 mg capsule 2024 025 [facility] #18461, [address], [place], [place], [id number], 12/27/2024 14:12:10 trazodone 50 mg tablet 2022 023 [facility] #10265, [address], [place], [place], [id number], 11/10/2022 17:11:47 alprazola m 0.5 mg tablet 2022 023 [facility] #23715, [address], [place], [place], [id number], 11/10/2022 17:11:52 fluoxetin e 40 mg capsule [address] [facility] #69572, [address], [place], [place], [id number], 12/27/2024 14:11:56 Bactrim DS 800 mg-160 mg tablet 2022 023 [facility]32725, [address], [place], [place], [id number], 07/29/2023 11:18:17 mupirocin 2 % topical ointment 2022 023 [facility] #[id number], [address], [place], [place], [id number], 08/03/2023 17:27:17 Patient TargetsNo targets recorded. Patient Instructions Encounter Date Encounter Id Patient Instructions Last Modified By Organization Details Last Modified Time 12/27/2024 [id number] Call or return for questions or concerns. Not available 12/27/2024 14:17:44 Reason for Referral None Reported. Problems Name Problem SNOMED Code Status Onset Date Resolution Date Notes Provider Name and Address Organization Details Recorded Time Heart murmur 90035167 Active 023 YENY MOREJON [facility] 5 16:33:37 Mixed anxiety and depressive disorder 421702091 Active 023 YENY MOREJON [facility] 5 16:33:37 Spider bite wound 053434007 Active 023 YENY MOREJON [facility] 5 16:33:41 Insomnia 904957651 Active 023 YENY MOREJON [facility] 5 16:33:36 Alcohol use disorder Active 025 YENY MOREJON [facility] 5 16:33:36 Problem Notes None recorded. Procedures Surgical History Date Name Laterality Status Provider Name and Address Organization Details Recorded Time laparoscopic sleeve gastrectomy completed ARLIN MURRELL [facility] 12/27/2024 13:56:23 tonsillectomy completed [facility], [facility] 12/27/2024 13:56:31 ligation of bilateral fallopian tubes completed [facility], [place] 12/27/2024 13:56:44 Imaging Results None recorded. Procedure [...] tablet two times daily 11/10 completed vo KM/; [id number]; Recorded 04/01/19 22 1:56PM by Amara Navarro LPN (Authori bernardo through Mariia Barajas PA-C), Refill Request; Refill [...] completed anxiety and agitatio n; Recorded 04/28/19 4:18PM by Baldemar Rivero MD, Office Visit; [...] Not Available Not Available No t Available M-Juaquin Plus 27 mg iron-1 mg tablet TAKE 1 TABLET BY MOUTH DAILY FOR 90 DAYS active Not Available Not Available No t Available Vitals Date Recorded Body weight Oxygen saturation Heart rate Systolic And Diastolic Provider Name and Address Organization Details Last Updated DateTime 08/04/2024 44127.38 g 99 % 79 /min 124/70 mm[Hg] YENY MOREJON [facility] 08/04/2024 15:54:58 Date Recorded Body height Body mass index (BMI) Body weight Oxygen saturation Heart rate Respiratory rate Body temperature Provider Name and Address Organization Details Last Updated DateTime 3 160.02 cm 18.5 kg/m2 34602.4 1 g 100 % 87 /min 20 /min 97.3 [degF] MEME PUTNAM [facility] 3 12:26:47 Date Recorded Body height Body mass index (BMI) Body weight Heart rate Oxygen saturation Systolic And Diastolic Provider Name and Address Organization Details Last Updated DateTime 3 160.02 cm 24.8 kg/m2 08164.9 3 g 93 /min 97 % 110/89.99 mm[Hg] DELMY LUGO [facility] 3 16:45:35 Date Recorded Body weight Body mass index (BMI) Body height Oxygen saturation Heart rate Respiratory rate Systolic And Diastolic Provider Name and Address Organization Details Last Updated DateTime 5 68972.4 5 g 22 kg/m2 160.02 cm 99 % 86 /min 20 /min 100/68 mm[Hg] ARLIN HANDY [facility] 5 13:45:06 Social History Question Answer Notes LastModified by Organizat ion Details LastModified Time Tobacco Smoking Status Current Every Day Smoker ARLIN HANDY [facility] 12/27/2024 13:49:09 What Was The Date Of Your Most Recent Tobacco Screening? 12/27/2024 Information not available 12/27/2024 Sex: Unknown Functional Status Question Answer Note LastModified by Organization D etails LastModified Time What is your level of alcohol consumption? Moderate [email or web address] Information not available 12/27/2024 Mental Status None recorded. Family History Relationship Description Onset Age of this Age Resolved Age Notes LastModified by Organization Details LastModified Time Father Type 2 diabetes mellitus [email or web address] Not available 12/27 13:48:10 Son Type 1 diabetes mellitus [email or web address] Not available 12/27 13:48:29 Medical History No medical history recorded. Gynecological HistoryNo gynecological history recorded. Obstetrics History GPAL:G 0 P 0 0 0 0 Immunizations Vaccine Type Date Status Note Provider Nam e and Address Organization Details Recorded Time Tdap 4 completed Not Available [facility] 09/19/2022 02:43:52 Novel Fhldaxutv-[id number] , all formulations 3 completed Not Available [facility] 09/19/2022 02:43:53 MMR 3 completed Kelly Pliler null, [facility] 11/11/2023 10:49:48 MMR 8 completed Kelly Pliler null, [facility] 11/11/2023 10:49:48 Tdap 2 completed Kellyjae Machado [facility], [facility] 11/11/2023 10:49:48 Hep B, unspecified formulation 0 completed Kelly Pliler null, [facility] 11/11/2023 10:49:48 Hep B, unspecified formulation 0 completed [facility]/11/2023 10:49:48 Hep B, unspecified formulation 0 completed Kelly Jacksoniler null, [facility] 11/11/2023 10:49:48 polio, unspecified formulation 8 completed [facility] 11/11/2023 10:49:48 polio, unspecified formulation 8 completed [facility] 11/11/2023 10:49:48 polio, unspecified formulation 3 completed Kelly Pliler null, [facility] 11/11/2023 10:49:48 polio, unspecified formulation 7 completed [facility], [facility] 11/11/2023 10:49:48 Td (adult), 2 Lf tetanus toxoid, preservative free, adsorbed 3 [facility] 11/11/2023 10:49:48 Hib (PRP-T) 9 completed Kelly Pliler null, [facility] 11/11/2023 10:49:48 DTaP 8 completed Kelly Pliler null, [facility] 11/11/2023 10:49:48 DTaP 8 completed Kelly Pliler null, [facility] 11/11/2023 10:49:48 DTaP 3 completed Kelly Pliler null, [facility] 11/11/2023 10:49:48 DTaP 7 completed Kelly Pliler null, [facility] 11/11/2023 10:49:48 Td (adult) 5 completed Not Available [facility] 12/27/2024 13:36:53 Past Encounters Encounter ID Performer Location Encounter Start Date Encounter Closed Date Diagnosis/Indication Diagnosis SNOMED-CT Code Diagnosis ICD10 Code Diagnosis IMO Codes Diagnosis Note [id number] MELLY CHRISTINE [facility] ([facility]) [address] [place] [phone] 11/07/2022 12:10:47 11/07/2022 13:17:44 Cellulitis of skin 299580220 L03.90 RTC for follow up with Dr Rivero next week. [id number] Baldemar Rivero MD [facility] ([facility]) [address] [place] [phone] 11/10/2022 16:21:56 11/10/2022 17:35:54 Mixed anxiety and depressive disorder 997281415 F41.8 Spider bite wound 969732 008 T63.391D improved subjective ly. Continue antibiotic s. Insomnia 852088038 G47.0 1 Anxiety disorder 7413450 06 F41.9 [id number] Baldemar Rivero MD [facility] ([facility]) [address] [place] [phone] 5 08/04/2024 15:37:55 08/07/2024 11:26:35 Depressive disorder 64823712 F32.9 Insomnia 353404823 G47.0 1 Anxiety disorder 6681171 F41.9 Mixed anxi ety and depressive disorder 748450189 F41.8 Alcohol use disorder 891 5898177 F10.90 83426709 she is working on staying clean. [id number] MELLY SMART [facility] ([facility]) [address] [place] [address] 12/27/2024 13:36:44 12/27/2024 14:24:28 Abrasion of skin of right lower leg 6724290309 1354892 S80.811A 2544331 History of bariatric surgical procedure 822714278 Z98.84 767746 Mixed anxi ety and depressive disorder 528921348 F41.8 Health Concerns Section Related Observation LastModified by Organization Detai ls LastModified Time None Recorded Concern Status LastModified by Organization Details LastModified Time None Recorded Advance Directives Directive None Recorded Payers Insurance Date Sequence Insurance Name Policy Number Policy Robbins Covered Member ID Robbins Member ID Guarantor Name 12/26/2024 1 [facility] (MEDICAID REPLACEMENT - HMO) NATHALY Carbajal [id number] Naida Carbajal 08/02/2024 [facility] (MEDICAID HMO) Naida Carbajal [id number] Naida Carbajal 08/02/2024 1 [facility] (MEDICAID HMO) Naida Carbajal [id number] Naida Carbajal Notes Date Note Type Note Provider Name and Address Organization Details Recorded Time 11/07/2022 text/html Skin LesionRepor zia by PatientHPIFor location, patient reportsfinger (4th finger right hand). For quality, patient reportspainful,bleeds,d rainage,growing __,becoming more symptomatic, andchanging in color. For severity, patient reportsmoderate. For duration, patient reports1 weeks. For context, patient reportstrauma (spider bite per patient). For associated symptoms, patient reportsno fever.Patient admits to history of IV drug use. MOther is present at time of office visit.ROS as noted in the HPI MELLY CHRISTINE [address] [place] [address], [phone], [facility] 11/07/2022 13:07:19 11/10/2022 text/html Generalized Anxi ety DisorderReported by PatientHPIFor associated symptoms, patient reportsdifficulty concentrating,difficult y controlling worry, andexcess anxiety. For context, patient reportsdepression. Baldemar Rivero MD [address] [place], [address], [facility] 11/10/2022 17:12:54 08/04/2024 text/html Anxiety/Depressi onRepor zia by PatientHPIFor associated symptoms, patient reportshigh irritability,anxiety, anddepression. For severity, patient reportsdenies suicidal ideations,able to maintain relationships,does not interfere with activities of daily living, andsymptoms improved. For onset/timing, patient reportsgradual. For modifying factors, patient reportsmedications as directed. Sleep ProblemsReported by PatientSleep HPIFor insomnia, patient reportsdifficulty falling asleep. For onset/timing, patient reportsgradual onset. For prescribed sleep medications, patient reportsnot taking medication to help sleep. Baldemar Rivero MD [address] [place], [address], [facility] 08/04/2024 16:29:57 12/27/2024 text/html Skin LesionRepor zia by PatientHPIFor location, patient reportsleg. For quality, patient reportspainful. For severity, patient reportsmild. For duration, patient reports2 weeks. MELLY SMART [address] [place], [address], [facility] 12/27/2024 14:22:23 OBGyn Episode No OBEpisode recorded.
[2025-01-29 22:12] LABS: Hematocrit 36.9 % (36-47); Hemoglobin 11.90 g/dL (11.27-16.99); Mean Corpuscular HGB Conc 32.2 g/dL (30-55); Mean Corpuscular Hemoglobin 26.1 pg (27-33); Mean Corpuscular Volume 80.9 fl (85-98); Nucleated Red Blood Cells % 0 %; Platelet Count 356 10^3/cmm (157-399); Red Blood Count 4.56 10^6/uL (3.85-5.65); White Blood Count 5.33 10^3/uL (3.29-11.43)
--- NOTE | 2025-01-29 22:39 | PC.NURSE ---
[facility] Pt served copy of right for [facility] by this RN and security. Pt alert and oriented x 3. Pt stated Can I get a Dr for a pedicure while I'm here. That's self care too ya know? Pt educated on [facility] process and extended length of stay in ER due to no open beds in unit. That's fine, I'd prefer to stay here instead of going down there, thank you.
[2025-01-29 22:40] LABS: HCG, Serum Qual Negative (Negative)
[2025-01-29 22:41] LABS: Alanine Aminotransferase 20 U/L (0-33); Albumin Level 4.3 g/dL (3.5-5.2); Alkaline Phosphatase 63 U/L (35-105); Anion Gap 17.8 (5-19); Aspartate Amino Transferase 29 U/L (0-32); Blood Urea Nitrogen 18 mg/dL (6-20); Calcium 9.3 mg/dL (8.5-10.5); Carbon Dioxide 24 mmol/L (22-29); Chloride 104 mmol/L (98-107); Globulin 3.1 g/dL (1.3-4.6); Glucose 132 mg/dL (65-115); Osmolality Calculated 298 mOsm/kg (285-295); Potassium 3.8 mmol/L (3.5-5.1); Sodium 142 mmol/L (136-145); Total Protein 7.4 g/dL (6.6-8.7)
[2025-01-29 22:42] LABS: Acetaminophen < 5.0 ug/mL (10-30); Alcohol Level < 10 mg/dL (0-10); Salicylate < 0.3 mg/dL (3-10)
[2025-01-30 06:51] VITALS: BP 104/55; PULSE 83; RESP 16; TEMP 36.5; O2SAT 98
[2025-01-30 09:14] VITALS: RESP 16
[2025-01-30 10:31] VITALS: BP 103/64; PULSE 89; RESP 18; TEMP 36.6; O2SAT 99
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
--- NOTE | 2025-01-30 12:18 | PC.NURSE ---
Dr. Montejo informed of the wound to right outer lower leg on pt.
[2025-01-30 14:00] VITALS: BP 103/64; PULSE 89; RESP 18; TEMP 36.6; O2SAT 99
--- NOTE | 2025-01-30 14:34 | PC.NURSE ---
Signee called [facility] pharmacy and pt. last filled Xanax on 10/28/2024 and there was no refills given. Signee informed Dr. Montejo and no new orders was given.
--- NOTE | 2025-01-30 14:35 | PC.NURSE ---
Medications reconciled.
[2025-01-30 15:09] LABS: PCP Screen Urine Negative (Negative)
[2025-01-30] MEDS: PRENATAL VIT NO.130/IRON/FOLIC 1 EACH TABLET PO (20:36)
[2025-01-30 21:48] VITALS: BP 103/51; PULSE 97; RESP 17; TEMP 36.9; O2SAT 98
--- NOTE | 2025-01-30 22:14 | PC.NURSE ---
Patient has a 1.5cm in diameter that is about 0.5cm deep. The area surrounding the wound is red with purulent exudates in about 3cm diameter. The wound area was full of purulent drainage. Dr Montejo was notified and approved that the area was cleaned with Hydrogenperoxide using cotton tip swabs, then cleaned with butadiene swabs, removing all purulent exudates. The area was then covered with a large ban-aid.
--- NOTE | 2025-01-31 05:46 | P.NPUHP_ITS ---
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 tablet,extended 3 mg PO 2100 30 days #30 tabs 09/28/24 01/30/25 Unknown Rx release 24 hr fluoxetine 60 mg tablet 60 mg PO 1XD depression 11/1601/30/25 Unknown History vitamins with calcium 1 tab PO DAILY 01/30/25 01/30/25 Unknown History no.72-iron 27 mg-folic acid 1 mg tablet (M- Plus) Allergies Allergy/AdvReac Type Severity Reaction Status Date / Time No Known Allergies Allergy Verified 07/21/22 18:36 PFSH NPU 2 PFSH: Medical History (Updated 02/01/25 @ 08:04 by Jason Montejo MD) Substance abuse Substance induced mood disorder Alcohol use Depression Methamphetamine abuse No pertinent past medical history Denies diabetes, asthma, hypertension, seizures, DVT/PE PMD-Dr. Farr Anxiety Diagnosed in about 2015 and she used to take alprazolam as needed for this. She states that she currently has a therapist whom she talks to and this helps. She follows with her primary care provider Dr. Farr GERD (gastroesophageal reflux disease) Surgical History S/P laparoscopic sleeve gastrectomy S/P wisdom tooth extraction History of esophagogastroduodenoscopy (EGD) 06/2019 History of tonsillectomy 06/2019 at the age of [address] Brito as this was thought to contribute to sleep apnea History of tubal ligation post tubal ligation by Dr. Quiroz at [facility] [place]. 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 Family History Father Diabetes Family/Other Diabetes maternal aunt Grandmother Diabetes maternal Stroke paternal Grandfather Stroke paternal and maternal Denies family history of Cervical cancer Colon cancer Ovarian cancer DVT (deep venous thrombosis) Heart disease Hyperlipidemia Breast cancer Anesthesia complication Bleeding disorder Pulmonary embolism Hypertension Uterine cancer Thyroid disease Social History (Updated 02/01/25 @ 03:39 by Zana Hodge MD) Smoking and tobacco/nicotine status: current every day tobacco/nicotine user Alcohol intake: never Substance/Drug Use: current Substance/Drug use frequency: few times a week Additional social history: Patient wants full code as discussed with Zana Hodge MD on 02/01/2025 - Tobacco Use: Denies current or past use Drug Use: Used marijuana a couple of times as a teenager; admits to meth use off and on Alcohol Use: Denies 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 There appeared to be pick rea on her lower right leg that could be infected. There was no evidence of abnormal involuntary motor movements. There was evidence of psychomotor agitation. She was cooperative on examination in mild to moderate distress. Her speech was normal in rate and volume. Mood described as not great, I got into a bad situation again, her affect was irritable. Thought process was more linear. Thought content: Patient denied suicidal or homicidal ideation. There was no evidence of bizarre delusions but did have ideas of reference. She reported somatic complaints. Attention and concentration were limited and memory appeared unreliable but none were formally tested.? She is alert and oriented to person, place and time. Insight, judgment and impulse control were impaired. Vitals/I&O/Wt Last Vital Signs Temp 98.5 F 01/30/25 21:48 Pulse 97 01/30/25 21:48 Resp 17 01/30/25 21:48 BP 103/51 01/30/25 21:48 Pulse Ox 98 01/30/25 21:48 O2 Del Method Room Air 01/30/25 21:48 Weight last 48 hrs Weight 56.699 kg Data NPU 02/01/25 04:41 02/01/25 04:41 A&P Assessment and plan 1. Acute psychosis: 2. Methamphetamine use disorder, severe: 3. Anxiety: 4. Substance induced mood disorder: 5. Parent-child relational problem: 6. Cannabis use disorder, severe, in sustained remission, dependence: 7. Infection: Plan: This is a 39-year-old female with methamphetamine induced psychosis with genetic loading for bipolar I disorder currently on a hold. Plan: 1. Continue home medication. 2. Continue every 15 minute checks for safety. 3. Encourage individual, group and milieu therapies. 4. Encourage sober living treatment after discharge at the highest level of care to which she is willing to commit. 5. Observe against the backdrop of the 96-hour hold. 6. Obtain collateral information. PDMP PDMP Reviewed: Not Reviewed Involuntary Hold Information 2 Hold Status: Legal Status: 96 Hour Hold Date/Time Hold Expires: 02/02/25 @ 21:19 96 Hour Hold: 96 Hour Involuntary Admission: Yes Attestations NPU 2 Medical Necessity Statement*: Inpatient hospitalization is medically necessary and the clinically appropriate intervention at this time. We will monitor medication to make changes as indicated. The patient's likely length of stay is 3-5 days. Coding Level of Care Code Acute Code for [facility] Fwd Diagnoses Acute psychosis F23 Methamphetamine use disorder, severe F15.20 Anxiety F41.9 Substance induced mood disorder F19.94 Parent-child relational problem Z62.820 Cannabis use disorder, severe, in sustained remission, dependence F12.21 Infection B99.9
[2025-01-31 06:00] VITALS: BP 96/63; PULSE 66; RESP 16; TEMP 36.6; O2SAT 98
[2025-01-31] MEDS: PRENATAL VIT NO.130/IRON/FOLIC 1 EACH TABLET PO (08:45)
[2025-01-31 13:52] VITALS: BP 102/54; PULSE 68; RESP 16; TEMP 36.9; O2SAT 94
[2025-01-31 20:24] VITALS: BP 138/63; PULSE 80; RESP 18; TEMP 36.8; O2SAT 100
--- NOTE | 2025-02-01 00:10 | ECG_ITS ---
[facility] Test Date: 2025-02-01 Pat Name: Naida Carbajal Department: Room: 150 Gender: Female Intranet Specialist: : 1985 Requested By: Jason Montejo Order Number: [id number] Lynda MD: Armani Li M.D. Measurements Intervals [place] Rate: 59 P: 2 CA: 123 QRS: 43 QRSD: 89 T: 38 QT: 454 QTc: 450 Interpretive Statements SINUS BRADYCARDIA WITH OCCASIONAL SUPRAVENTRICULAR PREMATURE COMPLEXES No previous ECG available for comparison Electronically Signed On 02-01-2025 17:40:30 DIE REPAIR by Armani Li M.D. [email or web address]
[2025-02-01 00:11] VITALS: PULSE 59
[2025-02-01] MEDS: lidocaine 2% viscous 15 ML, aluminum-mag hydrox-simethicon 30 ML, sucralfate oral liq 1 GM PO (01:48)
--- NOTE | 2025-02-01 03:10 | P.HP_ITS ---
Providers/Chief Complaint 2 Admitting Physician: Jason Montejo MD Primary Care Provider: Baldemar Rivero MD Chief Complaint: Epigastric pain nausea vomiting History of Present Illness Naida Carbajal is a 39 year old female seen in the Neuropsych Unit on request of Dr. Montejo due to patient having nausea vomiting chest pain. Patient tells me that it is more epigastric and abdominal pain. She states it started right after taking some medications here. She denies having coronary artery disease or history of reflux. Patient denies pancreatitis or recent GLP-1 agonists. She has had no nausea vomiting diarrhea constipation prior to this today. She denies hematemesis. Pain is worse with deep breath she has not had a cough Gastric sleeve was 5 years ago in [place] when she weighed 210 pounds she states she lost 85 pounds now weighs 125 pounds Patient denies alcohol abuse states she had half shot of alcohol 2 days ago and last time she had more than 2 drinks in 1 setting was 3 weeks ago. She does not smoke or use weed she uses meth off and on and this time has been using for about a week. Review of Systems 2 Narrative: General No fevers chills she had diaphoresis earlier no dysuria hematuria Neuro no seizures strokes limb weakness Medications/Allergies Home Medications ?Medication ?Instructions ?Recorded ?Confirmed ?Last Taken ?Type gabapentin 300 mg capsule 300 mg PO TID 30 days #90 ca ps 07/24/22 01/30/25 Unknown Rx trazodone 50 mg tablet 50 mg PO BEDTIME PRN Sleep 3 0 days 07/24/22 01/30/25 Unknown Rx #30 tabs paliperidone 3 mg tablet,extended 3 mg PO 2100 30 days #30 tabs 09/28/24 01/30/25 Unknown Rx release 24 hr fluoxetine 60 mg tablet 60 mg PO 1XD depression 11/1601/30/25 Unknown History vitamins with calcium 1 tab PO DAILY 01/30/25 01/30/25 Unknown History no.72-iron 27 mg-folic acid 1 mg tablet (M-Juaquin Plus) Allergies Allergy/AdvReac Type Severity Reaction Status Date / Time No Known Allergies Allergy Verified 07/21/22 18:36 PFSH Acute 2 PFSH: Medical History (Updated 02/01/25 @ 03:40 by Zana Hodge MD) Substance abuse Substance induced mood disorder Alcohol use Depression Methamphetamine abuse No pertinent past medical history Denies diabetes, asthma, hypertension, seizures, DVT/PE PMD-Dr. Farr Anxiety Diagnosed in about 2015 and she used to take alprazolam as needed for this. She states that she currently has a therapist whom she talks to and this helps. She follows with her primary care provider Dr. Farr GERD (gastroesophageal reflux disease) Surgical History S/P laparoscopic sleeve gastrectomy S/P wisdom tooth extraction History of esophagogastroduodenoscopy (EGD) 06/2019 History of tonsillectomy 06/2019 at the age of [address] Brito as this was thought to contribute to sleep apnea History of tubal ligation post tubal ligation by Dr. Quiroz at [facility] [place]. 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 Family History Father Diabetes Family/Other Diabetes maternal aunt Grandmother Diabetes maternal Stroke paternal Grandfather Stroke paternal and maternal Denies family history of Cervical cancer Colon cancer Ovarian cancer DVT (deep venous thrombosis) Heart disease Hyperlipidemia Breast cancer Anesthesia complication Bleeding disorder Pulmonary embolism Hypertension Uterine cancer Thyroid disease Social History (Updated 02/01/25 @ 03:39 by Zana Hodge MD) Smoking and tobacco/nicotine status: current every day tobacco/nicotine user Alcohol intake: never Substance/Drug Use: current Substance/Drug use frequency: few times a week Additional social history: Patient wants full code as discussed with Zana Hodge MD on 02/01/2025 - Tobacco Use: Denies current or past use Drug Use: Used marijuana a couple of times as a teenager; admits to meth use off and on Alcohol Use: Denies 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 Adopted: No Caregiver/support person: Yes Lives independently: Yes Household members: spouse Housing: House service: No Current occupational status: employed Pets and animals: No Sexually active: No Do you think of yourself as: Straight/Heterosexual Special christiano needs: No Female Reproductive History: Date of last menstrual period: 01/21/25 Vitals/I&O/Wt Last Vital Signs Temp 98.3 F 01/31/25 20:24 Pulse 59 L 02/01/25 00:11 Resp 18 01/31/25 20:24 BP 138/63 01/31/25 20:24 Pulse Ox 100 01/31/25 20:24 O2 Del Method Room Air 01/31/25 20:24 Physical Exam 2 Narrative: General well-developed well-nourished slender female no acute cardiopulmonary distress but in appears uncomfortable CV regular rate and rhythm Lungs clear to auscultation bilaterally Abdomen positive bowel tones soft mild epigastric tenderness and right upper quadrant tenderness moderate no rebound tenderness Calves no tenderness cords or pretibial edema Data 01/29/25 21:42 01/29/25 21:42 A&P Assessment and plan 1. Epigastric abdominal pain: Will obtain CHEM panel CBC and lipase. Differential includes cholecystitis with history of gastric sleeve and weight loss as well as pancreatitis without obvious precipitating risk factor 2. Nausea & vomiting: Will treat with antiemetics, proton pump inhibitor. The patient was given GI cocktail but that was not helpful. Patient has not pleuritic pain so ibuprofen which I put on hold his resumed Plan: Await labs to determine if patient has pancreatitis or cholecystitis consider abdominal ultrasound. Patient will be treated with Zofran and oxycodone for pain and nausea PDMP PDMP Reviewed: Not Reviewed Attestations 2 Medical Necessity Statement*: Patient remains in the hospital and will require greater than 2 midnights Coding Level of Care Code Acute Code for [facility] Fwd Diagnoses Epigastric abdominal pain R10.13 Nausea & vomiting R11.2
[2025-02-01 03:14] VITALS: RESP 17; O2SAT 98
[2025-02-01] MEDS: oxyCODONE 5 mg IR Tab/Cap PO ×3 (03:14→20:51)
[2025-02-01 04:51] LABS: Hematocrit 36.3 % (36-47); Hemoglobin 11.40 g/dL (11.27-16.99); Mean Corpuscular HGB Conc 31.4 g/dL (30-55); Mean Corpuscular Hemoglobin 25.9 pg (27-33); Mean Corpuscular Volume 82.5 fl (85-98); Nucleated Red Blood Cells % 0 %; Platelet Count 287 10^3/cmm (157-399); Red Blood Count 4.40 10^6/uL (3.85-5.65); White Blood Count 13.25 10^3/uL (3.29-11.43)
--- NOTE | 2025-02-01 05:01 | PC.NURSE ---
CONSULT At approximately [address] Montejo to inform him of pts symptoms throughout the beginning of the shift. At first pt complained of heartburn and was given Tums at this time. Pt then later on c/o nausea and this nurse administered zofran PO. Pt then started c/o pain in her lower sternum area to her upper abdomen and began vomiting. At this time Gustabo was notified. Dr. Montejo at this time ordered an Urgent EKG and told this nurse that he would contact the hospitalist for a medical consult
[2025-02-01 05:10] LABS: Troponin T (5th) Once < 6 ng/L (0-10)
[2025-02-01 05:13] LABS: Alanine Aminotransferase 20 U/L (0-33); Albumin Level 3.9 g/dL (3.5-5.2); Alkaline Phosphatase 49 U/L (35-105); Anion Gap 12.9 (5-19); Aspartate Amino Transferase 21 U/L (0-32); Blood Urea Nitrogen 7 mg/dL (6-20); Calcium 8.9 mg/dL (8.5-10.5); Carbon Dioxide 27 mmol/L (22-29); Chloride 101 mmol/L (98-107); Globulin 2.2 g/dL (1.3-4.6); Glucose 125 mg/dL (65-115); Lipase 22 U/L (13-60); Osmolality Calculated 283 mOsm/kg (285-295); Potassium 3.9 mmol/L (3.5-5.1); Sodium 137 mmol/L (136-145); Total Protein 6.1 g/dL (6.6-8.7)
--- NOTE | 2025-02-01 06:21 | XR_ITS ---
WS: [id number] XR chest 1V portable [id number] REASON FOR EXAM: elevated wbc and chest pain with pleurisy FINDINGS: The heart and the mediastinum are within normal limits. Calcified granulomatous disease bilaterally. No acute pulmonary parenchymal or pleural abnormality is noted. Bony thorax is intact without significant abnormality. XR/XR chest 1V portable [id number] IMPRESSION: No significant abnormality of the chest.
--- NOTE | 2025-02-01 06:40 | PC.NURSE ---
vs not completed pt sleeping soundly, nurse notified resp 16
[2025-02-01 07:44] VITALS: RESP 16
[2025-02-01] MEDS: PRENATAL VIT NO.130/IRON/FOLIC 1 EACH TABLET PO (07:44)
[2025-02-01 14:00] VITALS: BP 130/60; PULSE 60; RESP 16; TEMP 37; O2SAT 96
--- NOTE | 2025-02-01 15:22 | W.PM.NPUPNS ---
Subjective NPU Subjective: Patient presented today doing all right. She reports having frustration that she had not had much time to interact with vision per staff report. When this data analyst report writer attempted to see her she was sleeping. She was resistant to waking but had expressed concerns that her hold was up and she was not wanting to leave. Staff acknowledge there was no plan for any extension of her hold but that she would be able to stay if she signed then but otherwise we will plan for discharge tomorrow. Mental Status Exam MSE Comments: This is an underweight, thin white female in hospital scrubs with limited grooming and eye contact. There appeared to be pick rea on her lower right leg that could be infected. There was no evidence of abnormal involuntary motor movements. There was evidence of psychomotor agitation. She was cooperative on examination in mild distress. Her speech was normal in rate and volume. Mood described as not great, I got into a bad situation again, her affect was irritable. Thought process was more linear. Thought content: Patient denied suicidal or homicidal ideation. There was no evidence of bizarre delusions but did have ideas of reference. She reported somatic complaints. Attention and concentration were limited and memory appeared unreliable but none were formally tested.? She is alert and oriented to person, place and time. Insight, judgment and impulse control were impaired. Vitals/I&O/Wt Last Vital Signs Temp 98.6 F 02/01/25 14:00 Pulse 60 02/01/25 14:00 Resp 16 02/01/25 14:00 BP 130/60 02/01/25 14:00 Pulse Ox 96 02/01/25 14:00 O2 Del Method Room Air 01/31/25 20:24 Data NPU 02/01/25 04:41 02/01/25 04:41 A&P Assessment and plan 1. Acute psychosis: 2. Methamphetamine use disorder, severe: 3. Anxiety: 4. Substance induced mood disorder: 5. Parent-child relational problem: 6. Cannabis use disorder, severe, in sustained remission, dependence: 7. Infection: Plan: This is a 39-year-old female with methamphetamine induced psychosis with genetic loading for bipolar I disorder currently on a hold. Plan: 1. Continue home medication. 2. Continue every 15 minute checks for safety. 3. Encourage individual, group and milieu therapies. 4. Encourage sober living treatment after discharge at the highest level of care to which she is willing to commit. 5. Observe against the backdrop of the 96-hour hold. Hold dose tomorrow we will have her sign in if she plans on staying. 6. Obtain collateral information. 7. Appreciate hospitalist panel to evaluate her symptoms. Will follow recommendations as indicated. PDMP PDMP Reviewed: Not Reviewed Involuntary Hold Information Hold Status: Legal Status: 96 Hour Hold Date/Time Hold Expires: 02/02/25 @ 21:19 96 Hour Hold: 96 Hour Involuntary Admission: Yes Attestations NPU Medical Necessity Statement*: Inpatient hospitalization is medically necessary and the clinically appropriate intervention at this time. We will monitor medication to make changes as indicated. The patient's likely length of stay is 1-3 days. Coding Level of Care Code Acute Code for [facility] Fwd Diagnoses Acute psychosis F23 Methamphetamine use disorder, severe F15.20 Anxiety F41.9 Substance induced mood disorder F19.94 Parent-child relational problem Z62.820 Cannabis use disorder, severe, in sustained remission, dependence F12.21 Infection B99.9
[2025-02-01 20:17] VITALS: BP 121/82; PULSE 99; RESP 18; TEMP 37.3; O2SAT 94
[2025-02-01 20:51] VITALS: RESP 18; O2SAT 94
[2025-02-02 06:00] VITALS: BP 109/59; PULSE 97; RESP 18; TEMP 37.1; O2SAT 100
[2025-02-02] MEDS: PRENATAL VIT NO.130/IRON/FOLIC 1 EACH TABLET PO (08:13)
--- NOTE | 2025-02-02 08:31 | PC.NURSE ---
lateral RLE dressing with minimal yellow drainage and scant blood noted to dressing. Site with small open area and minimal redness surrounding wound. There is some malodor to the wound. Site was cleansed with NS and foam bandage applied. Patient reports that she has had this for weeks and thinks she may have been bitten by a spider. Physician notified.
[2025-02-02 10:09] LABS: Hematocrit 37.2 % (36-47); Hemoglobin 11.60 g/dL (11.27-16.99); Mean Corpuscular HGB Conc 31.2 g/dL (30-55); Mean Corpuscular Hemoglobin 25.8 pg (27-33); Mean Corpuscular Volume 82.9 fl (85-98); Nucleated Red Blood Cells % 0 %; Platelet Count 273 10^3/cmm (157-399); Red Blood Count 4.49 10^6/uL (3.85-5.65); White Blood Count 8.72 10^3/uL (3.29-11.43)
[2025-02-02 10:27] LABS: Alanine Aminotransferase 21 U/L (0-33); Albumin Level 3.5 g/dL (3.5-5.2); Alkaline Phosphatase 61 U/L (35-105); Anion Gap 12.8 (5-19); Aspartate Amino Transferase 25 U/L (0-32); Blood Urea Nitrogen 11 mg/dL (6-20); Calcium 8.5 mg/dL (8.5-10.5); Carbon Dioxide 27 mmol/L (22-29); Chloride 103 mmol/L (98-107); Globulin 2.6 g/dL (1.3-4.6); Glucose 139 mg/dL (65-115); Osmolality Calculated 288 mOsm/kg (285-295); Potassium 4.8 mmol/L (3.5-5.1); Sodium 138 mmol/L (136-145); Total Protein 6.1 g/dL (6.6-8.7)
--- NOTE | 2025-02-02 12:08 | P.PN_ITS ---
Subjective 2 Subjective: Patient is seen and examined at bedside this afternoon with request from primary team with concerns for infection of right lower extremity. Patient's labs with elevated ESR 33, C-reactive protein 87.1, afebrile with a normal white cell count. Patient states no allergies, entry wound on right calf circular with sanguinous drainage and mild erythema and surrounding tissues. Patient denies new concerns or complaints, but with elevated ESR and CRP felt that empiric antibiotic coverage for cellulitis was warranted, patient verbalizes agreement with planned interventions. Patient's primary care provider is Dr. Rivero, she states that she has a good relationship with her PCP and will follow-up with him outpatient. Patient is stable for discharge home from hospitalist perspective, we greatly appreciate the opportunity to consult the medical management of this patient. Vitals/I&O/Wt Last Vital Signs Temp 98.7 F 02/02/25 06:00 Pulse 97 02/02/25 06:00 Resp 18 02/02/25 06:00 BP 109/59 02/02/25 06:00 Pulse Ox 100 02/02/25 06:00 O2 Del Method Room Air 02/02/25 06:00 Physical Exam 2 Narrative: General well-developed well-nourished slender female no acute cardiopulmonary distress but in appears uncomfortable CV regular rate and rhythm Lungs clear to auscultation bilaterally Abdomen soft/non-tender Extremities with no edema Right Calf with small open wound, serosanguineous drainage scant, with surrounding erythema Data 02/02/25 09:50 02/02/25 09:50 A&P Assessment and plan 1. Cellulitis of right lower extremity: 2. Epigastric abdominal pain: 3. Nausea and vomiting, unspecified vomiting type: Plan: Cellulitis Right lower extremity - WBC 8.72 - ESR 33, C-reactive 87.1 - Continue outpatient treatment with oral Clindamycin - Recommended outpatient follow-up with primary care provider Dr. Rivero within 1 to 3 days of discharge. Epigastric Pain Nausea and vomiting, resolved - Symptoms have resolved - Will follow-up outpatient with concerns for GERD, Patient continues on PPI at discharge Acute Psychosis Anxiey - Management per attending Methamphetamine use disorder Cannabis Use Disorder - Continued cessation advised PDMP PDMP Reviewed: Last Reviewed 02/02/25 14:19 by Faviola Brown MEDICAL APPOINTMENT CLERK Attestations 2 Medical Necessity Statement*: Per Attending Coding Level of Care Code 92062 Diagnoses Cellulitis of right lower extremity L03.115 Site of cellulitis: extremity Site of cellulitis of extremity: lower extremity Laterality: right Epigastric abdominal pain R10.13 Nausea and vomiting, unspecified vomiting type R11.2 Vomiting type: unspecified
[2025-02-02 14:00] VITALS: BP 110/60; PULSE 90; RESP 18; TEMP 37; O2SAT 98
[2025-02-02 14:20] VITALS: BP 109/59; PULSE 97; RESP 18; TEMP 37.1; O2SAT 100
--- NOTE | 2025-02-02 15:13 | PC.NURSE ---
Patient discharge instructions reviewed with the patient. Patient given extensive education on medications, alcohol abuse, methamphetamine use and cellulitis. All questions were answered. Patient is returning to her mothers home where she has a camper to stay.
== END 2025-02-02 15:06 | disposition home or self-care (01) | DRG 776 ==
LOC: ER 22:36 → ER IP 23:47 → NP 01-30 09:28
PROVIDERS: Internal Medicine; Student in an Organized Health Care Education/Training Program; Admitting Provider Psychiatry & Neurology Psychiatry; Emergency Provider Physician Assistant; PCP Family Medicine; Visit Provider Psychiatry & Neurology Psychiatry
DX: F15.259 Other stimulant dependence with stimulant-induced psychotic disorder, unspecified (principal); F41.9 Anxiety disorder, unspecified; Z62.820 Parent-biological child conflict; F12.21 Cannabis dependence, in remission; L03.115 Cellulitis of right lower limb; R10.13 Epigastric pain; R11.2 Nausea with vomiting, unspecified; R63.6 Underweight; Z68.22 Body mass index [BMI] 22.0-22.9, adult; F17.200 Nicotine dependence, unspecified, uncomplicated; Z62.810 Personal history of physical and sexual abuse in childhood; Z81.8 Family history of other mental and behavioral disorders; Z98.84 Bariatric surgery status
CPT/HCPCS: 36415; 71045; 80053; 80306; 80307; 83690; 84484; 84703; 85025; 85378; 85651; 86140; 93005; 97165; 99285; J9999; Q0162